=== PATIENT | male | born 1970 | race Caucasian/White ===

== ENCOUNTER → 2016-08-09 | Outpatient (CLI) | payer BC ==
[~2016-08-09] MED LIST: PRLSR20 PO
[2016-08-09 12:19] LABS: URINE APPEARANCE CLEAR (CLEAR); URINE BILIRUBIN NEG (NEG); URINE COLOR DK YELLOW; URINE NITRITE NEG (NEG); URINE SPECIFIC GRAVITY 1.026 (1.000-1.030); UROBILINOGEN NEG (NEG)
[2016-08-09 12:20] LABS: BASO % 0.6 %; BASO ABS # 0.03 K/uL (0-0.2); COMPLETE YES; EOS % 1.1 %; HEMATOCRIT 45.3 % (42-52); LYMPH % 25.9 %; LYMPH ABS # 1.21 K/uL (1.2-3.4); MEAN CELL VOLUME 87.3 fL (80-100); MEAN CORPUSCULAR HEMOGLOBIN 29.9 pg (25-34); MEAN CORPUSCULAR HGB CONC 34.2 g/dl (32-36); MEAN PLATELET VOLUME 10.2 fL (7.4-10.4); MONO % 6.4 %; PLATELET COUNT 213 K/uL (130-400); RED BLOOD COUNT 5.19 M/uL (4.7-6.1); WHITE BLOOD COUNT 4.68 K/uL (4.8-10.8)
[2016-08-09 12:30] LABS: MANUAL MICROSCOPIC REQUIRED? NO; REVIEW REQ? NO
[2016-08-09 12:33] LABS: ALT/SGPT 22 U/L (12-78); BLOOD UREA NITROGEN 23 mg/dl (7-18); BUN/CREATININE RATIO 20.6 (10-20); CALCIUM 8.8 mg/dl (8.5-10.1); CARBON DIOXIDE 27 mmol/L (21-32); CHLORIDE 106 mmol/L (98-107); GLUCOSE 108 mg/dl (70-99); POTASSIUM 4.4 mmol/L (3.5-5.1); SODIUM 142 mmol/L (136-145)
[2016-08-09 12:43] LABS: ALB/GLOB RATIO 1.3 (0.9-2); ALKALINE PHOSPHATASE 59 U/L (45-117); AST/SGOT 16 U/L (15-37); THYROID STIMULATING HORMONE 0.702 uIu/ml (0.300-4.500)
[2016-08-09 15:31] LABS: LYME DISEASE AB IGG NEG (NEG); LYME DISEASE AB IGM NEG (NEG)
== END | disposition home or self-care (01) ==
LOC: C.LABBFT 10:03
PROVIDERS: ATTEND Nurse Practitioner
DX: R20.0 Anesthesia of skin (principal); R25.1 Tremor, unspecified; R42 Dizziness and giddiness

== ENCOUNTER → 2016-08-15 | Outpatient (CLI) | payer BC ==
[~2016-08-15] MED LIST changes: +GADAVIST IV PRN
--- NOTE | 2016-08-15 17:36 | DIAGNOSTIC IMAGING REPORT ---
MRI OF THE BRAIN WITHOUT AND WITH IV CONTRAST CLINICAL HISTORY: Right facial numbness, and progressive tremors and dizziness. COMPARISON STUDY: 11/27/2010 TECHNIQUE: MRI of the brain was performed from the vertex to the skull base utilizing various T1 and T2 weighted sequences. Following the IV administration of 10 mL of Gadavist contrast, additional enhanced images were obtained. FINDINGS: Sagittal T1, axial diffusion, proton density and T2 weighted axial, coronal FLAIR, and pre and post axial T1-weighted images were acquired. These were supplemented with post gadolinium coronal T1 weighted images. No intra or extra-axial mass lesions are visualized. Axial diffusion-weighted images reveal no evidence of acute or subacute infarction. There is no evidence of ventricular dilatation. Proton density T2-weighted and FLAIR images reveal no significant intraparenchymal signal abnormalities. There are no abnormal flow voids. There is no evidence of pathologic enhancement. IMPRESSION: Normal MRI of the brain for age Electronically signed by: Sonido De La Paz M.D. 08/15/2016 5:34 PM Dictated Date/Time: 08/15/2016 5:32 PM
== END | disposition home or self-care (01) ==
LOC: C.MRI 16:01
PROVIDERS: ATTEND Nurse Practitioner
DX: R42 Dizziness and giddiness (principal); R25.1 Tremor, unspecified; R20.0 Anesthesia of skin

== ENCOUNTER 2019-08-24 10:26 | Observation (INO) ==
[2019-08-24] MEDS ORDERED: OXYCODONE/ACETAMINOPHEN 5mg/325mg TAB PO STA (10:43)
[2019-08-24] MEDS ORDERED: CYCLOBENZAPRINE HCL 10 MG TAB PO STA (10:43)
[2019-08-24] MEDS ORDERED: DEXAMETHASONE **PF** INJ 10 MG/ML VIAL IM ONE (10:43)
--- NOTE | 2019-08-24 10:48 | Emergency Department Note ---
Impression & Plan Intractable low back pain, Strain of lumbar region, Lumbar radiculopathy ED Provider Note CHIEF COMPLAINT: Low back pain HISTORY OF PRESENT ILLNESS: This 49-year-old male patient presents to the emergency department, ambulatory, complaining of pain in the low back which began yesterday after moving a bed around at home. The patient reports pain in the left hip rating down into the left foot. The pain was gradual in onset, awoke this morning and pain is now constant and worse with movement. The patient notes the pain as shooting and throbbing and a 8/10. The patient has taken 600 mg ibuprofen and a Blandford at 8:30 AM without significant relief of the pain. The patient denies any loss of control of their bowel or bladder functions. There has been no leg numbness or weakness, and no change in sensation. No nausea or vomiting or abdominal pain. No chest pain or shortness of breath. The patient has had prior neck surgery and similar pain approximately 20 years ago. No dysuria or increased urinary frequency. REVIEW OF SYSTEMS: A 10 system review of systems was performed with positives and pertinent negatives listed in the history of present illness. All other systems were reviewed and are negative. ALLERGIES: Cipro, morphine PHYSICAL EXAM: VITALS: Vitals are noted on the nurse's note and reviewed by myself. Vital signs stable. GENERAL: This is a 49-year-old white male, in no acute distress, nondiaphoretic, well-developed well-nourished. SKIN: The skin was without rashes, erythema, edema, or bruising. Capillary refill less than 2 seconds. NECK: Supple without nuchal rigidity. No cervical spine tenderness. No paraspinous muscle tenderness. HEART: Regular rate and rhythm without murmurs gallops or rubs. LUNGS: Clear to auscultation bilaterally without wheezes, rales or rhonchi. ABDOMEN: Positive bowel sounds x 4. Normal tympanic percussion. Soft, nontender, without masses or organomegaly. Mancuso sign negative. MUSCULOSKELETAL: No muscle atrophy, erythema, or edema noted of the back. There is no tenderness over the lumbar spinous processes. There is no tenderness over the paraspinous muscles on the left. There is tenderness over the left SI joint. There is no tenderness over the thoracic spine or paraspinous muscles. There are muscle spasms present. The patient is slow to move around with maximum tenderness with sitting from a lying position. Positive left side straight leg raise test. NEURO: Patient was alert and oriented to person place and time. Normal sensation to light and sharp touch. Deep tendon reflexes 2+ in the lower extremities. Dorsalis pedis pulse 2+ bilaterally. Strength 5/5 and equal in the bilateral lower extremities. RADIOLOGY: XR lumbar spine 2-3V CLINICAL HISTORY: low back pain, left radiculopathy COMPARISON STUDY: No previous studies for comparison. FINDINGS: Alignment of the lumbar spine is anatomic. Vertebral body heights are maintained. There is no fracture or suspicious lesion by radiography. There is moderate disc space narrowing at L4-L5. There is mild to moderate multilevel facet arthrosis. Endplate osteophytosis is noted at multiple levels. IMPRESSION: 1. No acute lumbar spine fracture. 2. [id number] multilevel degenerative disc disease and facet arthrosis within the lumbar spine. ACT 112: Negative or not required by law. Electronically signed by: Travis Keene M.D. 08/24/2019 11:30 AM EMERGENCY DEPARTMENT COURSE: The patient was seen and evaluated as above. Patient was medicated with cyclobenzaprine, IM Decadron, and Percocet. X-rays p erformed reviewed by myself and radiologist as above. Discussed findings with patient at bedside. He was reassessed and notes ongoing severe pain. The patient was medicated with 1 mg IM Dilaudid. Patient was reassessed and continues to complain of ongoing pain. He does not feel comfortable going home and feels that he will be unable to manage his pain with p.o. pain medication. I advised the patient that his option at this point if he is not discharged home would be an observation admission for pain control. The patient would like to stay in the hospital for pain control until it improves. IV access obtained, labs drawn. Labs unrevealing with no leukocytosis or electrolyte abnormality. Urinalysis still pending. I discussed the case with the manager field sales as well as Dr. Glaser, [facility] hospitalist physician. She did agree to see and evaluate the patient. Please see her dictation regarding ongoing management care of this patient. Differential diagnosis includes musculoskeletal, disc herniation, fracture, metastatic disease, cord compression, discitis, sciatica, cauda equina, infection, aortic disease, renal colic, gastrointestinal, as well as other pathologies. I attest that I have personally reviewed the patient's current medication list. Blood Pressure Screening: Patient was found to have a slightly elevated blood pressure due to circumstances. I do not believe that the patient requires hypertension monitoring. The chart was completed utilizing [employer] Speech voice recognition software. Grammatical errors, random word insertions, pronoun errors, and incomplete sentences are an occasional consequence of this system due to software limitations, ambient noise, and hardware issues. Any formal questions or concerns about the content, text, or information contained within the body of this dictation should be directly addressed to the provider for clarification. Past Med/Surg History Medical History Cervical stenosis of spinal canal (Acute 06/09/14) GERD (gastroesophageal reflux disease) (Chronic) Surgical History (Updated 05/25/19 @ 12:41 by Daksha Murrell) H/O arthroscopy H/O nasal septoplasty H/O sinus surgery History of neck surgery Family History (Updated 05/25/19 @ 12:41 by Daksha Murrell) Other Breast cancer Diabetes Denies family history of Coronary heart disease Colorectal cancer Social History Preferred Language: [place] Communication Ability: Effective Visual Impairment: No Limitations Hearing Ability: Normal Beliefs That Will Affect Care: None marital status: current occupational status: employed current occupation: [employer] Feels Safe at Home: Yes Smoking Status: Never smoker Allergies Allergies Allergy/AdvReac Type Severity Reaction Status Date / Time Cipro Allergy Unknown SEVERLY ILL Unverified 08/31/14 20:27 ciprofloxacin Allergy Unknown SEVERLY ILL Unverified 08/24/19 12:13 morphine Allergy Unknown HIVES Verified 08/24/19 12:13 Quinolones Allergy Unknown Verified 08/24/19 12:13 Home Meds Home Medications Medication Instructions Recorded Confirmed ibuprofen [Advil] 600 mg PO Q6H PRN 08/24/19 08/24/19 oxycodone-acetaminophen [Percocet] 1 - 2 tab PO Q6H 08/24/19 08/24/19 Results & Data (ED) Vital Signs Vital Signs - 24 hr 08/24/19 10:27 08/24/19 11:56 08/24/19 14:00 Temperature 36.6 C Temperature Source Oral Pulse Rate 58 L Pulse Rate [Apical] 55 L 60 Respiratory Rate 20 18 18 Respiratory Effort / Characteristics Non-Labored Respiratory Depth Normal Blood Pressure 147/87 H Blood Pressure [Left Arm] 111/66 115/74 Blood Pressure Mean 107 Blood Pressure Mean [Left Arm] 81 87 Blood Pressure Position Sitting Pulse Oximetry 99 98 98 Oxygen Delivery Method Room Air Room Air Room Air Sepsis Recent Fever Within 48 Hours No Sepsis New/Unexplained Change in Mental Status No Sepsis Action Taken by Nursing No Action Required Laboratory Data Result diagrams: 08/24/19 12:30 08/24/19 12:30 Lab Results 08/24/19 08/24/19 Range/Units 12:30 12:30 WBC 5.89 (4.8-10.8) K/uL RBC 5.09 (4.7-6.1) M/uL Hgb 15.5 (14.0-18.0) g/dL Hct 45.1 (42-52) % MCV 88.6 (80-100) fL MCH 30.5 (25-34) pg MCHC 34.4 (32-36) g/dL RDW Std Deviation 40.5 (36.4-46.3) fL RDW Coeff of Daniella 12.5 (11.5-14.5) % Plt Count 170 (130-400) K/uL MPV 10.8 H (7.4-10.4) fL Immature Gran % (Auto) 0.0 % Neut % (Auto) 88.6 % Lymph % (Auto) 9.0 % Arroyo % (Auto) 1.9 % Eos % (Auto) 0.2 % Baso % (Auto) 0.3 % Immature Gran # (Auto) 0.00 (0.00-0.02) K/uL Neut # (Auto) 5.22 (1.4-6.5) K/uL Lymph # (Auto) 0.53 L (1.2-3.4) K/uL Arroyo # (Auto) 0.11 (0.11-0.59) K/uL Eos # (Auto) 0.01 (0-0.5) K/uL Baso # (Auto) 0.02 (0-0.2) K/uL Sodium 139 (136-145) mmol/L Potassium 4.6 (3.5-5.1) mmol/L Chloride 108 H (98-107) mmol/L Carbon Dioxide 27 (21-32) mmol/L Anion Gap 3.0 (3-11) BUN 19 H (7-18) mg/dl Creatinine 1.06 (0.6-1.4) mg/dl Est Cr Clr Drug Dosing Not Reportable Est GFR ( Amer) 95.0 Est GFR (Non-Af Amer) 82.0 BUN/Creatinine Ratio 17.5 (10-20) Glucose 118 H (70-99) mg/dl Calcium 8.8 (8.5-10.1) mg/dl Administered Medications Discontinued Medications Cyclobenzaprine HCl (Flexeril) 10 mg PO NOW STA Stop: 08/24/19 10:44 Last Admin: 08/24/19 10:48 Dose: 10 mg Documented by: [id number] Dexamethasone Sodium Phosphate (Decadron Pf) 10 mg IM NOW ONE Stop: 08/24/19 10:44 Last Admin: 08/24/19 10:48 Dose: 10 mg Documented by: [id number] Hydromorphone HCl (Dilaudid) 1 mg IM NOW STA Stop: 08/24/19 11:26 Last Admin: 08/24/19 11:31 Dose: 1 mg Documented by: [id number] Oxycodone/Acetaminophen (Percocet 5mg/325mg) 1 tab PO NOW STA Stop: 08/24/19 10:44 Last Admin: 08/24/19 10:48 Dose: 1 tab Documented by: [id number] Discharge Plan Visit Data Chief Complaint: Back Injury/Pain Stated Complaint: back pain ED Provider: Rachel Horton ED Midlevel Provider: Iva Crowley Discharge Problem: Intractable low back pain, Strain of lumbar region, Lumbar radiculopathy Patient Disposition: Admitted As Inpatient Condition: Good Forms Stand Alone Forms: [email or web address] Prescriptions Prescriptions: No Action oxycodone-acetaminophen [Percocet] 5-325 mg tablet 1 - 2 tab PO Q6H RF: 0 ibuprofen [Advil] 200 mg Tablet 600 mg PO Q6H PRN (Reason: Pain) RF: 0 Referrals Referrals: Omayra Adhikari CRNP [Primary Care Provider] -
[2019-08-24] MEDS ORDERED: HYDROmorphone INJ 1 MG/ML SYRINGE IM STA (11:25)
--- NOTE | 2019-08-24 11:31 | XRay Report ---
XR lumbar spine 2-3V CLINICAL HISTORY: low back pain, left radiculopathy COMPARISON STUDY: No previous studies for comparison. FINDINGS: Alignment of the lumbar spine is anatomic. Vertebral body heights are maintained. There is no fracture or suspicious lesion by radiography. There is moderate disc space narrowing at L4-L5. The re is mild to moderate multilevel facet arthrosis. Endplate osteophytosis is noted at multiple levels . IMPRESSION: 1. No acute lumbar spine fracture. 2. [id number] multilevel degenerative disc disease and facet arthrosis within the lumbar spine. ACT 112: Negative or not required by law. Electronically signed by: Travis Keene M.D. 08/24/2019 11:30 AM
[2019-08-24 12:52] LABS: Basophils # (auto) 0.02 K/uL (0-0.2); Basophils % (auto) 0.3 %; Eosinophils # (auto) 0.01 K/uL (0-0.5); Eosinophils % (auto) 0.2 %; Hematocrit (blood only) 45.1 % (42-52); Hemoglobin 15.5 g/dL (14.0-18.0); Lymphocytes # (auto) 0.53 K/uL (1.2-3.4); Mean Corpuscular Hemoglobin 30.5 pg (25-34); Mean Corpuscular Hgb Conc 34.4 g/dL (32-36); Mean Corpuscular Volume 88.6 fL (80-100); Mean Platelet Volume 10.8 fL (7.4-10.4); Monocytes # (auto) 0.11 K/uL (0.11-0.59); Monocytes % (auto) 1.9 %; Neutrophils # (auto) 5.22 K/uL (1.4-6.5); Neutrophils % (auto) 88.6 %; Platelet Count 170 K/uL (130-400); RDW Coefficient of Variation 12.5 % (11.5-14.5); RDW Standard Deviation 40.5 fL (36.4-46.3); Red Blood Count 5.09 M/uL (4.7-6.1); White Blood Count 5.89 K/uL (4.8-10.8)
[2019-08-24 12:59] LABS: BUN Creatinine Ratio 17.5 (10-20); Blood Urea Nitrogen 19 mg/dl (7-18); Calcium 8.8 mg/dl (8.5-10.1); Carbon Dioxide 27 mmol/L (21-32); Chloride 108 mmol/L (98-107); Glucose 118 mg/dl (70-99); Potassium 4.6 mmol/L (3.5-5.1); Sodium 139 mmol/L (136-145)
[2019-08-24] MEDS ORDERED: HYDROmorphone INJ 1 MG/ML SYRINGE IV PRN (15:47)
[2019-08-24] MEDS ORDERED: DEXAMETHASONE SOD INJ 4 MG/ML VIAL IV SCH (15:47)
[2019-08-24] MEDS ORDERED: ONDANSETRON INJ 2 MG/ML 2 ML VIAL IV PRN (15:47)
[2019-08-24] MEDS ORDERED: IBUPROFEN 600 MG TAB PO PRN (15:47)
[2019-08-24] MEDS ORDERED: MAGNESIUM HYDROXIDE SUSP 30 ML UDC PO PRN (15:47)
[2019-08-24] MEDS ORDERED: ACETAMINOPHEN 325 MG TAB PO PRN (15:47)
[2019-08-24] MEDS: OXYCODONE/ACETAMINOPHEN 5mg/325mg TAB PO SCH ×3 (16:00→22:01)
--- NOTE | 2019-08-24 16:40 | History & Physical Report ---
Date of Service August 24, 2019 Assessment & Plan (1) Intractable low back pain: XR neg No improvement with ED interventions Start decadron 8mg Q6h and monitor PRN morphine Has appt with Dr. Hawkins on Saturday. Discussed MRI now vs monitoring with steroids in an effort to avoid and pt states he prefers to hold on MRI for now (2) GERD (gastroesophageal reflux disease): PRN as prior (3) DVT prophylaxis: SCDs Admission and Anticipated Discharge Date Admission Date: August 24, 2019 History of Present Illness Primary Care Provider: SCOTT Garcia 49 y/o M c/o intractable LBP. Pt states he was moving a bed yesterday when he had sudden onset of L sided LBP. He went for a run after and noted that his back was very sore, which is unusual for him. He took some ibuprofen and went to bed. He woke this AM with worsening LBP that moved into his L hip and LE. He is unable to ambulate due to the pain and feels some LE weakness as well. He did try more ibuprofen and this did not help. He had percocet at home from a prior surgery and took this, but also no improvement. Pt came to the ED at that time. Denies loss of bowel or bladder continence. No prior hx of back issues. Pt feels his usual at this time. Pt denies fever, SOB, chest pain, abd pain, n/v/c/d, LE or swelling. In the ED, pt was given flexaril, percocet, and decadron with no improvement in sx. He did have some relief with dilaudid. "It took the edge off, but barely." He cannot ambulate and feels he cannot go home with his current level of pain. He was able to get an appt with Dr. Hawkins, but not until Saturday. If sx are ongoing, he is planning MRI at that time. Allergies Allergy/AdvReac Type Severity Reaction Status Date / Time Cipro Allergy Unknown SEVERLY ILL Unverified 08/31/14 20:27 ciprofloxacin Allergy Unknown SEVERLY ILL Unverified 08/24/19 12:13 morphine Allergy Unknown HIVES Verified 08/24/19 12:13 Quinolones Allergy Unknown Verified 08/24/19 12:13 Home Medications Home Medications Medication Instructions Recorded Confirmed Type ibuprofen [Advil] 600 mg PO Q6H PRN 08/24/19 08/24/19 History oxycodone-acetaminophen [Percocet] 1 - 2 tab PO Q6H 08/24/19 08/24/19 History Past Med/Surg History Medical History Cervical stenosis of spinal canal (Acute 06/09/14) GERD (gastroesophageal reflux disease) (Chronic) Surgical History H/O arthroscopy H/O nasal septoplasty H/O sinus surgery History of neck surgery Family History Other Breast cancer Diabetes Denies family history of Coronary heart disease Colorectal cancer Social History Preferred Language: Fijian Communication Ability: Effective Visual Impairment: No Limitations Hearing Ability: Normal Lever Operator Required: No Beliefs That Will Affect Care: None marital status: Current Living Situation: Spouse Current Living Situation Comment: current occupational status: employed current occupation: [employer] Other Information That Helps Us Care for You: No Feels Safe at Home: Yes Safety Concerns: Feels Safe At This Time Smoking Status: Never smoker Do You Dip or Chew Tobacco: No ; Second Hand Exposure: No ; Hx Alcohol Use: No Hx Substance Use: No Review of Systems Review of Systems: Pertinent positives and negatives reviewed in HPI--all others negative Physical Exam Constitutional: WD/WN, vitals as above Eyes: normal visual ceron by confrontation and + anicteric sclerae Neck: normal visual inspection and trachea midline Respiratory: normal respiratory effort, lungs clear to auscultation Cardiovascular: Rate/Rhythm: regular rate and regular rhythm Gastrointestinal (Abdomen): Inspection/Auscultation: abdomen not distended Percussion/Palpation: abdomen soft; abdomen nontender Musculoskeletal: Head/Neck/Chest: normocephalic and head atraumatic negative for edema, peripheral pulses intact L sided lumbar spasm with point TTP noted around L4-5 area Skin: no rashes, warm and dry Neurologic: awake; not confused Speech / Cognition: normal speech Psychiatric: A+Ox3, euthymic affect Results & Data Results & Data ([facility]) Vital Signs (Past 12 Hours) Vital Signs Temp Pulse Pulse Pulse Resp BP BP 08/24/19 15:35 36.8 C 50 L 16 115/66 08/24/19 15:12 51 L 16 114/69 08/24/19 14:00 60 18 115/74 08/24/19 11:56 55 L 18 111/66 08/24/19 10:27 36.6 C 58 L 20 147/87 H Pulse Ox 08/24/19 15:35 98 08/24/19 15:12 99 08/24/19 14:00 98 08/24/19 11:56 98 08/24/19 10:27 99 Diagnostic Findings Lumbar XR: neg for acute Code Status & VTE Plan Code Status Full code VTE Prophylaxis Plan VTE Prophylaxis will be ordered: Yes PG Care Time/CCT Total # of Minutes Spent Total Time Spent with Patient: Total time spent is greater than 50% in coordination of care (as documented) at patient's floor/unit and/or counseling patient: Coding Level of Care Code 85014 OBS Care - Level 2 Diagnoses Intractable low back pain M54.5 GERD (gastroesophageal reflux disease) K21.9 DVT prophylaxis Z29.9
[2019-08-24] MEDS: DEXAMETHASONE SOD PHOSPHATE 8 MG in SYRINGE 0 ML IV SCH ×2 (16:47→22:03)
[2019-08-24 19:07] LABS: Appearance Urine Clear (Clear); Bilirubin Urine Negative (Negative); Blood Urine Negative (Negative); Color Urine Yellow; Glucose Urine UA Negative (Negative); Ketones Urine Trace (Negative); Leukocyte Esterase Urine Negative (Negative); Nitrite Urine Negative (Negative); Protein Urine Negative (Negative); Specific Gravity Urine 1.019 (1.000-1.030); Urobilinogen Urine Negative (Negative); pH Urine 6.5 (4.5-7.5)
[2019-08-25] MEDS: OXYCODONE/ACETAMINOPHEN 5mg/325mg TAB PO SCH ×2 (03:51→10:00)
[2019-08-25] MEDS: DEXAMETHASONE SOD PHOSPHATE 8 MG in SYRINGE 0 ML IV SCH ×2 (03:51→10:00)
[2019-08-25] MEDS ORDERED: LIDOCAINE 5% 1 PATCH TD SCH (09:00)
--- NOTE | 2019-08-25 12:55 | Discharge Summary ---
Date of Service August 25, 2019 Admission HPI Per Admitting Provider 49 y/o M c/o intractable LBP. Pt states he was moving a bed yesterday when he had sudden onset of L sided LBP. He went for a run after and noted that his back was very sore, which is unusual for him. He took some ibuprofen and went to bed. He woke this AM with worsening LBP that moved into his L hip and LE. He is unable to ambulate due to the pain and feels some LE weakness as well. He did try more ibuprofen and this did not help. He had percocet at home from a prior surgery and took this, but also no improvement. Pt came to the ED at that time. Denies loss of bowel or bladder continence. No prior hx of back issues. Pt feels his usual at this time. Pt denies fever, SOB, chest pain, abd pain, n/v/c/d, LE or swelling. In the ED, pt was given flexaril, percocet, and decadron with no improvement in sx. He did have some relief with dilaudid. "It took the edge off, but barely." He cannot ambulate and feels he cannot go home with his current level of pain. He was able to get an appt with Dr. Hawkins, but not until Saturday. If sx are ongoing, he is planning MRI at that time. Admission Exam Per Admitting Provider Constitutional: WD/WN, vitals as above Eyes: normal visual ceron by confrontation and + anicteric sclerae Neck: normal visual inspection and trachea midline Respiratory: normal respiratory effort, lungs clear to auscultation Cardiovascular: Rate/Rhythm: regular rate and regular rhythm Gastrointestinal (Abdomen): Inspection/Auscultation: abdomen not distended Percussion/Palpation: abdomen soft; abdomen nontender Musculoskeletal: Head/Neck/Chest: normocephalic and head atraumatic negative for edema, peripheral pulses intact L sided lumbar spasm with point TTP noted around L4-5 area Skin: no rashes, warm and dry Neurologic: awake; not confused Speech / Cognition: normal speech Psychiatric: A+Ox3, euthymic affect Principal Diagnosis L5 lumbar radiculopathy Lumbar back strain Intractable back pain Discharge Exam Constitutional WD/WN, vitals as above Eyes + anicteric sclerae; normal pupil size Respiratory normal respiratory effort; no respiratory distress Musculoskeletal No central spinal tenderness, Left paraspinal tenderness around L4/5 on palpation Neurologic moves all extremities and + focal motor deficit (left 1st toe dorsiflexion 4/5, ankle plantar/dorsiflexion 5/5); not confused Motor/Sensory: no sensory deficit Otherwise normal b/l LE motor, sensory examination. Psychiatric A+Ox3, euthymic affect Discharge Data Allergies Allergy/AdvReac Type Severity Reaction Status Date / Time Cipro Allergy Unknown SEVERLY ILL Unverified 08/31/14 20:27 ciprofloxacin Allergy Unknown SEVERLY ILL Unverified 08/27/19 10:50 morphine Allergy Unknown HIVES Verified 08/27/19 10:50 Quinolones Allergy Unknown Verified 08/27/19 10:50 Consultations 08/24/19 14:13 ED Decision to Admit Stat Hospital Course (1) Lumbar radiculopathy: Reno Durand is a 49 year old male admitted for observation overnight for intractable back pain. Based on history, lumbar spine XR and exam findings suspected to have left L5 radiculopathy caused by disc herniation in addition to lumbar paraspinal muscle strain. Most notably has reduced 1st toe dorsiflexion on exam. Improved with IV Decadron and prescribed PO Decadron on discharge with tapering course over 8 days. He already has follow up arranged tomorrow with Dr Hawkins for ongoing management of this. Percocet prescribed as needed in addition (5 tabs sent to pharmacy). Recommended no high impact activities (such as running) until otherwise advised. He is a keen runner and suspect this was caused by ongoing high impact activities. Highly recommended he adds more stretching to his exercise regimen once he recovers from this. (2) Intractable low back pain: (3) GERD (gastroesophageal reflux disease): (4) Strain of lumbar region: Total Time Total Time Spent Total Time Spent (In Minutes): 25 Total Time Includes: Examination of the Patient, Discharge Planning and Medication Reconciliation Discharge Plan Discharge Items Patient Disposition: Home - Self-Care Reason For Visit: INTRACTABLE BACK PAIN Discharge Diagnosis: L5 lumbar radiculopathy Lumbar back strain Intractable back pain Condition on Discharge: Good Activity: Per Instructions section Non-emergency contact: Surgeon Call non-emergency contact if: you have any medication questions and your symptoms worsen Follow-up/Referrals: Omayra Adhikari CRNP [Primary Care Provider] - (no follow up required) Harsha Hawkins DO [Surgeon] - (as previous arranged) Diet: Regular Addtl Attending Provider Instructions: You were admitted overnight for intractable back pain. Based on history, lumbar spine XR and exam findings suspect you have L5 radiculopathy caused disc herniation. This was treated with IV steroids and you should continue on tapering course of Decadron as prescribed. Avoid NSAIDs (such as ibuprofen, Advil, Motrin, naproxen, meloxicam etc...) while on steroids unless otherwise advised by a physician. If you develop heartburn or gastritis while on steroids recommend using over the counter generic omeprazole (brand name Prilosec) or contacting your orthopedic surgeon or primary care physician. If you develop black stool please contact your primary care physician immediately. You can use acetaminophen regularly in addition to this for pain relief OR Percocet (this contains acetaminophen in addition to oxycodone) as needed. Do not exceed total 3250mg acetaminophen (Tylenol) in 24 hours. You may also wish to purchase lidocaine patch over the counter if this has been helpful. Please follow up with your back surgeon Dr Hawkins as previously arranged for ongoing management. Recommend no high impact activities (such as running) until otherwise advised from a healthcare provider, but please continue to ambulate as able. Recommend avoiding all strenuous activities until follow up with Dr Hawkins. Kind regards, Dr Kareem Kelly Pending Studies at Discharge: No Stand-Alone Forms: [facility], Opioid Pain Management, Smoking Cessation Medications and DC Order Prescriptions: New dexamethasone [Decadron] 4 mg tablet See Rx Instructions .ROUTE .COMPLEX Qty: 10 RF: 0 oxycodone-acetaminophen [Percocet] 5-325 mg tablet 1 - 2 tab PO Q6H PRN (Reason: pain) Qty: 5 RF: 0 Discontinued oxycodone-acetaminophen [Percocet] 5-325 mg tablet 1 - 2 tab PO Q6H RF: 0 ibuprofen [Advil] 200 mg Tablet 600 mg PO Q6H PRN (Reason: Pain) RF: 0 Discharge Orders: Discharge Order (Routine); Ordered 08/25/19 Ordered By: Kareem Fierro/Other Patient Handouts: Back Pain Relieve, Back Safety Basics Good Posture Admission Data Admit Date/Time: 08/24/19 14:13 Attending Provider: Myriam Glaser Admit Provider: Myriam Glaser Primary Care Provider: Omayra Adhikari Other Interventions: Discharge Summary Assessment (RN) Last Done: 08/25/19 13:17 DC Date/Time DO NOT enter until pt leaves facility: 08/25/19 14:17 Coding Level of Care Code 36114 OBS Care - Discharge Diagnoses Lumbar radiculopathy M54.16 Intractable low back pain M54.5 GERD (gastroesophageal reflux disease) K21.9 Strain of lumbar region S39.012A Encounter type: initial encounter
== END 2019-08-25 14:17 | disposition home or self-care (01) ==
LOC: 3E 10:26 → ED 10:26 → 3E 15:14

== ENCOUNTER 2019-08-29 21:28 | Inpatient (IN) ==
[2019-08-29] MEDS ORDERED: SODIUM CHLORIDE 0.9% 1000ML 1,000 ML IV ONE (21:55)
[2019-08-29] MEDS ORDERED: HYDROmorphone INJ 1 MG/ML SYRINGE IV STA (21:55)
--- NOTE | 2019-08-29 22:08 | Emergency Department Note ---
History of Present Illness General Chief complaint: Abdominal Pain Stated complaint: PAIN IN STOMACH Time Seen by Provider: 08/29/19 21:36 Source: patient Mode of arrival: ambulatory Limitations: no limitations History of Present Illness Maximum Pain Intensity: 9 This patient is a 49-year-old male who presents to the emergency department for evaluation of severe upper abdominal pain. Patient was seen in the ED earlier today and diagnosed with possible pancreatitis. He reports that his pain has been severe throughout the day and is only relieved by taking oxycodone. Pain is worsened when he has anything to eat or with any movement. He rates his discomfort a 9/10 and states it is a severe, sharp pain in the epigastric region. Pain does not radiate anywhere. He has not vomited today, but did have some nausea and vomiting yesterday which he feels was more associated with the severe pain he was having. He denies any urinary symptoms, changes in bowel movements, chest pain, shortness of breath, or cough. He has not taken his temperature at home. He denies any history of similar symptoms. He was r ecently treated with a course of prednisone for lumbar radiculopathy. He reports a history of multiple orthopedic surgeries, denies any history of abdominal surgeries or other chronic medical conditions. He denies any recent travel. He denies alcohol use. Home Medications Home Medications Medication Instructions Recorded Confirmed Type ondansetron 4 mg PO Q6 PRN #14 tab 08/29/19 08/29/19 Rx oxycodone-acetaminophen 1 tab PO Q8H PRN 08/29/19 08/29/19 History Allergies Allergy/AdvReac Type Severity Reaction Status Date / Time Cipro Allergy Unknown SEVERLY ILL Unverified 08/31/14 20:27 ciprofloxacin Allergy Unknown SEVERLY ILL Unverified 08/29/19 10:55 morphine Allergy Unknown HIVES Verified 08/29/19 22:05 Quinolones Allergy Unknown Verified 08/29/19 10:55 Past Med/Surg History Medical History Cervical stenosis of spinal canal (Acute 06/09/14) GERD (gastroesophageal reflux disease) (Chronic) Surgical History H/O arthroscopy H/O nasal septoplasty H/O sinus surgery History of neck surgery Social History Preferred Language: Syriac Communication Ability: Effective Visual Impairment: No Limitations Hearing Ability: Normal Coke Oven Patcher Required: No Beliefs That Will Affect Care: None marital status: Current Living Situation: Spouse Current Living Situation Comment: current occupational status: employed current occupation: [employer] Other Information That Helps Us Care for You: No Feels Safe at Home: Yes Safety Concerns: Feels Safe At This Time Smoking Status: Never smoker Do You Dip or Chew Tobacco: No ; Second Hand Exposure: No ; Tobacco Cessation Education Requested by Patient: No Hx Alcohol Use: No Hx Substance Use: No Review of Systems A total of 10 systems reviewed and were otherwise negative Physical Exam Vital Signs Vital Signs - 24 hr 08/29/19 21:32 08/29/19 23:23 Temperature 38.3 C H Temperature Source Oral Pulse Rate 73 Pulse Rate [Finger] 74 Respiratory Rate 20 18 Respiratory Effort / Characteristics Non-Labored Respiratory Depth Normal Blood Pressure 156/67 H Blood Pressure [Right Arm] 130/74 Blood Pressure Mean 96 Blood Pressure Mean [Right Arm] 92 Pulse Oximetry 94 94 Oxygen Delivery Method Room Air Room Air Sepsis Recent Fever Within 48 Hours Yes Sepsis New/Unexplained Change in Mental Status No Sepsis Action Taken by Nursing No Action Required VITALS: Vitals are noted on the nurse's note and reviewed by myself. GENERAL: This is a 49-year-old male, in no significant distress but uncomfortab le appearing, well-developed well-nourished. SKIN: The skin was without rashes. No jaundice. EYES: Pupils equal round and reactive to light and accommodation. No scleral icterus. MOUTH: Mucous membranes moist. Tonsils are not enlarged. Pharynx without erythema or exudate. NECK: Supple without nuchal rigidity. No lymphadenopathy. HEART: Regular rate and rhythm without murmurs gallops or rubs. LUNGS: Clear to auscultation bilaterally without wheezes, rales or rhonchi. No retractions or accessory muscle use. ABDOMEN: Positive bowel sounds x 4. Abdomen is soft and nondistended. Moderate tenderness to palpation in the epigastric region. Mild tenderness in the right upper quadrant. No guarding or rebound tenderness. EXTREMITIES: No pitting edema of the lower extremities. NEURO: Patient was alert and oriented to person place and time. Course Consultations Consultation #1: Dr. Ed Lomas [facility] [place] hospitalist Administered Medications Sodium Chloride (Nss 1000ml) 1,000 mls @ 200 mls/hr IV .Q5H MAGDALENA Stop: 09/29/19 01:28 Last Admin: 08/30/19 01:48 Dose: 200 mls/hr Documented by: [id number] Discontinued Medications Hydromorphone HCl (Dilaudid) 1 mg IV NOW STA Stop: 08/29/19 21:56 Last Admin: 08/29/19 22:14 Dose: 1 mg Documented by: [id number] Hydromorphone HCl (Dilaudid) 0.5 mg IV NOW STA Stop: 08/30/19 00:13 Last Admin: 08/30/19 00:15 Dose: 0.5 mg Documented by: [id number] Sodium Chloride (Nss 1000ml) 1,000 mls @ 999 mls/hr IV .Q1H1M ONE Stop: 08/29/19 22:55 Last Infusion: 08/29/19 23:29 Dose: 0 mls/hr Documented by: [id number] Admin: 08/29/19 22:14 Dose: 999 mls/hr Documented by: [id number] Ioversol (Optiray 320 100ml) 94 ml IV ONCE PRN PRN Reason: Interaction Checking Stop: 09/02/19 22:42 Last Admin: 08/29/19 22:43 Dose: 94 ml Documented by: [id number] Medical Decision Making Differential Diagnosis Differential diagnosis includes appendicitis, testicular torsion, infections, diverticulitis, UTI, obstruction, mesenteric ischemia, aortic pathology, inflammatory bowel disease, renal colic, PUD, pancreatitis, biliary pathology, hernia, volvulus, constipation, as well as other pathologies. Medical Records Attestation: I reviewed the patient's medical records. Home Medications Current Medication List: was personally reviewed by me Laboratory Data Attestation: I reviewed the patient's lab results. Result diagrams: 08/29/19 22:20 08/29/19 22:20 Lab Results 08/29/19 08/29/19 08/29/19 Range/Units 22:20 22:20 22:20 WBC 10.93 H (4.8-10.8) K/uL RBC 5.07 (4.7-6.1) M/uL Hgb 15.9 (14.0-18.0) g/dL Hct 45.2 (42-52) % MCV 89.2 (80-100) fL MCH 31.4 (25-34) pg MCHC 35.2 (32-36) g/dL RDW Std Deviation 41.1 (36.4-46.3) fL RDW Coeff of Daniella 12.7 (11.5-14.5) % Plt Count 177 (130-400) K/uL MPV 10.5 H (7.4-10.4) fL Immature Gran % (Auto) 0.3 % Neut % (Auto) 79.1 % Lymph % (Auto) 9.6 % [place] % (Auto) 10.3 % Eos % (Auto) 0.6 % Baso % (Auto) 0.1 % Immature Gran # (Auto) 0.03 H (0.00-0.02) K/uL Neut # (Auto) 8.64 H (1.4-6.5) K/uL Lymph # (Auto) 1.05 L (1.2-3.4) K/uL [place] # (Auto) 1.13 H (0.11-0.59) K/uL Eos # (Auto) 0.07 (0-0.5) K/uL Baso # (Auto) 0.01 (0-0.2) K/uL Sodium 135 L (136-145) mmol/L Potassium 3.7 (3.5-5.1) mmol/L Chloride 102 (98-107) mmol/L Carbon Dioxide 28 (21-32) mmol/L Anion Gap 5.0 (3-11) BUN 14 (7-18) mg/dl Creatinine 1.03 (0.6-1.4) mg/dl Est Cr Clr Drug Dosing 107.5 ml/min Est GFR ( Amer) 98.4 Est GFR (Non-Af Amer) 84.9 BUN/Creatinine Ratio 13.2 (10-20) Glucose 100 H (70-99) mg/dl Lactate 1.7 (0.4-2.0) mmol/L Calcium 8.3 L (8.5-10.1) mg/dl Total Bilirubin 1.9 H D (0.2-1) mg/dl Direct Bilirubin 0.4 H (0-0.2) mg/dl AST 14 L (15-37) U/L ALT 24 (12-78) U/L Alkaline Phosphatase 60 (45-117) U/L Troponin I < 0.015 (0-0.045) ng/ml Total Protein 7.0 (6.4-8.2) gm/dl Albumin 3.4 (3.4-5.0) gm/dl Lipase 509 H (73-393) U/L Imaging Data Attestation: I personally reviewed and interpreted this imaging study as follows: Radiologist's Impression: CT abd pelvis IV con only FINDINGS: Learning Engineer topogram: Vasectomy clips noted. Lung bases: Normal heart size. No pericardial or pleural effusion. Minimal dependent changes likely atelectasis. Liver: Normal morphology. Few hypodense lesions likely hepatic cysts or hemangiomas. Patent hepatic vasculature. Biliary: No intrahepatic or extrahepatic biliary ductal dilatation. Normal gallbladder. Pancreas: Peripancreatic fat stranding along the pancreatic tail with small to moderate fluid along the dorsum of the pancreatic tail tracking along the left anterior pararenal space. This tracks to the medial aspect of the spleen. Normal enhancement of the pancreatic parenchyma. Spleen: Normal. Splenule noted. Adrenal glands: Normal. Kidneys and ureters: Normal. No hydronephrosis. Bladder: Normal. Pelvic organs: Prostate and seminal vesicles normal. Vasectomy clips noted. Bowel: Normal appendix. Small bowel loops in the central and left mid abdomen containing feces. Mild distention measuring up to 3.4 cm in diameter. No convincing evidence of a transition point to suggest obstruction. Peritoneal cavity: No free fluid or intraperitoneal gas. Retroperitoneal fluid in the left anterior pararenal space as mentioned. Lymph nodes: No enlarged lymph nodes in the abdomen or pelvis. Vasculature: Aorta and IVC patent and normal in caliber. Abdominal wall: Normal. Musculoskeletal: Degenerative changes of the spine. IMPRESSION: 1. Interstitial edematous pancreatitis with acute peripancreatic fluid in the left anterior pararenal space. No evidence of necrosis. 2. Feces within mildly distended small bowel loops in the central and left mid abdomen. No convincing evidence of obstruction. This may relate to delayed transit in the setting of ileus reactive to the presence of pancreatitis. Low- grade bowel obstruction or enteritis are considered much less likely. Radiographic follow-up to be considered. Blood Pressure Blood Pressure Findings: Normal blood pressure Blood Pressure Disposition: did not require urgent referral MDM Narrative The patient is a 49-year-old male who presents today complaining of epigastric abdominal pain patient was seen here earlier today. At that time, patient was thought to have some mild pancreatitis. Patient is febrile on arrival to the emergency department. Labs revealed a leukocytosis of 10.93, no anemia or conc erning electrolyte abnormalities. Patient's bilirubin is elevated at 1.9, LFTs otherwise within normal limits. Lipase has decreased from prior but is elevated at 509. CT of the abdomen/pelvis was performed and showed evidence of pancreatitis, no evidence of necrosis. There were some mildly distended small bowel loops suggestive of a possible reactive ileus. Patient was given IV fluids and pain medication in the emergency department and case was discussed with the [facility] service who will evaluate the patient for further care. Impression & Plan Acute pancreatitis Discharge Plan Visit Data *Final* Discharge Date/Time: 08/30/19 01:10 Chief Complaint: Abdominal Pain Stated Complaint: PAIN IN STOMACH ED Provider: Emanuel Borrego ED Midlevel Provider: Isabella Church Discharge Problem: Acute pancreatitis Patient Disposition: Admitted As Inpatient Discharge Instructions Interventions: ED Discharge Assessment Last Done: 08/30/19 01:10 Discharge Problem: Acute pancreatitis Qualifiers: Pancreatitis type: unspecified pancreatitis type Acute pancreatitis complication: no infection or necrosis Qualified Code(s): K85.90 - Acute pancreatitis without necrosis or infection, unspecified
[2019-08-29 22:31] LABS: Basophils # (auto) 0.01 K/uL (0-0.2); Basophils % (auto) 0.1 %; Eosinophils # (auto) 0.07 K/uL (0-0.5); Eosinophils % (auto) 0.6 %; Hematocrit (blood only) 45.2 % (42-52); Hemoglobin 15.9 g/dL (14.0-18.0); Immature Granulocytes # (auto) 0.03 K/uL (0.00-0.02); Immature Granulocytes % (auto) 0.3 %; Lymphocytes # (auto) 1.05 K/uL (1.2-3.4); Lymphocytes % (auto) 9.6 %; Mean Corpuscular Hemoglobin 31.4 pg (25-34); Mean Corpuscular Hgb Conc 35.2 g/dL (32-36); Mean Corpuscular Volume 89.2 fL (80-100); Mean Platelet Volume 10.5 fL (7.4-10.4); Monocytes # (auto) 1.13 K/uL (0.11-0.59); Monocytes % (auto) 10.3 %; Neutrophils # (auto) 8.64 K/uL (1.4-6.5); Neutrophils % (auto) 79.1 %; Platelet Count 177 K/uL (130-400); RDW Coefficient of Variation 12.7 % (11.5-14.5); RDW Standard Deviation 41.1 fL (36.4-46.3); Red Blood Count 5.07 M/uL (4.7-6.1); White Blood Count 10.93 K/uL (4.8-10.8)
[2019-08-29] MEDS ORDERED: IOVERSOL 100ml IV PRN (22:43)
[2019-08-29 22:48] LABS: Alanine Aminotransferase 24 U/L (12-78); Albumin Level 3.4 gm/dl (3.4-5.0); Aspartate Aminotransferase 14 U/L (15-37); BUN Creatinine Ratio 13.2 (10-20); Bilirubin Direct 0.4 mg/dl (0-0.2); Blood Urea Nitrogen 14 mg/dl (7-18); Calcium 8.3 mg/dl (8.5-10.1); Carbon Dioxide 28 mmol/L (21-32); Chloride 102 mmol/L (98-107); Creatinine Clr Calc Pharmacy 107.5 ml/min; Est GFR (African American) 98.4; Est GFR (Non-African American) 84.9; Glucose 100 mg/dl (70-99); Lipase 509 U/L (73-393); Potassium 3.7 mmol/L (3.5-5.1); Sodium 135 mmol/L (136-145)
[2019-08-29 22:54] LABS: Alkaline Phosphatase 60 U/L (45-117); Bilirubin,Total 1.9 mg/dl (0.2-1); Troponin I < 0.015 ng/ml (0-0.045)
--- NOTE | 2019-08-29 22:58 | CT Scan Report ---
CT abd pelvis IV con only CLINICAL HISTORY: 49 years-old Male presenting with epigastric pain, fever. TECHNIQUE: Multidetector CT of the abdomen and pelvis was performed after the administration of intra venous contrast. IV contrast: 94 mL of Optiray 320. One or more dose lowering techniques were used co nsistent with the principles of ALARA (as low as reasonably achievable), including automatic exposure control, mA or kV adjustment to individual patient size, and/or use of iterative reconstruction. COMPARISON: Right upper quadrant ultrasound performed earlier the same day. CT DOSE (mGy.cm): The estimated cumulative dose is 781.04 mGy.cm. FINDINGS: Oxygen Therapy Technician topogram: Vasectomy clips noted. Lung bases: Normal heart size. No pericardial or pleural effusion. Minimal dependent changes likely a telectasis. Liver: Normal morphology. Few hypodense lesions likely hepatic cysts or hemangiomas. Patent hepatic v asculature. Biliary: No intrahepatic or extrahepatic biliary ductal dilatation. Normal gallbladder. Pancreas: Peripancreatic fat stranding along the pancreatic tail with small to moderate fluid along t he dorsum of the pancreatic tail tracking along the left anterior pararenal space. This tracks to the medial aspect of the spleen. Normal enhancement of the pancreatic parenchyma. Spleen: Normal. Splenule noted. Adrenal glands: Normal. Kidneys and ureters: Normal. No hydronephrosis. Bladder: Normal. Pelvic organs: Prostate and seminal vesicles normal. Vasectomy clips noted. Bowel: Normal appendix. Small bowel loops in the central and left mid abdomen containing feces. Mild distention measuring up to 3.4 cm in diameter. No convincing evidence of a transition point to sugges t obstruction. Peritoneal cavity: No free fluid or intraperitoneal gas. Retroperitoneal fluid in the left anterior p ararenal space as mentioned. Lymph nodes: No enlarged lymph nodes in the abdomen or pelvis. Vasculature: Aorta and IVC patent and normal in caliber. Abdominal wall: Normal. Musculoskeletal: Degenerative changes of the spine. IMPRESSION: 1. Interstitial edematous pancreatitis with acute peripancreatic fluid in the left anterior pararena l space. No evidence of necrosis. 2. Feces within mildly distended small bowel loops in the central and left mid abdomen. No convincin g evidence of obstruction. This may relate to delayed transit in the setting of ileus reactive to the presence of pancreatitis. Low-grade bowel obstruction or enteritis are considered much less likely. Radiographic follow-up to be considered. ACT 112: Negative or not required by law. Electronically signed by: Eddie Gooden M.D. 08/29/2019 10:56 PM
[2019-08-30] MEDS ORDERED: HYDROmorphone INJ 0.5 MG/0.5 ML SYR IV STA (00:12)
--- NOTE | 2019-08-30 00:14 | History & Physical Report ---
Date of Service August 30, 2019 Assessment & Plan (1) Pancreatitis: Pt is a 49yo with a PMHx significant for lumbar radiculopathy who presents with acute pancreatitis. Acute Pancreatitis -Pt with unrelenting epigastric pain, episodes of N/V, anorexia -Lipase elevated to 927 this AM, 509 on return visit -CT abd/pelvis showed "interstitial edematous peripancreatitis with acute pancreatic fluid in left anterior pararenal space, no evidence of necrosis." No noted intra or extrahepatic biliary ductal dilatation. Distended small bowel loops also noted. -Gallbladder US with no cholelithiasis or biliary ductal dilatation noted -pt denies excessive alcohol use, No Hx of gallstones or hypercalcemia or hypertriglyceridemia -will treat with NSS @ 200 -will make NPO -Dialudid 1mg q2h PRN for pain, IV zofran 4mg q6h for N/V -MRCP ordered -AM labs: CMP, CBC, lipase, lipid panel for triglyceride level Fever -Pt with elevated temp of 38.3 on admission -Denies cough, SOB, chest tightness, diarrhea, dysuria, open wounds. -No recent travel or close COVID contacts. 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 -Fever likely secondary to inflammatory process associated with pancreatitis -Chest XR does note a "minimal R basilar opacity" likely secondary to atelectasis -Pending ED orders: UA, blood cultures -will hold off on empiric abx as fever likely secondary to acute inflammatory process Lumbar radiculopathy -holding home PO oxycodone-acetaminophen -continue Dilaudid 1mg q2h as above for pain FEN/GI: NSS@200cc/hr, NPO DVT prophylaxis: Lovenox 40mg SQ CODE STATUS: Full code Dispo: Med Surg History of Present Illness Primary Care Provider: SCOTT Garcia Pt is a 49yo with a PMHx significant for lumbar radiculopathy who presents with fever and acute pancreatitis. Pt states his symptoms started 2 days ago in the epigastrium. Described it as a"ball of pain", burning and sharp with no radiation, associated with N/V and decreased appetite. Last meal was 2 days ago. States he rarely uses alcohol, last drink was 3 weeks ago and was a glass of wine with his . No Hx of gallstones, or hypertriglyceridemia or hypercalcemia. Did not have fevers until this last visit to the ED. Denies any cough, SOB or chest tightness. Denies any recent travel, or known COVID positive contacts. 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 PMHx: lumbar and cervical radiculopathy PSHx: 3 knee surgeries, shoulder surgeries in both shoulders, C4, C5, C6 surgeries done by Dr. Hawkins and removal of nasal polyps Meds: As below Allergies: Cipro and morphine SH: Never smoker, rare alcohol use, no recreational drug use. Lives at home with and 2 children who are not sick currently. ED Course: Dilaudid 1mg, pending UA and blood cultures Allergies Allergy/AdvReac Type Severity Reaction Status Date / Time Cipro Allergy Unknown SEVERLY ILL Unverified 08/31/14 20:27 ciprofloxacin Allergy Unknown SEVERLY ILL Unverified 08/29/19 10:55 morphine Allergy Unknown HIVES Verified 08/29/19 22:05 Quinolones Allergy Unknown Verified 08/29/19 10:55 Home Medications Home Medications Medication Instructions Recorded Confirmed Type ondansetron 4 mg PO Q6 PRN #14 tab 08/29/19 08/29/19 Rx oxycodone-acetaminophen 1 tab PO Q8H PRN 08/29/19 08/29/19 History Past Med/Surg History Medical History Cervical stenosis of spinal canal (Acute 06/09/14) GERD (gastroesophageal reflux disease) (Chronic) Surgical History H/O arthroscopy H/O nasal septoplasty H/O sinus surgery History of neck surgery Social History Preferred Language: Tamazight Communication Ability: Effective Visual Impairment: No Limitations Hearing Ability: Normal Mushroom Grower Required: No Beliefs That Will Affect Care: None marital status: Current Living Situation: Spouse Current Living Situation Comment: current occupational status: employed current occupation: [employer] Other Information That Helps Us Care for You: No Feels Safe at Home: Yes Safety Concerns: Feels Safe At This Time Smoking Status: Never smoker Do You Dip or Chew Tobacco: No ; Second Hand Exposure: No ; Tobacco Cessation Education Requested by Patient: No Hx Alcohol Use: No Hx Substance Use: No Review of Systems Constitutional: + fever, + fatigue and + anorexia; no chills and no sweats Ear, Nose, Mouth, Throat: no nasal congestion and no sore throat Respiratory: no cough and no dyspnea No chest tightness Cardiovascular: no chest pain and no dyspnea Gastrointestinal: + abdominal pain, + nausea and + vomiting; no constipation, no diarrhea/loose stools and no blood in stools Genitourinary: no dysuria Musculoskeletal: + back pain Integumentary: no rash and no lesions Neurologic: no tingling, no numbness and no headache(s) Endocrine: + fatigue Physical Exam Physical Exam: General: Alert, oriented. Skin: No noted rashes or bruises Psych: Appropriate mood and affect Neuro: No gross deficits HEENT: NC/AT, mask on face Chest: Nontender to palpation. CV: RRR, Normal s1, s2. No murmurs appreciated Resp: Breath sounds clear bilaterally, no increased effort of breathing. No crackles/rhonchi/rales. Abdomen: Soft, tender in epigastrium. No guarding. No organomegaly appreciated. Extremities: No edema in lower extremities bilaterally. Results & Data Results & Data ([facility]) Vital Signs (Past 12 Hours) Vital Signs Temp Pulse Pulse Resp BP BP Pulse Ox 08/29/19 23:23 74 18 130/74 94 08/29/19 21:32 38.3 C H 73 20 156/67 H 94 Supervising Physician Co-Signing Physician Notes Patient seen and examined, chart reviewed, case discussed with Dr. Landeros and I agree with her assessment and plan as documented above. Briefly, patient is a 49yo C male presenting with acute pancreatitis. He was seen in the ER earlier today and discharged home with pain medication. He returns this evening with worsening pain. On exam he is afebrile, HD stable, NAD but in mild discomfort Skin - warm, dry, intact, no icterus/jaundice HEENT - NC/AT, PERRL, EOMI Heart - +S1, S2, regular, no m/r/g Lungs - CTA Abd - +BS, soft, +tenderness in epigastric region with voluntary guarding Ext - No edema Labs and images reviewed. Significant for WBC=10.93, Ca=8.3, Tbili=1.9 and Dbili=0.4, AP WNL. Lipase = 509 (decreased from [address] Abd with interstitial edematous pancreatitis with acute peripancreatic fluid in the left anterior pararenal space. No necrosis. Feces within mildly distended small bowel loops, ?ileus No intrahepatic or extrahepatic biliary ductal dilation. Normal gallgladder GB US with no gallstones Assessment/Plan: 49yo C male with acute pancreatitis -Admit to medical floor -NPO, aggressive IVF, pain and nausea control -Repeat LFTs in AM -Check MRCP -Remainder of plan as above Resident Activity Tracking Resident Involvement: Resident Care Provided Care Provided: Adult Hospital Medicine
[2019-08-30] MEDS: SODIUM CHLORIDE 0.9% 1000ML 1,000 ML IV SCH ×5 (01:48→22:15)
--- NOTE | 2019-08-30 02:56 | Billing Data ---
Date of Service August 30, 2019 Coding Level of Care Code 05042 Initial Inpt Care Lvl 2
[2019-08-30 05:16] LABS: Eosinophils # (auto) 0.07 K/uL (0-0.5); Eosinophils % (auto) 0.6 %; Hematocrit (blood only) 42.1 % (42-52); Hemoglobin 14.4 g/dL (14.0-18.0); Immature Granulocytes # (auto) 0.03 K/uL (0.00-0.02); Immature Granulocytes % (auto) 0.2 %; Lymphocytes # (auto) 1.15 K/uL (1.2-3.4); Lymphocytes % (auto) 9.6 %; Mean Corpuscular Hemoglobin 30.7 pg (25-34); Mean Corpuscular Hgb Conc 34.2 g/dL (32-36); Mean Corpuscular Volume 89.8 fL (80-100); Mean Platelet Volume 10.6 fL (7.4-10.4); Monocytes # (auto) 1.24 K/uL (0.11-0.59); Monocytes % (auto) 10.3 %; Neutrophils # (auto) 9.52 K/uL (1.4-6.5); Neutrophils % (auto) 79.3 %; Platelet Count 155 K/uL (130-400); RDW Coefficient of Variation 12.7 % (11.5-14.5); RDW Standard Deviation 41.5 fL (36.4-46.3); Red Blood Count 4.69 M/uL (4.7-6.1); White Blood Count 12.01 K/uL (4.8-10.8)
[2019-08-30 05:25] LABS: INR 1.2 (0.9-1.1); Prothrombin Time 12.4 Seconds (9.0-12.0)
[2019-08-30 05:53] LABS: Albumin Globulin Ratio 0.9 (0.9-2); Albumin Level 2.7 gm/dl (3.4-5.0); BUN Creatinine Ratio 11.6 (10-20); Bilirubin,Total 1.4 mg/dl (0.2-1); Calcium 7.9 mg/dl (8.5-10.1); Creatinine Clr Calc Pharmacy 107.5 ml/min; Est GFR (African American) 98.4; Est GFR (Non-African American) 84.9; Globulin 3.1 gm/dl (2.5-4.0); Total Protein 5.8 gm/dl (6.4-8.2)
[2019-08-30 06:37] LABS: Potassium 4.4 mmol/L (3.5-5.1)
[2019-08-30 07:39] LABS: Appearance Urine Clear (Clear); Bilirubin Urine Negative (Negative); Blood Urine Negative (Negative); Color Urine Dark Yellow; Glucose Urine UA Negative (Negative); Ketones Urine Trace (Negative); Leukocyte Esterase Urine Negative (Negative); Nitrite Urine Negative (Negative); Protein Urine Negative (Negative); Specific Gravity Urine 1.035 (1.000-1.030); Urobilinogen Urine Negative (Negative); pH Urine 5.5 (4.5-7.5)
[2019-08-30] MEDS: ENOXAPARIN INJ 40 MG/0.4 ML SYR SQ SCH (09:02)
[2019-08-30] MEDS: HYDROmorphone INJ 1 MG/ML SYRINGE IV PRN ×3 (09:05→21:49)
--- NOTE | 2019-08-30 09:44 | Hospitalist Progress Note ---
Date of Service August 30, 2019 Assessment & Plan (1) Pancreatitis: -Pt with unrelenting epigastric pain, episodes of N/V, anorexia -Lipase elevated to 927 this AM, 509 on return visit -CT abd/pelvis showed "interstitial edematous peripancreatitis with acute pancreatic fluid in left anterior pararenal space, no evidence of necrosis." No noted intra or extrahepatic biliary ductal dilatation. Distended small bowel loops also noted. -Gallbladder US with no cholelithiasis or biliary ductal dilatation noted -pt denies excessive alcohol use, No Hx of gallstones or hypercalcemia or hypertriglyceridemia IVF, NPO -Dialudid 1mg q2h PRN for pain, IV zofran 4mg q6h for N/V -MRCP pending TG level WNL Likely related to decadron use (2) Fever: -Pt with elevated temp of 38.3 on admission, none since that time and no tylenol/ibuprofen use -Denies cough, SOB, chest tightness, diarrhea, dysuria, open wounds. -No recent travel or close COVID contacts. 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 -Fever likely secondary to inflammatory process associated with pancreatitis -Chest XR does note a "minimal R basilar opacity" likely secondary to atelectasis -Pending ED orders: UA, blood cultures -will hold off on empiric abx as fever likely secondary to acute inflammatory process (3) Lumbar radiculopathy: -holding home PO oxycodone-acetaminophen -continue Dilaudid 1mg q2h as above for pain Had been on decadron taper since d/c, holding for now as possibly caused pancreatitis Pt was scheduled for MRI on 08/30, will need to reschedule at d/c (4) GERD (gastroesophageal reflux disease): PRN as at home (5) DVT prophylaxis: Lovenox for DVT proph Of note, H&P times for just after midnight on 08/29, however based on time of H&P and orders, pt was seen on 08/28. Admission and Anticipated Discharge Date Admission Date: August 30, 2019 Subjective Pt states he is still having abd pain, but it is better than [employer] overall. Some bloating, but better. Has passed some stool, but not much the last few days as he has not eaten anything since . No n/v. Pt denies fever, SOB, chest pain, LE pain or swelling. States he is still having L LE numbness, but that his LBP is much better. He did have an appt with Dr. Hawkins on Saturday and was scheduled for an MRI tomorrow. Review of Systems Review of Systems: Pertinent positives and negatives reviewed in HPI--all others negative Physical Exam Constitutional: WD/WN, vitals as above Eyes: normal visual ceron by confrontation and + anicteric sclerae Neck: normal visual inspection and trachea midline Respiratory: normal respiratory effort, lungs clear to auscultation Cardiovascular: Rate/Rhythm: regular rate and regular rhythm Gastrointestinal (Abdomen): Inspection/Auscultation: + abdomen distended Percussion/Palpation: + abdomen tender (diffuse) and abdomen soft Musculoskeletal: Head/Neck/Chest: normocephalic and head atraumatic negative for edema, peripheral pulses intact Skin: no rashes, warm and dry Neurologic: awake; not confused Speech / Cognition: normal speech Psychiatric: A+Ox3, euthymic affect Results & Data Results & Data ([facility]) Vital Signs (Past 12 Hours) Vital Signs Temp Pulse Resp BP Pulse Ox 08/30/19 07:20 37.0 C 72 20 121/74 94 08/30/19 01:22 37.0 C 71 16 124/75 94 08/29/19 23:23 74 18 130/74 94 PG Care Time/CCT Total # of Minutes Spent Total Time Spent with Patient: Total time spent is greater than 50% in coordination of care (as documented) at patient's floor/unit and/or counseling patient: Coding Level of Care Code 08050 Subseq Hosp Care Lvl 3 Diagnoses Pancreatitis K85.90 Fever R50.9 Lumbar radiculopathy M54.16 GERD (gastroesophageal reflux disease) K21.9 DVT prophylaxis Z29.9
--- NOTE | 2019-08-30 10:03 | Magnetic Resonance Report ---
MRCP CLINICAL HISTORY: Abdominal pain. Evaluate for gallstone obstruction/ductal dilation. TECHNIQUE: Utilizing a 1.5 Odalys magnet and dedicated coil, multiplanar, multiecho imaging of the [facility] was performed utilizing heavily T2 weighted pulsing sequences without IV contrast. COMPARISON STUDY: CT of the abdomen and pelvis and right upper quadrant ultrasound August 29, 2019. FINDINGS: No intra or extrahepatic biliary ductal dilatation is present. No common bile duct calculi are identified although sensitivity for detection of small calculi is diminished on this exam. No gal lstones are noted. There is trace pericholecystic fluid. The course and caliber of the main pancreati c duct is normal. Mild to moderate peripancreatic infiltration and fluid extending into the left ante rior pararenal space is again noted, as shown on CT. There is no peripancreatic fluid collection. Not e is made of a 1.9 cm T2 hyperintense lateral segment lesion and a 1.4 cm segment 6 T2 hyperintense h epatic lesion. These are unchanged since chest CT of August 31, 2014 and favor hemangiomas. No addition al hepatic lesions are identified on this unenhanced examination. Unenhanced images of the spleen, ad renal glands are unremarkable. Mild small bowel dilatation is noted, as shown on CT of August 29, 2019. IMPRESSION: 1. No biliary ductal dilatation. No common bile duct calculi identified. 2. Peripancreatic infiltration and fluid consistent with acute pancreatitis. 3. Persistent small bowel dilatation. This is better depicted on CT of August 29, 2019. An ileus is fav ored secondary to acute pancreatitis. ACT 112: Negative or not required by law. Electronically signed by: Travis Keene M.D. 08/30/2019 10:02 AM
--- NOTE | 2019-08-30 10:10 | Electrocardiogram Report ---
Test Reason : Blood Pressure : / mmHG Vent. Rate : 075 BPM Atrial Rate : 075 BPM P-R Int : 136 ms QRS Dur : 080 ms QT Int : 360 ms P-R-T Axes : 059 013 -13 degrees QTc Int : 402 ms Normal sinus rhythm Normal ECG When compared with ECG of 29-AUG-2019 08:55, (unconfirmed) No significant change was found Confirmed by Rene Toney ([id number]) on 08/30/2019 10:09:56 AM Referred By: REFERRED SELF Confirmed By:Rene Toney
[2019-08-30] MEDS: ONDANSETRON INJ 2 MG/ML 2 ML VIAL IV PRN ×2 (16:36→21:49)
[2019-08-31] MEDS: SODIUM CHLORIDE 0.9% 1000ML 1,000 ML IV SCH ×5 (03:07→22:27)
[2019-08-31] MEDS: HYDROmorphone INJ 1 MG/ML SYRINGE IV PRN ×2 (03:10→23:52)
[2019-08-31] MEDS: ONDANSETRON INJ 2 MG/ML 2 ML VIAL IV PRN ×2 (03:10→23:52)
[2019-08-31 04:46] LABS: Basophils # (auto) 0.01 K/uL (0-0.2); Basophils % (auto) 0.1 %; Eosinophils # (auto) 0.08 K/uL (0-0.5); Eosinophils % (auto) 0.9 %; Hematocrit (blood only) 38.2 % (42-52); Hemoglobin 13.1 g/dL (14.0-18.0); Immature Granulocytes # (auto) 0.03 K/uL (0.00-0.02); Immature Granulocytes % (auto) 0.3 %; Lymphocytes # (auto) 0.73 K/uL (1.2-3.4); Lymphocytes % (auto) 7.9 %; Mean Corpuscular Hgb Conc 34.3 g/dL (32-36); Mean Corpuscular Volume 90.3 fL (80-100); Mean Platelet Volume 10.2 fL (7.4-10.4); Monocytes # (auto) 0.68 K/uL (0.11-0.59); Monocytes % (auto) 7.3 %; Neutrophils # (auto) 7.75 K/uL (1.4-6.5); Neutrophils % (auto) 83.5 %; Platelet Count 143 K/uL (130-400); RDW Coefficient of Variation 12.6 % (11.5-14.5); RDW Standard Deviation 41.6 fL (36.4-46.3); Red Blood Count 4.23 M/uL (4.7-6.1); White Blood Count 9.28 K/uL (4.8-10.8)
[2019-08-31 05:15] LABS: Albumin Level 2.4 gm/dl (3.4-5.0); Bilirubin,Total 1.2 mg/dl (0.2-1); Calcium 7.8 mg/dl (8.5-10.1); Creatinine Clr Calc Pharmacy 105.5 ml/min; Est GFR (African American) 96.1; Potassium 4.3 mmol/L (3.5-5.1)
[2019-08-31 05:20] LABS: Albumin Globulin Ratio 0.8 (0.9-2); Globulin 3.2 gm/dl (2.5-4.0); Total Protein 5.6 gm/dl (6.4-8.2)
[2019-08-31] MEDS: ENOXAPARIN INJ 40 MG/0.4 ML SYR SQ SCH (08:11)
--- NOTE | 2019-08-31 13:20 | Hospitalist Progress Note ---
Date of Service August 31, 2019 Assessment & Plan (1) Pancreatitis: -Pt with unrelenting epigastric pain, episodes of N/V, anorexia -Lipase elevated to 927 this AM, 509 on return visit -CT abd/pelvis showed "interstitial edematous peripancreatitis with acute pancreatic fluid in left anterior pararenal space, no evidence of necrosis." No noted intra or extrahepatic biliary ductal dilatation. Distended small bowel loops also noted. -Gallbladder US with no cholelithiasis or biliary ductal dilatation noted -pt denies excessive alcohol use, No Hx of gallstones or hypercalcemia or hypertriglyceridemia IVF, NPO -Dialudid 1mg q2h PRN for pain, IV zofran 4mg q6h for N/V -MRCP neg other than acute pancreatitis TG level WNL Likely related to decadron use Overall improving. If no further pain or nausea by this afternoon, will attempt trial of clears. (2) Fever: -Pt with elevated temp of 38.3 on admission, none since that time and no tylenol/ibuprofen use -Denies cough, SOB, chest tightness, diarrhea, dysuria, open wounds. -No recent travel or close COVID contacts. 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 -Fever likely secondary to inflammatory process associated with pancreatitis -Chest XR does note a "minimal R basilar opacity" likely secondary to atelectasis -Pending ED orders: UA, blood cultures -will hold off on empiric abx as fever likely secondary to acute inflammatory process (3) Lumbar radiculopathy: -holding home PO oxycodone-acetaminophen -continue Dilaudid 1mg q2h as above for pain Had been on decadron taper since d/c, holding for now as possibly caused pancreatitis Pt was scheduled for MRI on 08/30, will need to reschedule at d/c (4) GERD (gastroesophageal reflux disease): PRN as at home (5) DVT prophylaxis: Lovenox for DVT proph Admission and Anticipated Discharge Date Admission Date: August 30, 2019 Subjective Pt's abd pain is much better. He did require IV pain medication around 3a, but states he is doing better this AM. Some mild nausea at times, but no emesis. He had two bowel movements yesterday. Pt denies fever, SOB, chest pain, LE pain or swelling. States he is still having L LE numbness, but that his LBP is much better. Review of Systems Review of Systems: Pertinent positives and negatives reviewed in HPI--all others negative Physical Exam Constitutional: WD/WN, vitals as above Eyes: normal visual ceron by confrontation and + anicteric sclerae Neck: normal visual inspection and trachea midline Respiratory: normal respiratory effort, lungs clear to auscultation Cardiovascular: Rate/Rhythm: regular rate and regular rhythm Gastrointestinal (Abdomen): Percussion/Palpation: + abdomen tender (mild and improved from yesterday) and abdomen soft Musculoskeletal: Head/Neck/Chest: normocephalic and head atraumatic Skin: no rashes, warm and dry Neurologic: awake; not confused Speech / Cognition: normal speech Psychiatric: A+Ox3, euthymic affect Results & Data Results & Data ([facility]) Vital Signs (Past 12 Hours) Vital Signs Temp Pulse Resp BP Pulse Ox 08/31/19 07:04 36.7 C 70 18 144/75 H 95 PG Care Time/CCT Total # of Minutes Spent Total Time Spent with Patient: Total time spent is greater than 50% in coordination of care (as documented) at patient's floor/unit and/or counseling patient: Coding Level of Care Code 99010 Subseq Hosp Care Lvl 3 Diagnoses Pancreatitis K85.90 Fever R50.9 Lumbar radiculopathy M54.16 GERD (gastroesophageal reflux disease) K21.9 DVT prophylaxis Z29.9
[2019-09-01] MEDS: SODIUM CHLORIDE 0.9% 1000ML 1,000 ML IV SCH ×4 (03:28→19:18)
[2019-09-01 05:18] LABS: Basophils # (auto) 0.01 K/uL (0-0.2); Basophils % (auto) 0.2 %; Eosinophils # (auto) 0.09 K/uL (0-0.5); Eosinophils % (auto) 1.7 %; Hematocrit (blood only) 36.6 % (42-52); Hemoglobin 12.6 g/dL (14.0-18.0); Immature Granulocytes # (auto) 0.01 K/uL (0.00-0.02); Immature Granulocytes % (auto) 0.2 %; Lymphocytes # (auto) 1.04 K/uL (1.2-3.4); Lymphocytes % (auto) 19.2 %; Mean Corpuscular Hemoglobin 30.9 pg (25-34); Mean Corpuscular Hgb Conc 34.4 g/dL (32-36); Mean Corpuscular Volume 89.7 fL (80-100); Mean Platelet Volume 10.4 fL (7.4-10.4); Monocytes % (auto) 9.2 %; Neutrophils # (auto) 3.77 K/uL (1.4-6.5); Neutrophils % (auto) 69.5 %; Platelet Count 173 K/uL (130-400); RDW Coefficient of Variation 12.4 % (11.5-14.5); RDW Standard Deviation 40.4 fL (36.4-46.3); Red Blood Count 4.08 M/uL (4.7-6.1); White Blood Count 5.42 K/uL (4.8-10.8)
[2019-09-01] MEDS ORDERED: ACETAMINOPHEN 1,000 MG/100 ML VIAL IV STA (05:59)
[2019-09-01 06:03] LABS: Albumin Level 2.2 gm/dl (3.4-5.0); BUN Creatinine Ratio 9.2 (10-20); Calcium 8.2 mg/dl (8.5-10.1); Creatinine Clr Calc Pharmacy 124.4 ml/min; Est GFR (African American) 116.4; Est GFR (Non-African American) 100.4
[2019-09-01 06:06] LABS: Albumin Globulin Ratio 0.6 (0.9-2); Bilirubin,Total 0.8 mg/dl (0.2-1); Globulin 3.5 gm/dl (2.5-4.0); Total Protein 5.7 gm/dl (6.4-8.2)
--- NOTE | 2019-09-01 06:14 | Communication Note ---
Date of Service: September 01, 2019 at 0554, received Qliq from nursing stating that patient had headache without any additional symptoms, but only available pain medication was Dilaudid. As patient had some mild bloating and abdominal pain after starting clear liquids overnight, ordered one time dose of IV Acetaminophen 1000mg.
[2019-09-01] MEDS ORDERED: KETOROLAC 30 MG/ML VIAL IV ONE (08:30)
[2019-09-01] MEDS: ENOXAPARIN INJ 40 MG/0.4 ML SYR SQ SCH (08:43)
[2019-09-01] MEDS: HYDROmorphone INJ 1 MG/ML SYRINGE IV PRN (09:30)
[2019-09-01] MEDS: ONDANSETRON INJ 2 MG/ML 2 ML VIAL IV PRN (09:30)
--- NOTE | 2019-09-01 12:35 | Hospitalist Progress Note ---
Date of Service September 01, 2019 Assessment & Plan (1) Pancreatitis: -Pt with unrelenting epigastric pain, episodes of N/V, anorexia -Lipase elevated to 927 this AM, 509 on return visit -CT abd/pelvis showed "interstitial edematous peripancreatitis with acute pancreatic fluid in left anterior pararenal space, no evidence of necrosis." No noted intra or extrahepatic biliary ductal dilatation. Distended small bowel loops also noted. -Gallbladder US with no cholelithiasis or biliary ductal dilatation noted -pt denies excessive alcohol use, No Hx of gallstones or hypercalcemia or hypertriglyceridemia IVF, NPO -Dialudid 1mg q2h PRN for pain, IV zofran 4mg q6h for N/V -MRCP neg other than acute pancreatitis TG level WNL Likely related to decadron use Pt did have pain requiring IV medications a few hours s/p PO last night, but much better today. If no further pain or nausea by this afternoon, will attempt trial of clears for dinner again. (2) Fever: -Pt with elevated temp of 38.3 on admission, none since that time and no tylenol/ibuprofen use -Denies cough, SOB, chest tightness, diarrhea, dysuria, open wounds. -No recent travel or close COVID contacts. 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 -Fever likely secondary to inflammatory process associated with pancreatitis -Chest XR does note a "minimal R basilar opacity" likely secondary to atelectasis -Pending ED orders: UA, blood cultures -will hold off on empiric abx as fever likely secondary to acute inflammatory process (3) Lumbar radiculopathy: -holding home PO oxycodone-acetaminophen -continue Dilaudid 1mg q2h as above for pain Had been on decadron taper since d/c, holding for now as possibly caused pancr eatitis Pt was scheduled for MRI on 08/30, will need to reschedule at d/c (4) GERD (gastroesophageal reflux disease): PRN as at home (5) DVT prophylaxis: Lovenox for DVT proph Admission and Anticipated Discharge Date Admission Date: August 30, 2019 Subjective Pt felt well yesterday and was hungry, so trial of clears for dinner. He states he ate some and felt "like it was just sitting there". He did have some abd pain later in the night requiring dilaudid. He has had no abd pain or nausea since that time. In fact, he states he feels the best he has since this started from that standpoint. Pt did have a L sided stabbing headache this AM. No help with toradol, but dilaudid did improve. He is not generally one for headaches, but it is completely gone at this point. He states he is hungry now. Pt denies fever, SOB, chest pain, LE pain or swelling. States he is still having L LE numbness, minimal LBP. Review of Systems Review of Systems: Pertinent positives and negatives reviewed in HPI--all others negative Physical Exam Constitutional: WD/WN, vitals as above Eyes: normal visual ceron by confrontation and + anicteric sclerae Neck: normal visual inspection and trachea midline Respiratory: normal respiratory effort, lungs clear to auscultation Cardiovascular: Rate/Rhythm: regular rate and regular rhythm Gastrointestinal (Abdomen): Inspection/Auscultation: + abdomen distended Percussion/Palpation: + abdomen tender (mild and improved from yesterday) and abdomen soft Musculoskeletal: Head/Neck/Chest: normocephalic and head atraumatic Skin: no rashes, warm and dry Neurologic: awake; not confused Speech / Cognition: normal speech Psychiatric: A+Ox3, euthymic affect Results & Data Results & Data ([facility]) Vital Signs (Past 12 Hours) Vital Signs Temp Pulse Resp BP Pulse Ox 09/01/19 07:58 36.9 C 55 L 18 138/79 95 PG Care Time/CCT Total # of Minutes Spent Total Time Spent with Patient: Total time spent is greater than 50% in coordination of care (as documented) at patient's floor/unit and/or counseling patient: Coding Level of Care Code 52918 Subseq Hosp Care Lvl 3 Diagnoses Pancreatitis K85.90 Fever R50.9 Lumbar radiculopathy M54.16 GERD (gastroesophageal reflux disease) K21.9 DVT prophylaxis Z29.9
[2019-09-02] MEDS: SODIUM CHLORIDE 0.9% 1000ML 1,000 ML IV SCH ×4 (00:24→17:25)
--- NOTE | 2019-09-02 00:28 | Communication Note ---
Date of Service: September 02, 2019 Was notified that pt had a headache once more, behind his left eye. Occurred last night as well.Per nursing, pt states that it is only responsive to Dilaud id, not tylenol or Toradol. Was also notified that pt would like it addressed before getting any more pain medication. Brain MRI was ordered for further evaluation. 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
[2019-09-02] MEDS ORDERED: GADOBUTROL 30ML VIAL IV PRN (02:03)
[2019-09-02] MEDS: ONDANSETRON INJ 2 MG/ML 2 ML VIAL IV PRN (02:12)
[2019-09-02] MEDS: HYDROmorphone INJ 1 MG/ML SYRINGE IV PRN ×4 (02:12→12:28)
--- NOTE | 2019-09-02 06:28 | Magnetic Resonance Report ---
MRI OF THE BRAIN WITHOUT AND WITH IV CONTRAST CLINICAL HISTORY: headache behind left eye COMPARISON STUDY: 08/13/2016 TECHNIQUE: MRI of the brain was performed from the vertex to the skull base utilizing various T1 and T2 weighted sequences. Following the IV administration of 10.5 mL of Gadavist contrast, additional en hanced images were obtained. FINDINGS: Sagittal T1, axial diffusion, proton density and T2 weighted axial, coronal FLAIR, and pre and post a xial T1-weighted images were acquired. These were supplemented with post gadolinium coronal T1 weight ed images. No intra or extra-axial mass lesions are visualized. Axial diffusion-weighted images reveal no evidence of acute or subacute infarction. There is no evidence of ventricular dilatation. Proton density T2-weighted and FLAIR images reveal no significant intraparenchymal signal abnormaliti es. There are no abnormal flow voids. There is no evidence of pathologic enhancement. IMPRESSION: Normal MRI of the brain for age. ACT 112: Negative or not required by law. Electronically signed by: Sonido De La Paz M.D. 09/02/2019 6:26 AM
[2019-09-02] MEDS ORDERED: ONDANSETRON INJ 2 MG/ML 2 ML VIAL IV PRN (06:40)
[2019-09-02] MEDS: ENOXAPARIN INJ 40 MG/0.4 ML SYR SQ SCH (08:48)
[2019-09-02] MEDS ORDERED: ONDANSETRON INJ 2 MG/ML 2 ML VIAL IV ONE (12:22)
[2019-09-02] MEDS ORDERED: CALCIUM CARBONATE 500 MG CHEWABLE TAB PO PRN (16:16)
--- NOTE | 2019-09-02 18:07 | Discharge Summary ---
Date of Service September 02, 2019 Admission HPI Per Admitting Provider Pt is a 49yo with a PMHx significant for lumbar radiculopathy who presents with fever and acute pancreatitis. Pt states his symptoms started 2 days ago in the epigastrium. Described it as a"ball of pain", burning and sharp with no radiation, associated with N/V and decreased appetite. Last meal was 2 days ago. States he rarely uses alcohol, last drink was 3 weeks ago and was a glass of wine with his . No Hx of gallstones, or hypertriglyceridemia or hypercalcemia. Did not have fevers until this last visit to the ED. Denies any cough, SOB or chest tightness. Denies any recent travel, or known COVID positive contacts. 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 PMHx: lumbar and cervical radiculopathy PSHx: 3 knee surgeries, shoulder surgeries in both shoulders, C4, C5, C6 surgeries done by Dr. Hawkins and removal of nasal polyps Meds: As below Allergies: Cipro and morphine SH: Never smoker, rare alcohol use, no recreational drug use. Lives at home with and 2 children who are not sick currently. ED Course: Dilaudid 1mg, pending UA and blood cultures Principal Diagnosis Pt had another headache in the middle of the night. Same headache as yesterday, knife stabbing on the L side. It was not improved with diluadid as the headache yesterday was. MRI ordered that was neg. Pt had mild relief after clears for breakfast. He has started having nausea that he thinks is related to the headache. No emesis. He has had no return of abd pain. He states he has never had to go this long without eating "real" food. He thinks it is possible that the headache was due to not eating. Pt denies fever, SOB, chest pain, c/d, LE pain or swelling. Diet advanced to soft regular for lunch and dinner and headache is better. Tolerated without return of nausea or abd pain. He would like to go home. Discharge Exam Constitutional WD/WN, vitals as above Eyes normal visual ceron by confrontation and + anicteric sclerae Neck normal visual inspection and trachea midline Respiratory normal respiratory effort, lungs clear to auscultation Cardiovascular Rate/Rhythm: regular rate and regular rhythm Gastrointestinal (Abdomen) Inspection/Auscultation: + abdomen distended Percussion/Palpation: + abdomen tender (mild and improved from yesterday) and abdomen soft Musculoskeletal Head/Neck/Chest: normocephalic and head atraumatic Skin no rashes, warm and dry Neurologic awake; not confused Speech / Cognition: normal speech Psychiatric A+Ox3, euthymic affect Discharge Data Allergies Allergy/AdvReac Type Severity Reaction Status Date / Time Cipro Allergy Unknown SEVERLY ILL Unverified 08/31/14 20:27 ciprofloxacin Allergy Unknown SEVERLY ILL Unverified 08/29/19 10:55 morphine Allergy Unknown HIVES Verified 08/29/19 22:05 Quinolones Allergy Unknown Verified 08/29/19 10:55 Consultations 08/29/19 23:12 ED Decision to Admit Stat Ordered Studies 08/29/19 21:56 CT abd pelvis IV con only Stat 08/30/19 01:29 MR MRCP Routine 09/02/19 00:22 MR brain wo/w con Routine Hospital Course (1) Pancreatitis: -Pt admitting with unrelenting epigastric pain, episodes of N/V, anorexia -Lipase elevated to 927 this AM, 509 on return visit -CT abd/pelvis showed "interstitial edematous peripancreatitis with acute pancreatic fluid in left anterior pararenal space, no evidence of necrosis." No noted intra or extrahepatic biliary ductal dilatation. Distended small bowel loops also noted. -Gallbladder US with no cholelithiasis or biliary ductal dilatation noted -pt denies excessive alcohol use, No Hx of gallstones or hypercalcemia or hypertriglyceridemia Resolved with IVF, NPO -MRCP neg other than acute pancreatitis TG level WNL Likely related to decadron use (2) Fever: -Pt with elevated temp of 38.3 on admission, none since that time and no tylenol/ibuprofen use -Denies cough, SOB, chest tightness, diarrhea, dysuria, open wounds. -No recent travel or close COVID contacts. 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 -Fever likely secondary to inflammatory process associated with pancreatitis -Chest XR does note a "minimal R basilar opacity" likely secondary to atelectasis -Pending ED orders: UA, blood cultures -will hold off on empiric abx as fever likely secondary to acute inflammatory process (3) Headache: Sudden onset on AM of 08/31 with no improvement with toradol but did resolve with dilaudid Recurrance earlier AM on 09/01 without improvement with dilaudid MRI brain neg Did improve some with breakfast and further with a more substantial meal at lunch Possibly related to decreased PO status over several days (4) Lumbar radiculopathy: -holding home PO oxycodone-acetaminophen -continue Dilaudid 1mg q2h as above for pain Had been on decadron taper since d/c, holding for now as possibly caused pancreatitis Pt was scheduled for MRI on 08/30, will need to reschedule at d/c (5) GERD (gastroesophageal reflux disease): PRN as at home (6) DVT prophylaxis: Lovenox for DVT proph Total Time Total Time Spent Total Time Spent (In Minutes): >30 Total Time Includes: Examination of the Patient, Discharge Planning, Medication Reconciliation and Other Discharge Plan Discharge Items Patient Disposition: Home - Self-Care Reason For Visit: PANCREATITIS Discharge Diagnosis: pancreatitis Activity: Resume your previous activity Non-emergency contact: Primary Care Provider Call non-emergency contact if: you have any medication questions, your pain is not controlled and your pain is worsening Follow-up/Referrals: Omayra Adhikari CRNP [Primary Care Provider] - Diet: Regular Addtl Attending Provider Instructions: You should keep your diet simple to avoid overworking your pancreas for the next week or so. Carbs and high sugar foods in particular will activate your pancreas more than other types of food. Also, very fatty or greasy or fried foods as well. Pending Studies at Discharge: No Stand-Alone Forms: My [facility] [employer], Smoking Cessation Medications and DC Order Prescriptions: Continued ondansetron 4 mg tablet,disintegrating 4 mg PO Q6 PRN (Reason: nausea and vomiting) Qty: 14 RF: 0 oxycodone-acetaminophen 5-325 mg tablet 1 tab PO Q8H PRN (Reason: Pain) RF: 0 Discharge Orders: Discharge Order (Routine); Ordered 09/02/19 Ordered By: Myriam Glaser Admission Data Admit Date/Time: 08/30/19 00:00 Attending Provider: Myriam Glaser Admit Provider: Maddie Landeros Primary Care Provider: Omayra Adhikari Other Providers: Blanquita Ward Coding Level of Care Code D/C Day Management >30 mins Diagnoses Pancreatitis K85.90 Fever R50.9 Headache R51 Lumbar radiculopathy M54.16 GERD (gastroesophageal reflux disease) K21.9 DVT prophylaxis Z29.9
== END 2019-09-02 19:15 | disposition home or self-care (01) | DRG 440 ==
LOC: ED 21:28 → SUATTDRO 08-30 → 3E 08-30
DX: Z88.1 Allergy status to other antibiotic agents; R11.2 Nausea with vomiting, unspecified; Z88.8 Allergy status to other drugs, medicaments and biological substances; K85.90 Acute pancreatitis without necrosis or infection, unspecified; R51 Headache; R10.13 Epigastric pain; K21.9 Gastro-esophageal reflux disease without esophagitis; Z88.6 Allergy status to analgesic agent; M54.16 Radiculopathy, lumbar region

== ENCOUNTER 2021-05-08 10:26 | Inpatient (IN) ==
[2021-05-08] MEDS ORDERED: HYDROmorphone INJ 0.5 MG/0.5 ML SYR IV STA ×2 (10:57→14:54)
[2021-05-08] MEDS ORDERED: ONDANSETRON INJ 2 MG/ML 2 ML VIAL IV STA (10:57)
[2021-05-08] MEDS ORDERED: SODIUM CHLORIDE 0.9% 1000ML 1,000 ML IV SCH (11:00)
--- NOTE | 2021-05-08 11:01 | Emergency Department Note ---
History of Present Illness General Chief complaint: Abdominal Pain Stated complaint: ABD PAIN Time Seen by Provider: 05/08/21 10:42 History of Present Illness Maximum Pain Intensity: 6 This is a 51-year-old male that presents to the emergency department via private vehicle with complaints of "abdominal pain". Patient notes epigastric abdominal pain that began this past Saturday around noon time. He notes that it was shortly after receiving dexamethasone. He states that he was admitted about a year and a half ago for pancreatitis which he believes was from dexamethasone. The patient denies any chest pain or shortness of breath. The pain is worse with eating. The patient notes he has not had any food or drink today but states that when he attempts to eat or drink the pain increases from a 5/10 to severe. He denies any fevers or chills. In regard to his Covid symptoms he notes that he is much improved and no longer has any respiratory symptoms. No vomiting. No hemoptysis. No diarrhea. Patient points to the epigastric region as the current location of his pain. Patient notes that this feels identical to previous symptoms he had a year and a half ago when he had pancreatitis. Home Medications Medication Instructions Recorded Confirmed Type acetaminophen 500 mg tablet 500 mg PO Q6H PRN 05/04/21 05/08/21 History ibuprofen 200 mg tablet 600 mg PO Q6H PRN 05/04/21 05/08/21 History benzonatate 100 mg capsule 200 mg PO TID PRN #20 cap 05/06/21 05/08/21 Rx Allergies Allergy/AdvReac Type Severity Reaction Status Date / Time Cipro Allergy Unknown SEVERLY ILL Unverified 08/31/14 20:27 ciprofloxacin Allergy Unknown SEVERLY ILL Unverified 05/04/21 07:36 morphine Allergy Unknown HIVES Verified 05/04/21 07:36 Quinolones Allergy Unknown Verified 05/04/21 07:36 dexamethasone Allergy Unknown Unverified 05/08/21 11:25 Past Med/Surg History Medical History Cervical stenosis of spinal canal (06/09/14) GERD (gastroesophageal reflux disease) Surgical History H/O arthroscopy H/O nasal septoplasty H/O sinus surgery History of neck surgery Family History Other Breast cancer Diabetes Denies family history of Coronary heart disease Colorectal cancer Social History Smoking Status: Never smoker Second Hand Exposure: No; Hx Alcohol Use: No Hx Substance Use: No Preferred Language: Burundian Communication Ability: Effective Visual Impairment: No Limitations Hearing Ability: Normal Bottom Worker Required: No Beliefs That Will Affect Care: None marital status: Current Living Situation: Spouse Current Living Situation Comment: current occupational status: employed current occupation: [employer] Feels Safe at Home: Yes Assistive Devices: None Review of Systems A total of 10 systems reviewed and were otherwise negative Physical Exam Vital Signs Vital Signs - 24 hr 05/08/21 10:37 05/08/21 12:00 05/08/21 14:00 Temperature 36.5 C Temperature Source Oral Pulse Rate 75 58 L 68 Pulse Rate from SpO2 Sensor 57 L 68 Respiratory Rate 19 16 16 Blood Pressure 146/105 H 172/97 H 143/84 H Blood Pressure Mean 118 122 103 Pulse Oximetry 95 96 95 Oxygen Delivery Method Room Air Room Air Room Air Sepsis Recent Fever Within 48 Hours No Sepsis New/Unexplained Change in Mental Status N/A Sepsis Action Taken by Nursing No Action Required VITAL SIGNS - Vital signs and nursing notes were reviewed. Stable and afebrile. GENERAL - 51-year-old male appearing his stated age who is in no acute distress. Communicates well with provider and answers questions appropriately. SKIN - Without rashes. No meningeal or petechial rash. HEAD - NC/AT. EYES - Sclera anicteric. EARS - No deformities of external structures noted on gross examination bilaterally. NOSE - Midline and without cyanosis. No epistaxis or purulent drainage noted. MOUTH/OROPHARYNX - Without perioral cyanosis. NECK - Neck with FROM. LUNGS - Chest wall symmetric without accessory muscle use, intercostals retractions, or central cyanosis. Normal vesicular breath sounds CTA B/L. No wheezes, rales, or rhonchi appreciated. CARDIAC - RRR with S1/S2. No murmur, rubs, or gallops appreciated. ABDOMEN - Abdominal contour normal without pulsations or visible masses. BS normoactive all four quadrants. There is epigastric abdominal tenderness to palpation. No palpable masses, hepatosplenomegaly, or ascites noted. EXTREMITIES - No clubbing or peripheral cyanosis. +5/5 strength noted in UE/LE bilaterally. NEUROLOGIC - Cranial nerves II through XII grossly intact. PSYCH - A&O, and cooperates fully with examiner. Pt is very pleasant and int eracts well with examiner. Course Administered Medications Discontinued Medications Hydromorphone HCl (Hydromorphone Inj 0.5 Mg/0.5 Ml Syr) 0.5 mg IV NOW STA Stop: 05/08/21 10:58 Last Admin: 05/08/21 12:30 Dose: 0.5 mg Documented by: [id number] Hydromorphone HCl (Hydromorphone Inj 0.5 Mg/0.5 Ml Syr) 0.5 mg IV NOW STA Stop: 05/08/21 14:55 Last Admin: 05/08/21 15:05 Dose: 0.5 mg Documented by: [id number] Sodium Chloride (Nss 1000ml) 1,000 mls @ 999 mls/hr IV .Q1H1M MAGDALENA Stop: 05/08/21 12:00 Last Infusion: 05/08/21 14:10 Dose: 0 mls/hr Documented by: [id number] Admin: 05/08/21 12:30 Dose: 999 mls/hr Documented by: [id number] Ioversol (Optiray 320 100ml) 96 ml IV ONCE ONE Stop: 05/08/21 13:29 Last Admin: 05/08/21 13:28 Dose: 96 ml Documented by: [id number] Ondansetron HCl (Ondansetron Inj 2 Mg/Ml 2 Ml Vial) 4 mg IV NOW STA Stop: 05/08/21 10:58 Last Admin: 05/08/21 12:30 Dose: 4 mg Documented by: [id number] Medical Decision Making Laboratory Data Result diagrams: 05/08/21 11:48 05/08/21 11:48 Lab Results 05/08/21 05/08/21 Range/Units 11:48 11:48 WBC 4.68 L (4.8-10.8) K/uL RBC 4.75 (4.7-6.1) M/uL Hgb 14.3 (14.0-18.0) g/dL Hct 41.4 L (42-52) % MCV 87.2 (80-100) fL MCH 30.1 (25-34) pg MCHC 34.5 (32-36) g/dL RDW Std Deviation 38.3 (36.4-46.3) fL RDW Coeff of Daniella 12.0 (11.5-14.5) % Plt Count 368 (130-400) K/uL MPV 9.5 (7.4-10.4) fL Immature Gran % (Auto) 0.4 % Neut % (Auto) 73.7 % Lymph % (Auto) 15.0 % Cocke % (Auto) 10.3 % Eos % (Auto) 0.4 % Baso % (Auto) 0.2 % Neut # (Auto) 3.45 (1.4-6.5) K/uL Lymph # (Auto) 0.70 L (1.2-3.4) K/uL Cocke # (Auto) 0.48 (0.11-0.59) K/uL Eos # (Auto) 0.02 (0-0.5) K/uL Baso # (Auto) 0.01 (0-0.2) K/uL Immature Gran # (Auto) 0.02 (0.00-0.02) K/uL Sodium 138 (136-145) mmol/L Potassium 3.8 (3.5-5.1) mmol/L Chloride 104 (98-107) mmol/L Carbon Dioxide 27 (21-32) mmol/L Anion Gap 7.0 (3-11) BUN 6 L (7-18) mg/dl Creatinine 0.96 (0.6-1.4) mg/dl Est Cr Clr Drug Dosing 109.3 ml/min Est GFR ( Amer) 105.6 ml/min Est GFR (Non-Af Amer) 91.2 ml/min BUN/Creatinine Ratio 6.0 L (10-20) Glucose 112 H (70-99) mg/dl Calcium 8.7 (8.5-10.1) mg/dl Total Bilirubin 0.8 (0.2-1) mg/dl AST 27 (15-37) U/L ALT 35 (12-78) Alkaline Phosphatase 61 (45-117) U/L Troponin I < 0.015 (0-0.045) ng/ml Total Protein 6.8 (6.4-8.2) gm/dl Albumin 2.9 L (3.4-5.0) gm/dl Globulin 3.9 (2.5-4.0) gm/dl Albumin/Globulin Ratio 0.7 L (0.9-2) Amylase 40 (25-115) U/L Lipase 83 (73-393) U/L Specimen Hemolysis Imaging Data Radiologist's Impression: Abdomen/Pelvis CT 05/08/21 10:56 CT abd pelvis IV con only CLINICAL HISTORY: epigastric abd pain TECHNIQUE: Helical axial images of the abdomen and pelvis were obtained and displayed. Automated dose lowering techniques and/or adjustment according to patient size were utilized for this exam. This exam was performed with intravenous contrast. COMPARISON: Comparison is made to chest one view 08/29/2019 FINDINGS: Lower chest: Bibasilar atelectasis versus scarring is seen. Liver: Unremarkable. No focal lesions are seen. Gallbladder and biliary tree: No calcified gallstones. Normal caliber wall. No intra- or extrahepatic biliary ductal dilation. Pancreas: Unremarkable, no focal lesions. Spleen: Splenule is incidentally noted. Adrenals: Unremarkable. Kidneys and ureters: Unremarkable. Bladder: Limited evaluation due to underdistention. Reproductive organs: Prostatomegaly is seen. Bowel: Unremarkable appearance of the bowel. The appendix is normal. Lymph nodes Retroperitoneal: Unremarkable. Mesenteric: Unremarkable. Pelvic: Unremarkable. Peritoneum: Normal Vessels: Unremarkable. Abdominal wall: Unremarkable. Bones: Degenerative changes in the visualized spine. IMPRESSION: No acute abnormality is seen. ACT 112: Negative or not required by law. Electronically signed by: Roman Hernandez M.D. 05/08/2021 1:41 PM [facility] Narrative Patient was seen and evaluated as above in room B08. Review was performed of nursing notes and vital signs. I did review pertinent previous visits and patient history. After obtaining a thorough history and physical examination the above work up was performed. Patient presents to us today with epigastric abdominal discomfort that is worse after eating. This began shortly after receiving IV dexamethasone here in the emergency department 2 days ago. No chest pain or shortness of breath at the present time. Although the patient does note that he has been diagnosed with COVID-19 he is feeling much better in regard to the respiratory symptoms. I will note that the patient did undergo CTA of the chest about 2 days ago and revealed: Diffuse reticular and groundglass opacities compatible with history of Covid pneumonia. He clinically appears well at this time. He has a benign abdominal exam. Vital signs stable. Options of care were discussed with the patient. IV access was established. Labs were drawn. There is minimal leukopenia at 4.67. This is likely from the COVID-19 virus. No emergent anemia or metabolic disturbance. Troponin is negative. Lipase and amylase are both normal. CT scan of the abdomen and pelvis is overall reassuring. EKG reveals normal sinus rhythm at a rate of 61 bpm. QTc 434. QRS 84. This was compared to the EKG performed of May 04, 2021. There are T wave inversions now evident in the anterior leads. Patient has required several doses of pain medication here in the emergency department. With the patient having persistent discomfort when trying to eat in the epigastric region with a history of pancreatitis feeling similar, EKG changes, options of care were discussed with the patient. Patient prefers inpatient management. I believe this is reasonable. Case discussed with the hospitalist. Please refer to further documentation regarding his stay. Case was discussed with the attending physician. GCS: 15 In the evaluation and treatment of this patient the following differential diagnoses were entertained: Pancreatitis, gastritis, perforation, acute cholecys titis, perforation, abscess, CT, PE, dissection, among others. Impression & Plan Intractable epigastric abdominal pain, Acute electrocardiogram changes Discharge Plan Visit Data Chief Complaint: Abdominal Pain Stated Complaint: ABD PAIN ED Provider: Chris Aggarwal ED Midlevel Provider: Jace Lama Discharge Problem: Intractable epigastric abdominal pain, Acute electrocardiogram changes Patient Disposition: Admitted As Inpatient Condition: Good Forms Stand Alone Forms: [employer] Prescriptions Prescriptions: No Action benzonatate 100 mg capsule 200 mg PO TID PRN (Reason: cough) Qty: 20 RF: 0 acetaminophen [Tylenol Ex Str Arthritis Pain] 500 mg Tablet 500 mg PO Q6H PRN (Reason: Pain, Moderate) RF: 0 ibuprofen 200 mg Tablet 600 mg PO Q6H PRN (Reason: Pain) RF: 0 Referrals Referrals: Omayra Rodriguez CRNP [Primary Care Provider] -
[2021-05-08 12:04] LABS: Basophils # (auto) 0.01 K/uL (0-0.2); Basophils % (auto) 0.2 %; Eosinophils # (auto) 0.02 K/uL (0-0.5); Eosinophils % (auto) 0.4 %; Hematocrit (blood only) 41.4 % (42-52); Hemoglobin 14.3 g/dL (14.0-18.0); Immature Granulocytes # (auto) 0.02 K/uL (0.00-0.02); Immature Granulocytes % (auto) 0.4 %; Mean Corpuscular Hemoglobin 30.1 pg (25-34); Mean Corpuscular Hgb Conc 34.5 g/dL (32-36); Mean Corpuscular Volume 87.2 fL (80-100); Mean Platelet Volume 9.5 fL (7.4-10.4); Monocytes # (auto) 0.48 K/uL (0.11-0.59); Monocytes % (auto) 10.3 %; Neutrophils # (auto) 3.45 K/uL (1.4-6.5); Neutrophils % (auto) 73.7 %; Platelet Count 368 K/uL (130-400); RDW Standard Deviation 38.3 fL (36.4-46.3); Red Blood Count 4.75 M/uL (4.7-6.1); White Blood Count 4.68 K/uL (4.8-10.8)
[2021-05-08 12:32] LABS: Alanine Aminotransferase 35 (12-78); Albumin Globulin Ratio 0.7 (0.9-2); Albumin Level 2.9 gm/dl (3.4-5.0); Alkaline Phosphatase 61 U/L (45-117); Amylase 40 U/L (25-115); Bilirubin,Total 0.8 mg/dl (0.2-1); Blood Urea Nitrogen 6 mg/dl (7-18); Calcium 8.7 mg/dl (8.5-10.1); Carbon Dioxide 27 mmol/L (21-32); Chloride 104 mmol/L (98-107); Creatinine Clr Calc Pharmacy 109.3 ml/min; Est GFR (African American) 105.6 ml/min; Est GFR (Non-African American) 91.2 ml/min; Globulin 3.9 gm/dl (2.5-4.0); Glucose 112 mg/dl (70-99); Lipase 83 U/L (73-393); Potassium 3.8 mmol/L (3.5-5.1); Sodium 138 mmol/L (136-145); Total Protein 6.8 gm/dl (6.4-8.2); Troponin I < 0.015 ng/ml (0-0.045)
[2021-05-08 12:43] LABS: Aspartate Aminotransferase 27 U/L (15-37)
[2021-05-08] MEDS ORDERED: OPTIRAY 320 100ml IV ONE (13:28)
--- NOTE | 2021-05-08 13:43 | CT Scan Report ---
CT abd pelvis IV con only CLINICAL HISTORY: epigastric abd pain TECHNIQUE: Helical axial images of the abdomen and pelvis were obtained and displayed. Automated dose lowering techniques and/or adjustment according to patient size were utilized for this exam. This e xam was performed with intravenous contrast. COMPARISON: Comparison is made to chest one view 08/29/2019 FINDINGS: Lower chest: Bibasilar atelectasis versus scarring is seen. Liver: Unremarkable. No focal lesions are seen. Gallbladder and biliary tree: No calcified gallstones. Normal caliber wall. No intra- or extrahepatic biliary ductal dilation. Pancreas: Unremarkable, no focal lesions. Spleen: Splenule is incidentally noted. Adrenals: Unremarkable. Kidneys and ureters: Unremarkable. Bladder: Limited evaluation due to underdistention. Reproductive organs: Prostatomegaly is seen. Bowel: Unremarkable appearance of the bowel. The appendix is normal. Lymph nodes Retroperitoneal: Unremarkable. Mesenteric: Unremarkable. Pelvic: Unremarkable. Peritoneum: Normal Vessels: Unremarkable. Abdominal wall: Unremarkable. Bones: Degenerative changes in the visualized spine. IMPRESSION: No acute abnormality is seen. ACT 112: Negative or not required by law. Electronically signed by: Roman Hernandez M.D. 05/08/2021 1:41 PM
--- NOTE | 2021-05-08 15:51 | History & Physical Report ---
Date of Service May 08, 2021 Assessment & Plan (1) Intractable epigastric abdominal pain: Plan: Possible steroid induced pancreatitis vs gastritis or Gastric ulcer will continue NPO Will monitor lipase place on pepcid and monitor, (2) COVID-19: Plan: though positive, no other symptoms, History of Present Illness Chief Complaint: COVID 19 Primary Care Provider: SCOTT Hoyt 51 Yyo male with PMH of steroid induced pancreatitis aover 18 months ago comes into the hospital with abdominal Pain. Patient reports having COVID 19 symptoms since April 28. He came to the ER this past weekend and had a dose of decadron. Patient is no longer having SOB or cough. But is complaining of sharp epigastric abdominal pain. Patient reports worsening pain with any kind of oral intake. Allergies Allergy/AdvReac Type Severity Reaction Status Date / Time Cipro Allergy Unknown SEVERLY ILL Unverified 08/31/14 20:27 ciprofloxacin Allergy Unknown SEVERLY ILL Unverified 05/04/21 07:36 morphine Allergy Unknown HIVES Verified 05/04/21 07:36 Quinolones Allergy Unknown Verified 05/04/21 07:36 dexamethasone Allergy Unknown Unverified 05/08/21 11:25 Home Medications Medication Instructions Recorded Confirmed Type acetaminophen 500 mg tablet 500 mg PO Q6H PRN 05/04/21 05/08/21 History ibuprofen 200 mg tablet 600 mg PO Q6H PRN 05/04/21 05/08/21 History benzonatate 100 mg capsule 200 mg PO TID PRN #20 cap 05/06/21 05/08/21 Rx Past Med/Surg History Medical History Cervical stenosis of spinal canal (06/09/14) GERD (gastroesophageal reflux disease) Surgical History H/O arthroscopy H/O nasal septoplasty H/O sinus surgery History of neck surgery Family History Other Breast cancer Diabetes Denies family history of Coronary heart disease Colorectal cancer Social History Smoking Status: Never smoker Second Hand Exposure: No; Hx Alcohol Use: No Hx Substance Use: No Preferred Language: Jamaican Communication Ability: Effective Visual Impairment: No Limitations Hearing Ability: Normal Track Maintainer Required: No Beliefs That Will Affect Care: None marital status: Current Living Situation: Spouse Current Living Situation Comment: current occupational status: employed current occupation: [employer] Feels Safe at Home: Yes Assistive Devices: None Review of Systems Constitutional: no fever and no sweats Eyes: no blind spots Ear, Nose, Mouth, Throat: no ear pain Respiratory: no cough Cardiovascular: no chest pain Gastrointestinal: + abdominal pain Genitourinary: no dysuria Musculoskeletal: no back pain Integumentary: no acne Neurologic: no gait abnormality Psychiatric: no behavioral changes Endocrine: + fatigue Allergy / Immunological: no GI upset with certain foods Physical Exam Constitutional: WD/WN, vitals as above Eyes: PERRL, conjunctivae normal, anicteric sclerae ENMT: external ear and nose normal, oropharynx normal Neck: trachea midline, no thyromegaly Respiratory: normal respiratory effort, lungs clear to auscultation Cardiovascular: RRR, no murmur, no edema Gastrointestinal (Abdomen): normal bowel sounds, soft, nontender, no hepatosplenomegaly Musculoskeletal: no cyanosis or clubbing, extremities motor strength 5/5 Skin: no rashes, warm and dry Neurologic: PERRL, EOMI, accommodation nl, no face palsy, no dysarthria Psychiatric: A+Ox3, euthymic affect Lymphatic: no cervical or axillary lymphadenopathy Results & Data Results & Data ([facility]) Vital Signs (Past 12 Hours) Vital Signs Temp Pulse Resp BP Pulse Ox 05/08/21 14:00 68 16 143/84 H 95 05/08/21 12:00 58 L 16 172/97 H 96 05/08/21 10:37 36.5 C 75 19 146/105 H 95 PG Care Time/CCT Total # of Minutes Spent Total Time Spent with Patient: Total time spent is greater than 50% in coordination of care (as documented) at patient's floor/unit and/or counseling patient: Coding Level of Care Code 37510 Initial Inpt Care Lvl 3 Diagnoses Intractable epigastric abdominal pain R10.13 COVID-19 U07.1
[2021-05-08] MEDS ORDERED: ACETAMINOPHEN 500 MG TAB PO PRN (16:26)
[2021-05-08] MEDS: LACTATED RINGER'S 1,000 ML IV SCH (17:35)
[2021-05-08] MEDS: HYDROmorphone INJ 0.5 MG/0.5 ML SYR IV PRN (20:56)
[2021-05-08] MEDS ORDERED: PROCHLORPERAZINE 5 MG in SYRINGE 4 ML IV ONE (22:00)
[2021-05-09] MEDS: LACTATED RINGER'S 1,000 ML IV SCH ×2 (03:06→11:22)
[2021-05-09] MEDS: HYDROmorphone INJ 0.5 MG/0.5 ML SYR IV PRN (04:56)
[2021-05-09 06:24] LABS: Hematocrit (blood only) 43.1 % (42-52); Hemoglobin 14.6 g/dL (14.0-18.0); Mean Corpuscular Hemoglobin 30.2 pg (25-34); Mean Corpuscular Hgb Conc 33.9 g/dL (32-36); Mean Platelet Volume 9.4 fL (7.4-10.4); Platelet Count 366 K/uL (130-400); RDW Coefficient of Variation 12.2 % (11.5-14.5); RDW Standard Deviation 39.1 fL (36.4-46.3); Red Blood Count 4.84 M/uL (4.7-6.1); White Blood Count 5.48 K/uL (4.8-10.8)
[2021-05-09 07:03] LABS: Albumin Level 2.6 gm/dl (3.4-5.0); BUN Creatinine Ratio 7.6 (10-20); Calcium 8.7 mg/dl (8.5-10.1); Est GFR (African American) 111.2 ml/min; Potassium 3.4 mmol/L (3.5-5.1)
[2021-05-09 07:06] LABS: Albumin Globulin Ratio 0.7 (0.9-2); Bilirubin,Total 0.6 mg/dl (0.2-1); Globulin 3.8 gm/dl (2.5-4.0); Total Protein 6.4 gm/dl (6.4-8.2)
[2021-05-09] MEDS ORDERED: FAMOTIDINE 20 MG TAB PO SCH (09:00)
[2021-05-09] MEDS ORDERED: ONDANSETRON INJ 2 MG/ML 2 ML VIAL IV PRN (09:28)
--- NOTE | 2021-05-09 15:33 | Discharge Summary ---
Date of Service May 09, 2021 Admission HPI Per Admitting Provider 51 Yyo male with PMH of steroid induced pancreatitis aover 18 months ago comes into the hospital with abdominal Pain. Patient reports having COVID 19 symptoms since April 28. He came to the ER this past weekend and had a dose of decadron. Patient is no longer having SOB or cough. But is complaining of sharp epigastric abdominal pain. Patient reports worsening pain with any kind of oral intake. Admission Exam Per Admitting Provider Constitutional: WD/WN, vitals as above Eyes: PERRL, conjunctivae normal, anicteric sclerae ENMT: external ear and nose normal, oropharynx normal Neck: trachea midline, no thyromegaly Respiratory: normal respiratory effort, lungs clear to auscultation Cardiovascular: RRR, no murmur, no edema Gastrointestinal (Abdomen): normal bowel sounds, soft, nontender, no hepatosplenomegaly Musculoskeletal: no cyanosis or clubbing, extremities motor strength 5/5 Skin: no rashes, warm and dry Neurologic: PERRL, EOMI, accommodation nl, no face palsy, no dysarthria Psychiatric: A+Ox3, euthymic affect Lymphatic: no cervical or axillary lymphadenopathy Principal Diagnosis Intractable Epigastric Pain Discharge Exam GENERAL: 51 yo Well-developed, well-nourished WM. NAD. LUNGS: No accessory muscle use. Fine bibasilar crackles. No W/R/R. CARDIOVASCULAR: Regular rate and rhythm. No M/G/R. No JVD. ABDOMEN: Soft, non-tender and non-distended. No palpable masses. Bowel sounds normoactive x 4 quad. EXTREMITIES: No edema. Non-tender. Peripheral pulses +2/4. NEUROLOGIC: A&O x3. No focal neurological deficits. CN II-XII grossly intact. PSYCHIATRIC: Cooperative. Appropriate mood and affect. SKIN: Warm, dry, intact. No rashes or lesions. Discharge Data Allergies Allergy/AdvReac Type Severity Reaction Status Date / Time Cipro Allergy Unknown SEVERLY ILL Unverified 08/31/14 20:27 ciprofloxacin Allergy Unknown SEVERLY ILL Unverified 05/04/21 07:36 morphine Allergy Unknown HIVES Verified 05/04/21 07:36 Quinolones Allergy Unknown Verified 05/04/21 07:36 dexamethasone Allergy Unknown Unverified 05/08/21 11:25 Consultations 05/08/21 13:56 ED Decision to Admit Stat Ordered Studies Abdomen/Pelvis CT 05/08/21 10:56 CT abd pelvis IV con only CLINICAL HISTORY: epigastric abd pain TECHNIQUE: Helical axial images of the abdomen and pelvis were obtained and displayed. Automated dose lowering techniques and/or adjustment according to patient size were utilized for this exam. This exam was performed with intravenous contrast. COMPARISON: Comparison is made to chest one view 08/29/2019 FINDINGS: Lower chest: Bibasilar atelectasis versus scarring is seen. Liver: Unremarkable. No focal lesions are seen. Gallbladder and biliary tree: No calcified gallstones. Normal caliber wall. No intra- or extrahepatic biliary ductal dilation. Pancreas: Unremarkable, no focal lesions. Spleen: Splenule is incidentally noted. Adrenals: Unremarkable. Kidneys and ureters: Unremarkable. Bladder: Limited evaluation due to underdistention. Reproductive organs: Prostatomegaly is seen. Bowel: Unremarkable appearance of the bowel. The appendix is normal. Lymph nodes Retroperitoneal: Unremarkable. Mesenteric: Unremarkable. Pelvic: Unremarkable. Peritoneum: Normal Vessels: Unremarkable. Abdominal wall: Unremarkable. Bones: Degenerative changes in the visualized spine. IMPRESSION: No acute abnormality is seen. ACT 112: Negative or not required by law. Electronically signed by: Roman Hernandez M.D. 05/08/2021 1:41 PM 05/09/21 06:10 05/09/21 06:10 Hospital Course (1) Intractable epigastric abdominal pain: Possible steroid induced pancreatitis vs gastritis or Gastric ulcer Kept NPO, provided IVF hydration and pain control with IV Dilaudid Pepcid initiated Lipase trended, no elevation Pt is doing well this morning, pain has resolved, Mild nausea that has been resolved by dose of IV Zofran Pt has been tolerating ice chips and small sips of water Diet advanced this afternoon after seen on rounds to clear liquids He is tolerating well at this time will plan to d/c home Advised continuing clear liquids this evening and advance back to regular diet as tolerated Rx given for Zofran to use at home PRN (2) COVID-19: though positive, no significant symptoms/complications, on day #11 since symptom onset Not a candidate for any treatment Not requiring supplemental O2 Discharge home today. Advise pcp follow up. Clear liquid diet tonight and can advance back to regular diet as tolerated. Total Time Total Time Spent Total Time Spent (In Minutes): <30 minutes Discharge Plan Discharge Items Patient Disposition: Home - Self-Care Reason For Visit: PANCREATITIS Discharge Diagnosis: Epigastric pain Condition on Discharge: Good Activity: Resume your previous activity Non-emergency contact: Primary Care Provider Call non-emergency contact if: you have any medication questions and your symptoms worsen Follow-up/Referrals: Omayra Rodriguez, SCOTT [Primary Care Provider] - Diet: Clear liquid Addtl Attending Provider Instructions: 1. Continue clear liquids this evening 2. Slowly advance diet back to regular as tolerated 3. Follow up with family doctor within 1 week Pending Studies at Discharge: No Stand-Alone Forms: [employer], Smoking Cessation Medications and DC Order Prescriptions: New ondansetron HCl 4 mg tablet 4 mg PO Q8H PRN (Reason: nausea and vomiting) 5 Days Qty: 15 RF: 0 Continued benzonatate 100 mg capsule 200 mg PO TID PRN (Reason: cough) Qty: 20 RF: 0 acetaminophen [Tylenol Ex Str Arthritis Pain] 500 mg Tablet 500 mg PO Q6H PRN (Reason: Pain, Moderate) RF: 0 ibuprofen 200 mg Tablet 600 mg PO Q6H PRN (Reason: Pain) RF: 0 Discharge Orders: Discharge Order (Routine); Ordered 05/09/21 Ordered By: Johana Gonzalez Admission Data Admit Date/Time: 05/08/21 16:29 Attending Provider: Quinn Neri Admit Provider: Moiz Moss Primary Care Provider: Omayra Rodriguez Other Providers: Moiz Moss Coding Level of Care Code D/C DAY MANAGEMENT <30 MINS Diagnoses Intractable epigastric abdominal pain R10.13 COVID-19 U07.1
--- NOTE | 2021-05-09 16:09 | Electrocardiogram Report ---
Test Reason : Blood Pressure : / mmHG Vent. Rate : 061 BPM Atrial Rate : 061 BPM P-R Int : 146 ms QRS Dur : 084 ms QT Int : 432 ms P-R-T Axes : 064 019 007 degrees QTc Int : 434 ms Normal sinus rhythm Low voltage QRS Abnormal ECG When compared with ECG of 04-MAY-2021 05:50, T wave inversion now evident in Anterior leads Confirmed by Bryan Lara ([id number]) on 05/09/2021 4:09:12 PM Referred By: REFERRED SELF Confirmed By:Bryan Lara
--- NOTE | 2021-05-22 15:57 | Coding Query ---
CODING QUERY To promote full compliance with coding requirements relating to patient care, provider participation is requested in all cases of welder boilermaker uncertainty. Please assist us with the question(s) below: Coding Question(s): Please specify below, regarding the possible steroid induced pancreatitis. ( ) Possible Acute Steroid Induced Pancreatitis ( ) Possible Chronic Steroid Induced Pancreatitis ( xxx) Pancreatitis. etiology unlear Physician's Response(s): Thank you Eleni Menjivar Principal Diagnosis: "that condition established after study, to be chiefly responsible for occasioning the admission of the patient to the hospital for care." Co-Existing Principal Diagnosis: "when two or more diagnoses equally meet the criteria for principal diagnosis as determined by the circumstances of admission, diagnostic work up, and/or therapy provided, and the Alphabetic Index, Tabular List, or another coding guideline does not provide sequencing direction, any one of the diagnoses may be sequenced first." "When the physician has documented what appears to be a current diagnosis in the body of the record, but has not included the diagnosis in the final diagnostic statement, the physician should be asked whether the diagnosis should be added." ([facility] 2 QTR90. p3-4) MONTY
--- NOTE | 2021-05-22 16:00 | Coding Query ---
CODING QUERY To promote full compliance with coding requirements relating to patient care, provider participation is requested in all cases of remote coders uncertainty. Please assist us with the question(s) below: Coding Question(s): Please specify below, regarding COVID-19 documentation. ( ) Current COVID-19 infection during this admission ( ) History only of COVID-19 infection during this admission ( xx ) Other: Please Specify__tested positive did not have covid pneumonia Physician's Response(s): Thank you Eleni Menjivar Principal Diagnosis: "that condition established after study, to be chiefly responsible for occasioning the admission of the patient to the hospital for care." Co-Existing Principal Diagnosis: "when two or more diagnoses equally meet the criteria for principal diagnosis as determined by the circumstances of admission, diagnostic work up, and/or therapy provided, and the Alphabetic Index, Tabular List, or another coding guideline does not provide sequencing direction, any one of the diagnoses may be sequenced first." "When the physician has documented what appears to be a current diagnosis in the body of the record, but has not included the diagnosis in the final diagnostic statement, the physician should be asked whether the diagnosis should be added." ([facility] 2 QTR90. p3-4) MONTY
== END 2021-05-09 18:05 | disposition home or self-care (01) | DRG 438 ==
LOC: ED 10:26 → SUATTDRO 16:29 → 3W 16:29

== ENCOUNTER 2022-01-11 20:51 | Observation (INO) ==
[2022-01-11] MEDS ORDERED: ONDANSETRON INJ 2 MG/ML 2 ML VIAL IV STA ×2 (21:07→23:17)
[2022-01-11] MEDS ORDERED: SODIUM CHLORIDE 0.9% 1000ML 1,000 ML IV STA (23:17)
[2022-01-11] MEDS ORDERED: fentaNYL citrate 100 MCG/2 ML VIAL IV STA (23:19)
[2022-01-11 23:29] LABS: Basophils # (auto) 0.04 K/uL (0-0.2); Basophils % (auto) 0.6 %; Eosinophils # (auto) 0.01 K/uL (0-0.50); Eosinophils % (auto) 0.1 %; Hematocrit (blood only) 47.9 % (40.1-51.0); Hemoglobin 16.7 g/dl (14.0-18.0); Immature Granulocytes # (auto) 0.02 K/uL (0.00-0.02); Immature Granulocytes % (auto) 0.3 %; Lymphocytes # (auto) 0.77 K/uL (1.2-3.4); Lymphocytes % (auto) 11.1 %; Mean Corpuscular Hemoglobin 30.2 pg (25.0-34.0); Mean Corpuscular Hgb Conc 34.9 g/dL (32.0-36.0); Mean Corpuscular Volume 86.6 fL (80.0-100.0); Mean Platelet Volume 10.3 fL (9.4-12.4); Monocytes % (auto) 4.3 %; Neutrophils # (auto) 5.81 K/uL (1.4-6.5); Neutrophils % (auto) 83.6 %; Platelet Count 205 K/uL (130-400); RDW Standard Deviation 38.5 fL (36.4-46.3); Red Blood Count 5.53 M/uL (4.63-6.08); White Blood Count 6.95 K/ul (4.8-10.8)
[2022-01-11 23:59] LABS: Albumin Globulin Ratio 1.6 (0.9-2); Albumin Level 4.4 gm/dl (3.4-5.0); BUN Creatinine Ratio 9.9 (10-20); Bilirubin,Total 1.7 mg/dl (0.2-1.0); Calcium 9.1 mg/dl (8.5-10.1); Creatinine Clr Calc Pharmacy 95.5 ml/min; Est GFR (African American) 88.6 ml/min; Est GFR (Non-African American) 76.5 ml/min; Globulin 2.7 gm/dl (2.5-4.0); Potassium 3.6 mmol/L (3.5-5.1); Total Protein 7.1 gm/dl (6.0-8.3)
[2022-01-12 00:31] LABS: Troponin I High Sensitivity 5.5 pg/ml (0-20)
--- NOTE | 2022-01-12 02:05 | History & Physical Report ---
Date of Service January 12, 2022 Assessment & Plan (1) Abdominal pain, epigastric: (2) GERD (gastroesophageal reflux disease): Plan: 51yo male with a history of GERD and pancreatitis presents with a one-day history of abdominal pain, nausea, and vomiting. Abdominal pain, nausea, vomiting, hyperbilirubinemia Patient with a 1.5-day history of abdominal pain, nausea, and vomiting Bilirubin elevated on admission to 1.7, other LFTs wnl, no leukocytosis, no electrolyte abnormalities In the ED, NSS 1L bolus administered (x1) KUB and US abdomen ordered, PT/INR ordered LR @ 80mL/hr (x1 bag ordered), protonix ordered Pain control: APAP 1000mg q8h scheduled, additional analgesics as-needed Antiemesis: zofran 4mg IV q4h prn ordered, escalate if needed Trend daily CBC, CMP Bradycardia Patient with HR in the high 40s/low 50s, history of such noted Asymptomatic EKG: sinus bradycardia without overt ischemic change Low suspicion for bradycardia to be pathological in etiology Continue to monitor GERD: protonix ordered FEN: NPO for now, LR @ 80mL/hr (x1 bag ordered) Code status: full code DVT ppx: SCDs Dispo: med/surg (3) Nausea: History of Present Illness Primary Care Provider: SCOTT Hayes 51yo male with a history of GERD and pancreatitis presents with a one-day history of abdominal pain, nausea, and vomiting. Symptoms began late on 01/10. At that time he took a dose of [place] but his pain continued to worsen. Patient has been nauseous and vomited once prior to arrival and once in ED triage. Patient reports his episode of vomiting in ED triage was greenish in color. Last BM was on 01/10 prior to symptom onset.Patient drinks alcohol about twice a month, one to two drinks per occasion. Patient is a never-smoker and denies other recreational substance use. Patient Denies fever, chills, CP, SOB, palpitations, diarrhea, hematochezia, melena, dysuria, numbness, tingling, weakness, or other complaints. Upon arrival, vitals were notable for elevated BP (150-180s/90-110s) and bradycardia (high 40s/low 50s). No tachypnea, patient afebrile, spO2 adequate on room air. Initial labs were notable for hyperbilirubinemia (1.7). No leukocytosis, no anemia, platelets wnl, no electrolyte abnormalities, AST/ALT/alk phos wnl. In the ED, patient was given zofran 4mg IV (x2), NSS 1L bolus, and fentanyl 100mcg IV (x1). Surrogate decision-maker in case of an emergency: Melinda Durand (cell: [phone]) Allergies Allergy/AdvReac Type Severity Reaction Status Date / Time ciprofloxacin Allergy Severe SEVERLY ILL Verified 01/12/22 11:00 morphine Allergy Severe Redness of Verified 01/12/22 11:00 Skin Quinolones Allergy Unknown Unknown Verified 01/12/22 02:26 hydromorphone [From Dilaudid] AdvReac Intermediate Difficulty Verified 01/12/22 11:01 Breathing dexamethasone AdvReac Unknown Verified 01/12/22 11:00 Home Medications Medication Instructions Recorded Confirmed Type acetaminophen 500 mg tablet 500 mg PO Q6H PRN Pain, Moderate 05/04/21 01/12/22 History ondansetron 4 mg disintegrating 4 mg PO Q8H PRN nausea and 01/11/22 01/12/22 Rx tablet vomiting 5 days #15 tabs omeprazole 20 mg tablet,delayed 10 mg PO DAILY 01/12/22 01/12/22 History release Past Med/Surg History Medical History (Updated 01/12/22 @ 02:48 by Evgeny Gentile MD) Cervical stenosis of spinal canal (06/09/14) COVID-19 GERD (gastroesophageal reflux disease) Pancreatitis Surgical History H/O arthroscopy H/O nasal septoplasty H/O sinus surgery History of neck surgery Family History Other Breast cancer Diabetes Denies family history of Coronary heart disease Colorectal cancer Social History Smoking Status: Never smoker Second Hand Exposure: No; Hx Alcohol Use: No Hx Substance Use: No Preferred Language: Occitan Communication Ability: Effective Visual Impairment: No Limitations Hearing Ability: Normal Manager Radio Required: No Beliefs That Will Affect Care: None marital status: Current Living Situation: Spouse Current Living Situation Comment: current occupational status: employed current occupation: [employer] How many Children do You have: 1 Feels Safe at Home: No Is there a partner from a previous relationship who is making you feel unsafe now?: No Safety Concerns: Feels Safe At This Time Assistive Devices: None Physical Exam Physical Exam: Constitutional: well-appearing, no acute distress HEENT: NCAT, no conjunctival injection CV: regular rhythm, no murmur appreciated, extremities well-perfused, no LE edema Resp: CTABL, no wheezes/rales/rhonchi appreciated, no increased work of breathing GI: soft, nondistended, mild epigastric tenderness appreciated, nontender elsewhere, BS normoactive MSK: no flank tenderness Skin: warm, dry, no rash appreciated Neuro: alert, oriented, no focal neurologic deficit appreciated Results & Data Results & Data ([facility]) Vital Signs (Past 12 Hours) Vital Signs Temp Pulse Pulse Resp BP BP Pulse Ox 01/12/22 01:00 47 L 16 154/85 H 96 01/11/22 23:49 49 L 16 98 01/11/22 23:47 36.8 C 50 L 17 135/69 98 01/11/22 21:00 35.7 C L 65 22 183/109 H 100 O2 Del Method 01/12/22 01:00 Room Air 01/11/22 23:49 Room Air 01/11/22 23:47 Room Air 01/11/22 21:00 Room Air Supervising Physician Co-Signing Physician Notes Attending addendum: I have physically seen this patient, have supervised the medical residents activities, and agree with the H&P unless as otherwise noted. Assessment and Plan: Epigastric abdominal pain/GERD/nausea vomiting- CT abdomen pelvis negative CT angiography chest PE protocol negative COVID-19 negative NPO for now Isolated elevated bilirubin suggestive of Gilbert's LR at 80 mils per hour Pantoprazole 40 mg IV daily Zofran 4 mg IV every 6 hours as needed Unclear etiology of symptoms, will consult gastroenterology due to his reported severity Remaining orders and notations as noted Resident Activity Tracking Resident Involvement: Resident Care Provided and Message Clerk Coverage Note Care Provided: Adult Hospital Medicine
[2022-01-12] MEDS ORDERED: METOCLOPRAMIDE HCL INJ 5 MG/ML 2 ML VIAL IV STA (02:15)
[2022-01-12] MEDS ORDERED: KETOROLAC TROMETHAMINE 15 MG/ML VIAL IV ONE (02:54)
[2022-01-12] MEDS ORDERED: LACTATED RINGER'S 1,000 ML IV SCH (04:50)
[2022-01-12] MEDS ORDERED: MELATONIN 3 MG TAB PO PRN (04:50)
[2022-01-12] MEDS ORDERED: ACETAMINOPHEN 500 MG TAB PO SCH (06:00)
--- NOTE | 2022-01-12 06:54 | Ultrasound Report ---
US abdomen limited HISTORY: 51 years-old Male epigastric pain acute epigastric abdominal pain COMPARISON: CT abdomen and pelvis 01/11/2022 TECHNIQUE: Multiple real-time sonographic images of the right upper quadrant abdomen were obtained as sessing grayscale appearance and color flow FINDINGS: The pancreas is mostly obscured by bowel gas. The liver is also partially obscured by bowel gas with the imaged portions appearing unremarkable. No hepatic mass identified. The liver measures up to 18.4 cm in length. Gallbladder sludge without cholelithiasis, wall thickening or pericholecystic fluid. N egative sonographic Mancuso's sign. The imaged right kidney is unremarkable without hydronephrosis. Normal common bile duct, 3 mm. IMPRESSION: 1. Mild layering gallbladder sludge. No cholelithiasis or sonographic evidence of acute cholecystitis . 2. No biliary ductal dilation. ACT 112: Negative or not required by law. The above report was generated using voice recognition software. It may contain grammatical, syntax o r spelling errors. Electronically signed by: Conner Mcclure M.D. 01/12/2022 6:52 AM
--- NOTE | 2022-01-12 07:00 | XRay Report ---
KUB HISTORY: Acute generalized abdominal pain abdominal pain COMPARISON: CT abdomen and pelvis 01/11/2022 FINDINGS: Nonobstructive bowel gas pattern. Air-filled nondilated loops of large and small bowel are likely physiologic. Surgical clips of the upper scrotum. No renal calculi. No ureteral calculi. No p neumoperitoneum or pneumatosis. Degenerative changes of the lower lumbar spine. No fracture. IMPRESSION: Nonobstructive bowel gas pattern. ACT 112: Negative or not required by law. The above report was generated using voice recognition software. It may contain grammatical, syntax o r spelling errors. Electronically signed by: Conner Mcclure M.D. 01/12/2022 6:59 AM
[2022-01-12] MEDS: D5W AND LACTATED RINGERS 1,000 ML IV SCH ×2 (09:24→18:41)
[2022-01-12] MEDS: PANTOprazole 40 MG in SYRINGE 0 ML IV SCH ×2 (09:29→21:45)
--- NOTE | 2022-01-12 10:32 | Electrocardiogram Report ---
Test Reason : Blood Pressure : / mmHG Vent. Rate : 044 BPM Atrial Rate : 044 BPM P-R Int : 170 ms QRS Dur : 086 ms QT Int : 484 ms P-R-T Axes : 057 019 013 degrees QTc Int : 413 ms Marked sinus bradycardia Abnormal ECG When compared with ECG of 11-JAN-2022 01:44, Vent. rate has decreased BY 21 BPM Confirmed by Sergio Calzada ([id number]) on 01/12/2022 10:32:03 AM Referred By: REFERRED SELF Confirmed By:Sergio Calzada
[2022-01-12] MEDS ORDERED: KETOROLAC 30 MG/ML VIAL IV ONE (10:45)
[2022-01-12] MEDS: ONDANSETRON INJ 2 MG/ML 2 ML VIAL IV PRN (10:57)
[2022-01-12 11:03] LABS: Amphetamines+Metham, Urine Neg (Neg); Barbiturates, Urine Neg (Neg); Benzodiazepine, Urine Neg (Neg); Cocaine, Urine Neg (Neg); MDMA (Ecstacy), Urine Neg (Neg); Methadone, Urine Neg (Neg); Opiate, Urine Neg (Neg); Phencyclidine, Urine Neg (Neg)
[2022-01-12] MEDS: ACETAMINOPHEN 1,000 MG/100 ML VIAL IV PRN (11:20)
[2022-01-12 11:49] LABS: Adenovirus F 40/41 PCR Not Detected (NotDetected); Astrovirus PCR Not Detected (NotDetected); Campylobacter PCR Not Detected (NotDetected); Clostridium diff Toxin A/B PCR Not Detected (NotDetected); Cryptosporidium PCR Not Detected (NotDetected); Cyclospora cayetanensis PCR Not Detected (NotDetected); Entamoeba histolytica PCR Not Detected (NotDetected); Enteroaggregative E.coli(EAEC) Not Detected (NotDetected); Enterotoxigenic E.coli (ETEC) Not Detected (NotDetected); Giardia lamblia PCR Not Detected (NotDetected); Norovirus GI/GII PCR Not Detected (NotDetected); Plesiomonas shigelloides PCR Not Detected (NotDetected); Rotavirus A PCR Not Detected (NotDetected); Salmonella PCR Not Detected (NotDetected); Sapovirus PCR Not Detected (NotDetected); Shiga-like Toxin E.coli (STEC) Not Detected (NotDetected); Shigella/Enteroinvasive E.coli Not Detected (NotDetected); Vibrio cholerae PCR Not Detected (NotDetected); Vibrio species PCR Not Detected (NotDetected); Yersinia enterocolitica PCR Not Detected (NotDetected)
[2022-01-12 11:57] LABS: Enteropathogenic E.coli (EPEC) DETECTED (NotDetected)
[2022-01-12] MEDS ORDERED: fentaNYL citrate 100 MCG/2 ML VIAL ONE (12:24)
[2022-01-12] MEDS ORDERED: fentaNYL citrate 100 MCG/2 ML VIAL IV ONE (12:29)
[2022-01-12] MEDS ORDERED: Nursing to Pharmacy Communication SCH (12:30)
[2022-01-12] MEDS ORDERED: fentaNYL citrate 100 MCG/2 ML VIAL IV PRN (13:57)
--- NOTE | 2022-01-12 14:13 | History & Physical Bridge Note ---
Date of Service January 12, 2022 History & Physical Bridge Note I have examined the patient, reviewed the History & Physical and in the interval since the performance of the History & Physical I have noted the following changes of clinical significance: Ordered stool bio fire, enteropathogenic E. coli positive; explains symptoms; supportive treatment; in severe pain so cautious pain control with narcotics
--- NOTE | 2022-01-12 14:59 | Gastrointestinal Consultation ---
Date of Consultation January 12, 2022 Assessment & Plan (1) Abdominal pain, epigastric: 51 year old male with history of COVID-19 infection, pancreatitis x 2 (2019, 2020 following IV steroid use) presenting with upper abd pain, nausea, loose stools which is positive for EPEC His abdominal examination is benign and he is comfortable during evaluation Conservative management NPO for bowel rest IV fluids for hydration Antiemetics PRN Bentyl 10 mg three times daily PRN Consider OP general surgery evaluation given sludge on imaging He is overdue for an outpatient colonoscopy He is overdue for an outpatient EUS given previous pancreatitis episodes in 2019 and 2020 Thank you for allowing us to participate in the care of this patient. Please call with any acute changes, questions or concerns. Please see addendum below with additional recommendation from my supervising physician. Supervising Physician Co-Signing Physician Notes I performed a history and physical examination of the patient today, including specifically on physical exam - soft abdomen. I have discussed the patient's management with the advanced practitioner. Please refer to the nurse practitioner's note for the documented findings and plan of care. Presented with abdominal pain and diarrhea, found with EPEC on stool testing, no rectal bleeding or fever, not immunocompromised, no BM since admission. Labs normal. Had Hx of pancreatitis and imaging showed biliary sludge. Recommend: Conservative treatment, no indication for ABx therapy. EUS as OP in view of Hx of pancreatitis. Consider surgical evaluation as OP regarding cholecystectomy. Colonoscopy as OP. PPi for now. PRN Bentyl. Recall GI if needed. History of Present Illness Reason for Consultation: pt request Requesting Physician: Muna Attending Physician: Juju Toro MD History of Present Illness 51 year old male with history of GERD, KRAMER, lumbar radiculopathy and others below presenting to the ED with abd pain, admitted w/ EPEC infection. Pt requesting GI evaluationNo previous [facility] records to review as he has not been established with our group in the past. He had pancreatitis x 2 he reports. Initial episode was after taking steroids for a back injury. The second episode was after taking steroid for a COVID infection. He was admitted with the first episode, imaging consistent with acute pancreatitis. Notes between episodes he felt well. He was feeling well until about 2 days ago. Upper abd and flank pain. Associated with change in stools, loose stool and nausea. In the ED, initial labs including LFTs and lipase were unremarkable. Stool + ecoli. Denies tobacco use Does drink ETOH socially with his partner CBC WNL Kidney function stable Tbili 1.7, AST 17, ALT 9, ALKP 48 Lipase WNL Stool + EPEC + family history of colon CA in a grandmother ABD US 2021: Mild layering gallbladder sludge. No cholelithiasis or sonographic evidence of acute cholecystitis.. No biliary ductal dilation. KUB 2021: Nonobstructive bowel gas pattern. CTAP 2021: No bowel wall thickening or obstruction. No hydronephrosis. Colonic diverticulosis. No evidence for acute diverticulitis. CTAP 2020: Liver: Unremarkable. No focal lesions are seen.Gallbladder and biliary tree: No calcified gallstones. Normal caliber wall. No intra- or extrahepatic biliary ductal dilation.Pancreas: Unremarkable, no focal lesions. MRI ABD 2020: No biliary ductal dilatation. No common bile duct calculi identified. Peripancreatic infiltration and fluid consistent with acute pancreatitis. Persistent small bowel dilatation. This is better depicted on CT of August 29, 2019. An ileus is favored secondary to acute pancreatitis. CTAP 2020: Interstitial edematous pancreatitis with acute peripancreatic fluid in the left anterior pararenal space. No evidence of necrosis.. Feces within mildly distended small bowel loops in the central and left mid abdomen. No convincing evidence of obstruction. This may relate to delayed transit in the setting of ileus reactive to the presence of pancreatitis. Low-grade bowel obstruction or enteritis are considered much less likely. Radiographic follow-up to be considered. ABD US 2020: No cholelithiasis or biliary ductal dilatation. EGD: none Colonoscopy: none EUS: none Allergies Allergy/AdvReac Type Severity Reaction Status Date / Time ciprofloxacin Allergy Severe SEVERLY ILL Verified 01/12/22 11:00 morphine Allergy Severe Redness of Verified 01/12/22 11:00 Skin Quinolones Allergy Unknown Unknown Verified 01/12/22 02:26 hydromorphone [From Dilaudid] AdvReac Intermediate Difficulty Verified 01/12/22 11:01 Breathing dexamethasone AdvReac Unknown Verified 01/12/22 11:00 Home Medications Medication Instructions Recorded Confirmed Type acetaminophen 500 mg tablet 500 mg PO Q6H PRN Pain, Moderate 05/04/21 01/12/22 History ondansetron 4 mg disintegrating 4 mg PO Q8H PRN nausea and 01/11/22 01/12/22 Rx tablet vomiting 5 days #15 tabs omeprazole 20 mg tablet,delayed 10 mg PO DAILY 01/12/22 01/12/22 History release Patient History Medical History (Updated 01/12/22 @ 02:48 by Evgeny Gentile MD) Cervical stenosis of spinal canal (06/09/14) COVID-19 GERD (gastroesophageal reflux disease) Pancreatitis Surgical History H/O arthroscopy H/O nasal septoplasty H/O sinus surgery History of neck surgery Family History Other Breast cancer Diabetes Denies family history of Coronary heart disease Colorectal cancer Social History Smoking Status: Never smoker Second Hand Exposure: No; Hx Alcohol Use: No Hx Substance Use: No Preferred Language: Ukrainian Communication Ability: Effective Visual Impairment: No Limitations Hearing Ability: Normal 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 Beliefs That Will Affect Care: None marital status: Current Living Situation: Spouse Current Living Situation Comment: current occupational status: employed current occupation: [employer] How many Children do You have: 1 Feels Safe at Home: No Is there a partner from a previous relationship who is making you feel unsafe now?: No Safety Concerns: Feels Safe At This Time Assistive Devices: None Review of Systems Review of Systems: All systems reviewed & are unremarkable except as noted in HPI & below Physical Exam Constitutional: WD/WN, vitals as above Neck: trachea midline Respiratory: normal respiratory effort, lungs clear to auscultation Cardiovascular: Rate/Rhythm: regular rate and regular rhythm Gastrointestinal (Abdomen): normal bowel sounds, soft, nontender, no hepatosplenomegaly Skin: no rashes, warm and dry Results & Data ([facility]) Vital Signs (Past 12 Hours) Vital Signs Temp Pulse Pulse Pulse Resp BP BP 01/12/22 14:00 53 L 21 01/12/22 13:00 56 L 17 01/12/22 12:42 55 L 28 H 01/12/22 12:42 137/78 01/12/22 11:46 36.6 C 67 28 H 01/12/22 06:59 36.8 C 59 L 16 121/67 01/12/22 05:00 37 C 48 L 18 125/74 01/12/22 04:50 37 C 48 L 18 125/74 01/12/22 04:16 50 L 16 133/73 01/12/22 04:00 61 16 125/70 BP Pulse Ox O2 Del Method 01/12/22 14:00 98 01/12/22 13:00 80 L 01/12/22 12:42 56 L 01/12/22 12:42 01/12/22 11:46 146/88 H 100 Room Air 01/12/22 06:59 98 Room Air 01/12/22 05:00 97 Room Air 01/12/22 04:50 97 Room Air 01/12/22 04:16 97 Room Air 01/12/22 04:00 96 Room Air Laboratory Results 01/12/22 01/12/22 01/11/22 Range/Units 10:18 10:18 23:57 WBC (4.8-10.8) K/ul RBC (4.63-6.08) M/uL Hgb (14.0-18.0) g/dl Hct (40.1-51.0) % MCV (80.0-100.0) fL MCH (25.0-34.0) pg MCHC (32.0-36.0) g/dL RDW Std Deviation (36.4-46.3) fL RDW Coeff of Daniella (11.5-14.5) % Plt Count (130-400) K/uL MPV (9.4-12.4) fL Immature Gran % (Auto) % Neut % (Auto) % Lymph % (Auto) % [place] % (Auto) % Eos % (Auto) % Baso % (Auto) % Neut # (Auto) (1.4-6.5) K/uL Lymph # (Auto) (1.2-3.4) K/uL [place] # (Auto) (0.24-0.82) K/uL Eos # (Auto) (0-0.50) K/uL Baso # (Auto) (0-0.2) K/uL Immature Gran # (Auto) (0.00-0.02) K/uL Sodium (136-145) mmol/L Potassium (3.5-5.1) mmol/L Chloride (98-107) mmol/L Carbon Dioxide (21-32) mmol/L Anion Gap (3-11) BUN (6-23) mg/dl Creatinine (0.6-1.4) mg/dl Est Cr Clr Drug Dosing ml/min Est GFR ( Amer) ml/min Est GFR (Non-Af Amer) ml/min BUN/Creatinine Ratio (10-20) Glucose (70-99(Fasting)) mg/dl Calcium (8.5-10.1) mg/dl Total Bilirubin (0.2-1.0) mg/dl AST (13-39) U/L ALT (7-52) U/L Alkaline Phosphatase (34-104) U/L Troponin I High Sens (0-20) pg/ml Total Protein (6.0-8.3) gm/dl Albumin (3.4-5.0) gm/dl Globulin (2.5-4.0) gm/dl Albumin/Globulin Ratio (0.9-2) Lipase (11-82) U/L Stl C. cayetanensis PCR Not Detected (NotDetected) Stool Rotavirus A PCR Not Detected (NotDetected) Stl Adenov F 40/41 PCR Not Detected (NotDetected) Stool Astrovirus (PCR) Not Detected (NotDetected) Stool Campylobacter PCR Not Detected (NotDetected) Stl C. diff Tox A/B PCR Not Detected (NotDetected) Stool Cryptosporidium PCR Not Detected (NotDetected) Stl E.coli Shiga Tox PCR Not Detected (NotDetected) Stl Enterotoxigenic E PCR Not Detected (NotDetected) Stool EPEC (PCR) DETECTED A* (NotDetected) Stool EAEC (PCR) Not Detected (NotDetected) Stl E. histolytica PCR Not Detected (NotDetected) Stool Giardia Lamblia PCR Not Detected (NotDetected) Stool Salmonella PCR Not Detected (NotDetected) Stool Sapovirus (PCR) Not Detected (NotDetected) Stl P. shigelloides PCR Not Detected (NotDetected) Stl Shigella/EIEC PCR Not Detected (NotDetected) St Y.enterocolitica PCR Not Detected (NotDetected) Stool Vibrio (PCR) Not Detected (NotDetected) Stl Vibrio cholerae PCR Not Detected (NotDetected) Stl Norovirus GI/GII PCR Not Detected (NotDetected) Urine Opiates Screen Neg (Neg) Ur Methadone, Qual Neg (Neg) Urine Barbiturates Neg (Neg) Ur Phencyclidine (PCP) Neg (Neg) U Amphetamin/Meth Scrn Neg (Neg) MDMA (Ecstasy) Screen Neg (Neg) U Benzodiazepines Scrn Neg (Neg) Ur Cocaine Metabolite Neg (Neg) U Marijuana (THC) Screen Neg (Neg) Ethyl Alcohol mg/dL (<10.0) mg/dl SARS-CoV-2, RNA, NAAT NEGATIVE (NEGATIVE) 01/11/22 01/11/22 01/11/22 Range/Units 23:14 23:14 23:14 WBC 6.95 (4.8-10.8) K/ul RBC 5.53 (4.63-6.08) M/uL Hgb 16.7 (14.0-18.0) g/dl Hct 47.9 (40.1-51.0) % MCV 86.6 (80.0-100.0) fL MCH 30.2 (25.0-34.0) pg MCHC 34.9 (32.0-36.0) g/dL RDW Std Deviation 38.5 (36.4-46.3) fL RDW Coeff of Daniella 12.0 (11.5-14.5) % Plt Count 205 (130-400) K/uL MPV 10.3 (9.4-12.4) fL Immature Gran % (Auto) 0.3 % Neut % (Auto) 83.6 % Lymph % (Auto) 11.1 % [place] % (Auto) 4.3 % Eos % (Auto) 0.1 % Baso % (Auto) 0.6 % Neut # (Auto) 5.81 (1.4-6.5) K/uL Lymph # (Auto) 0.77 L (1.2-3.4) K/uL [place] # (Auto) 0.30 (0.24-0.82) K/uL Eos # (Auto) 0.01 (0-0.50) K/uL Baso # (Auto) 0.04 (0-0.2) K/uL Immature Gran # (Auto) 0.02 (0.00-0.02) K/uL Sodium 138 (136-145) mmol/L Potassium 3.6 (3.5-5.1) mmol/L Chloride 104 (98-107) mmol/L Carbon Dioxide 21 (21-32) mmol/L Anion Gap 13 H (3-11) BUN 11 (6-23) mg/dl Creatinine 1.11 (0.6-1.4) mg/dl Est Cr Clr Drug Dosing 95.5 ml/min Est GFR ( Amer) 88.6 ml/min Est GFR (Non-Af Amer) 76.5 ml/min BUN/Creatinine Ratio 9.9 L (10-20) Glucose 121 H (70-99(Fasting)) mg/dl Calcium 9.1 (8.5-10.1) mg/dl Total Bilirubin 1.7 H D (0.2-1.0) mg/dl AST 17 (13-39) U/L ALT 9 (7-52) U/L Alkaline Phosphatase 48 (34-104) U/L Troponin I High Sens 5.5 (0-20) pg/ml Total Protein 7.1 (6.0-8.3) gm/dl Albumin 4.4 (3.4-5.0) gm/dl Globulin 2.7 (2.5-4.0) gm/dl Albumin/Globulin Ratio 1.6 (0.9-2) Lipase 14 (11-82) U/L Stl C. cayetanensis PCR (NotDetected) Stool Rotavirus A PCR (NotDetected) Stl Adenov F 40/41 PCR (NotDetected) Stool Astrovirus (PCR) (NotDetected) Stool Campylobacter PCR (NotDetected) Stl C. diff Tox A/B PCR (NotDetected) Stool Cryptosporidium PCR (NotDetected) Stl E.coli Shiga Tox PCR (NotDetected) Stl Enterotoxigenic E PCR (NotDetected) Stool EPEC (PCR) (NotDetected) Stool EAEC (PCR) (NotDetected) Stl E. histolytica PCR (NotDetected) Stool Giardia Lamblia PCR (NotDetected) Stool Salmonella PCR (NotDetected) Stool Sapovirus (PCR) (NotDetected) Stl P. shigelloides PCR (NotDetected) Stl Shigella/EIEC PCR (NotDetected) St Y.enterocolitica PCR (NotDetected) Stool Vibrio (PCR) (NotDetected) Stl Vibrio cholerae PCR (NotDetected) Stl Norovirus GI/GII PCR (NotDetected) Urine Opiates Screen (Neg) Ur Methadone, Qual (Neg) Urine Barbiturates (Neg) Ur Phencyclidine (PCP) (Neg) U Amphetamin/Meth Scrn (Neg) MDMA (Ecstasy) Screen (Neg) U Benzodiazepines Scrn (Neg) Ur Cocaine Metabolite (Neg) U Marijuana (THC) Screen (Neg) Ethyl Alcohol mg/dL < 10.0 (<10.0) mg/dl SARS-CoV-2, RNA, NAAT (NEGATIVE)
--- NOTE | 2022-01-12 20:35 | Billing Data ---
Date of Service January 12, 2022 Coding Level of Care Code INT OBSERVATION CARE 70M LVL 3
[2022-01-13] MEDS: ACETAMINOPHEN 1,000 MG/100 ML VIAL IV PRN (01:00)
[2022-01-13] MEDS: D5W AND LACTATED RINGERS 1,000 ML IV SCH ×3 (02:05→19:59)
[2022-01-13] MEDS ORDERED: IBUPROFEN 600 MG TAB PO STA (03:37)
[2022-01-13 05:40] LABS: INR 1.2 (0.9-1.1); Prothrombin Time 12.3 Seconds (9.0-12.0)
[2022-01-13 05:50] LABS: Albumin Globulin Ratio 1.8 (0.9-2); Albumin Level 3.7 gm/dl (3.4-5.0); Bilirubin,Total 1.4 mg/dl (0.2-1.0); Calcium 8.2 mg/dl (8.5-10.1); Creatinine Clr Calc Pharmacy 107.1 ml/min; Est GFR (African American) 101.8 ml/min; Est GFR (Non-African American) 87.8 ml/min; Globulin 2.1 gm/dl (2.5-4.0); Magnesium 2.1 mg/dl (1.7-2.4); Phosphorus 2.3 mg/dl (2.5-4.9); Potassium 3.6 mmol/L (3.5-5.1); Total Protein 5.8 gm/dl (6.0-8.3)
[2022-01-13 07:03] LABS: Hematocrit (blood only) 44.8 % (40.1-51.0); Hemoglobin 15.4 g/dl (14.0-18.0); Mean Corpuscular Hemoglobin 30.3 pg (25.0-34.0); Mean Corpuscular Hgb Conc 34.4 g/dL (32.0-36.0); RDW Coefficient of Variation 12.2 % (11.5-14.5); RDW Standard Deviation 39.2 fL (36.4-46.3); Red Blood Count 5.09 M/uL (4.63-6.08); White Blood Count 4.29 K/ul (4.8-10.8)
[2022-01-13 07:12] LABS: Basophils # (auto) 0.03 K/uL (0-0.2); Basophils % (auto) 0.7 %; Eosinophils # (auto) 0.03 K/uL (0-0.50); Eosinophils % (auto) 0.7 %; Immature Granulocytes # (auto) 0.01 K/uL (0.00-0.02); Immature Granulocytes % (auto) 0.2 %; Lymphocytes # (auto) 1.49 K/uL (1.2-3.4); Lymphocytes % (auto) 34.7 %; Mean Platelet Volume 11.1 fL (9.4-12.4); Monocytes # (auto) 0.34 K/uL (0.24-0.82); Monocytes % (auto) 7.9 %; Neutrophils # (auto) 2.39 K/uL (1.4-6.5); Neutrophils % (auto) 55.8 %
[2022-01-13] MEDS ORDERED: DICYCLOMINE HCL 10 MG CAP PO PRN (07:19)
[2022-01-13 07:30] LABS: Platelet Count 145 K/uL (130-400)
[2022-01-13] MEDS ORDERED: PHYTONADIONE 5 MG TAB PO STA (07:44)
[2022-01-13] MEDS ORDERED: ACETAMINOPHEN 500 MG TAB PO PRN (07:47)
[2022-01-13] MEDS ORDERED: PANTOprazole 40 MG TAB PO SCH (09:00)
[2022-01-13] MEDS: ONDANSETRON INJ 2 MG/ML 2 ML VIAL IV PRN (10:22)
[2022-01-13] MEDS ORDERED: ONDANSETRON INJ 2 MG/ML 2 ML VIAL IV PRN (12:53)
[2022-01-13] MEDS ORDERED: fentaNYL citrate 100 MCG/2 ML VIAL IV STA (12:55)
[2022-01-13] MEDS ORDERED: PROCHLORPERAZINE 10 MG in SYRINGE 8 ML IV PRN (13:48)
[2022-01-13] MEDS ORDERED: PANTOprazole 40 MG in SYRINGE 0 ML IV ONE (14:13)
[2022-01-13] MEDS: METOCLOPRAMIDE HCL INJ 5 MG/ML 2 ML VIAL IV PRN (14:18)
[2022-01-13] MEDS ORDERED: OPTIRAY 300 100mL IV ONE (15:23)
--- NOTE | 2022-01-13 15:41 | Hospitalist Progress Note ---
Date of Service January 13, 2022 Assessment & Plan (1) Diarrhea: Plan: Epic E. coli inducedsupportive care; currently no role for antibiotics (2) Abdominal pain, epigastric: Plan: Severe while initially attributed to #1 (E. coli infection) appears out of proportion; GI consulted Yesterday HIDA was ordered but after E. coli isolated considered diagnosis of abdominal symptoms was clear and hence canceled; Severe writhing pain at times-repeat CT scan GI already consulted and from their perspective outpatient work-up Will consider surgery consult depending on course Resumed IV fluids (3) GERD (gastroesophageal reflux disease): Plan: Given epigastric location differential includes ulcer diseaseIV PPI again (4) Nausea: Plan: Severe associated with #2symptomatic treatment (5) Elevated bilirubin: Plan: Uncertain significance; at present await repeat imaging Will consider HIDA Plan Can observe mild leukopenia, minimally decreased phosphate, tendency to bradycardia; noted minimally elevated INRconsider possibly related to poor intake; empiric vitamin K given If persists might need to consider checking PT with mix Admission and Anticipated Discharge Date Admission Date: January 12, 2022 Subjective Follow-up of presentation with diarrhea, nauseayesterday severe abdominal pain requiring fentanyl; improved after single dose and work-up showed enteropathogenic E. coli; today much better early a.m. but after taking some p.o. severe recurrence of upper abdominal knot-like pain Physical Exam Physical Exam: Constitutional and general: In distress with pain, looks biologic age Head and face: No puffiness, atraumatic Eyes: No scleral icterus, extraocular movements normal Neck: Supple, no JVD Musculoskeletal: No acute joint swelling, no bony abnormalities Skin/dermatologic/integument: No rash, no purpura Hematologic and lymphatic: pallor none, no petechia Gastrointestinal/abdomen: Prominent tenderness epigastrium Neurologic: Cranial nerves intact, nonfocal Psychiatry: Awake, alert, pleasant, communicative Cardiovascular: Heart rhythm regular, no rub, no murmur, no gallop Respiratory: Chest movements equal, no use of accessory muscles, no adventitious sounds Extremities: No edema, no cyanosis Results & Data Results & Data ([facility]) Vital Signs (Past 12 Hours) Vital Signs Temp Pulse Pulse Resp BP Pulse Ox O2 Del Method 01/13/22 08:00 57 L 01/13/22 04:00 37.2 C 52 L 14 137/71 96 Room Air Laboratory Results Laboratory Results - last 24 hr 01/12/22 01/13/22 01/13/22 13:00 05:14 05:14 WBC RBC Hgb Hct MCV MCH MCHC RDW Std Deviation RDW Coeff of Daniella Plt Count MPV Immature Gran % (Auto) Neut % (Auto) Lymph % (Auto) [place] % (Auto) Eos % (Auto) Baso % (Auto) Neut # (Auto) Lymph # (Auto) [place] # (Auto) Eos # (Auto) Baso # (Auto) Immature Gran # (Auto) PT 12.3 H INR 1.2 H Sodium 139 Potassium 3.6 Chloride 108 H Carbon Dioxide 25 Anion Gap 6 BUN 8 Creatinine 0.99 Est Cr Clr Drug Dosing 107.1 Est GFR ( Amer) 101.8 Est GFR (Non-Af Amer) 87.8 Fasting Glucose 113 H Calcium 8.2 L Phosphorus 2.3 L Magnesium 2.1 Total Bilirubin 1.4 H AST 18 ALT 7 Alkaline Phosphatase 39 Total Protein 5.8 L Albumin 3.7 Globulin 2.1 L Albumin/Globulin Ratio 1.8 Triglycerides 82 Cholesterol 170 LDL Cholesterol, Calc 120 VLDL Cholesterol, Calc 16 HDL Cholesterol 34 Cholesterol/HDL Ratio 5.0 Lipase Nasal Screen MRSA (PCR) Negative 01/13/22 01/13/22 05:14 14:31 WBC 4.29 L RBC 5.09 Hgb 15.4 Hct 44.8 MCV 88.0 MCH 30.3 MCHC 34.4 RDW Std Deviation 39.2 RDW Coeff of Daniella 12.2 Plt Count 145 MPV 11.1 Immature Gran % (Auto) 0.2 Neut % (Auto) 55.8 Lymph % (Auto) 34.7 [place] % (Auto) 7.9 Eos % (Auto) 0.7 Baso % (Auto) 0.7 Neut # (Auto) 2.39 Lymph # (Auto) 1.49 [place] # (Auto) 0.34 Eos # (Auto) 0.03 Baso # (Auto) 0.03 Immature Gran # (Auto) 0.01 PT INR Sodium Potassium Chloride Carbon Dioxide Anion Gap BUN Creatinine Est Cr Clr Drug Dosing Est GFR ( Amer) Est GFR (Non-Af Amer) Fasting Glucose Calcium Phosphorus Magnesium Total Bilirubin AST ALT Alkaline Phosphatase Total Protein Albumin Globulin Albumin/Globulin Ratio Triglycerides Cholesterol LDL Cholesterol, Calc VLDL Cholesterol, Calc HDL Cholesterol Cholesterol/HDL Ratio Lipase 10 L Nasal Screen MRSA (PCR) PG Care Time/CCT Total # of Minutes Spent Total Time Spent with Patient: Total time spent is greater than 50% in coordination of care (as documented) at patient's floor/unit and/or counseling patient: Coding Level of Care Code 75737 Subseq Hosp Care Lvl 3 Diagnoses Diarrhea R19.7 Abdominal pain, epigastric R10.13 GERD (gastroesophageal reflux disease) K21.9 Nausea R11.0 Elevated bilirubin R17
--- NOTE | 2022-01-13 15:47 | CT Scan Report ---
CT SCAN OF THE ABDOMEN AND PELVIS WITH IV CONTRAST CLINICAL HISTORY: Generalized abdominal pain. COMPARISON STUDY: Abdominal CT dated 01/11/2022. TECHNIQUE: Following the IV administration of 85 cc of Optiray 300, CT scan of the abdomen and pelvi s is performed from the lung bases to the proximal femora. Images are reviewed in the axial, sagittal , and coronal planes. IV contrast was administered without complication. A dose lowering technique wa s utilized adhering to the principles of ALARA. CT DOSE: 551.35 mGy.cm FINDINGS: Lung bases: The heart is normal in size and without pericardial effusion. The lung bases are clear no ting dependent atelectasis. Liver: The contrast-enhanced liver is normal in size, contour, and attenuation. There is no intrahepa tic biliary ductal dilatation. The hepatic veins and portal veins are patent. Gallbladder: Unremarkable. Spleen: Normal in size and attenuation. Pancreas: Unremarkable. Adrenal glands: Unremarkable. Kidneys: The contrast enhanced kidneys are normal in size and without hydronephrosis. The kidneys enh ance symmetrically. Abdominal vasculature: The abdominal aorta is normal in course and caliber. Bowel: There is no bowel obstruction. There are scattered colonic diverticula without CT evidence of acute diverticulitis. The appendix is well-visualized and normal. Peritoneum: There is no intraperitoneal free air or abdominal ascites. Lymphadenopathy: None. Pelvic viscera: The bladder, prostate, and seminal vesicles are normal as visualized. Surgical clips are noted along the spermatic cord bilaterally. Skeletal structures: No lytic or blastic lesions are seen. IMPRESSION: No acute infectious or inflammatory findings are identified in the abdomen or pelvis. No change from 01/11/2022. ACT 112: Negative or not required by law. Electronically signed by: Emanuel Reece M.D. 01/13/2022 3:45 PM
[2022-01-13] MEDS ORDERED: fentaNYL citrate 100 MCG/2 ML VIAL IV PRN (16:00)
[2022-01-13] MEDS: PANTOprazole 40 MG in SYRINGE 0 ML IV SCH (19:54)
--- NOTE | 2022-01-13 20:09 | Emergency Department Note ---
Impression & Plan Intractable epigastric abdominal pain, History of acute pancreatitis ED Provider Note CHIEF COMPLAINT: Abdominal pain HISTORY OF PRESENT ILLNESS: This 51-year-old male patient presents to the emergency department with complaints of diffuse epigastric abdominal pain. The patient states he has been diagnosed with pancreatitis in the past. He states the pain is severe. He was evaluated in this emergency department earlier today, complete with a CAT scan. He states he was told his work-up was fairly negative. He was feeling better after a GI cocktail and IV Dilaudid. Patient states he went home and experienced some "side effects" of the Dilaudid such as hallucinations and facial numbness. The pain then became severe in the abdomen once again. Due to to his history of pancreatitis, he is concerned that this may be developing. He denies any history of GI bleeding, heavy drinking or trauma to the abdomen. He does still have his gallbladder. He did not have anything heavy to eat recently. REVIEW OF SYSTEMS: A review of systems was performed with positives and pertinent negatives listed in the history of present illness. 10 systems were reviewed and are otherwise negative. ALLERGIES: see below MEDICATIONS: see below PMH: see below SOCIAL HISTORY: see below DDx: Appendicitis, diverticulitis, UTI, obstruction, mesenteric ischemia, aortic pathology, inflammatory bowel disease, renal colic, PUD, pancreatitis, biliary pathology, hernia, volvulus, constipation, as well as other pathologies. PHYSICAL EXAM: Vital signs reviewed. General: Well-appearing 51 yo male, in no significant distress. HEENT: No scleral icterus, PERRLA, neck supple. Atraumatic. Cardiovascular: Regular rate and rhythm, no extra sounds. Pulmonary: Clear to auscultation bilaterally, normal work of breathing. Abdomen: Soft, tender to palpation to epigastric region, nondistended, positive bowel sounds. Musculoskeletal: Atraumatic, no peripheral edema. Neurologic: Patient awake alert and oriented x 3 Skin: Warm, dry, no rash EMERGENCY DEPARTMENT COURSE/MDM: This patient was evaluated and appeared to be in no significant distress. IV access was obtained and laboratory work was drawn. The patient was medicated with IV fentanyl and Zofran with significant relief of his discomfort. Laboratory work reveals no evidence of significant abnormality. H&H has remained stable. WBC is within normal limits. The patient's TBili is 1.7. Multiple CAT scans have been performed of the abdomen recently. Lipase is normal. I do not feel repeat CT is necessary at this time. The patient has been hydrated with normal saline solution and was feeling much improved. He was given a second dose of IV Dilaudid and the case was discussed with the hospitalist service for further management. Patient has been made aware and agrees. MONITORING: An order for cardiac monitoring was placed and the patient is noted to be in a NSR at 56 beats per minute. RADIOLOGY: see below EKG: Sinus rhythm at 65 bpm. QTc is 438. Poor quality baseline for interpretation however no significant ST-T segment change is noted. No PVC, no PAC. When compared to previous dated May 08, 2021. T wave inversion is no longer evident in the anterior leads. DISPOSITION: Admission Past Med/Surg History Medical History Cervical stenosis of spinal canal (06/09/14) COVID-19 GERD (gastroesophageal reflux disease) Pancreatitis Surgical History H/O arthroscopy H/O nasal septoplasty H/O sinus surgery History of neck surgery Family History Other Breast cancer Diabetes Denies family history of Coronary heart disease Colorectal cancer Social History Smoking Status: Never smoker Second Hand Exposure: No; Hx Alcohol Use: No Hx Substance Use: No Preferred Language: Tanzanian Communication Ability: Effective Visual Impairment: No Limitations Hearing Ability: Normal Torpedo Shooter Required: No Beliefs That Will Affect Care: None marital status: Current Living Situation: Spouse Current Living Situation Comment: current occupational status: employed current occupation: [employer] How many Children do You have: 1 Feels Safe at Home: No Is there a partner from a previous relationship who is making you feel unsafe now?: No Safety Concerns: Feels Safe At This Time Assistive Devices: None Allergies Allergies Allergy/AdvReac Type Severity Reaction Status Date / Time ciprofloxacin Allergy Severe SEVERLY ILL Verified 01/12/22 11:00 morphine Allergy Severe Redness of Verified 01/12/22 11:00 Skin Quinolones Allergy Unknown Unknown Verified 01/12/22 02:26 hydromorphone [From Dilaudid] AdvReac Intermediate Difficulty Verified 01/12/22 11:01 Breathing dexamethasone AdvReac Unknown Verified 01/12/22 11:00 Home Meds Home Medications Medication Instructions Recorded Confirmed acetaminophen 500 mg tablet 500 mg PO Q6H PRN Pain, Moderate 05/04/21 01/12/22 omeprazole 20 mg tablet,delayed 10 mg PO DAILY 01/12/22 01/12/22 release Previous Rx's Medication Instructions Recorded ondansetron 4 mg disintegrating 4 mg PO Q8H PRN nausea and 01/11/22 tablet vomiting 5 days #15 tabs Results & Data (ED) Vital Signs Vital Signs - 24 hr 01/13/22 04:00 01/13/22 08:00 01/13/22 08:00 Temperature 37.2 C 36.9 C Temperature Source Oral Oral Pulse Rate 57 L Pulse Rate [Apical] 52 L Pulse Rate from SpO2 Sensor Pulse Rhythm [Apical] Regular Pulse Strength [Apical] Normal Respiratory Rate 14 Respiratory Effort / Characteristics Non-Labored Spontaneous Respiratory Depth Normal Respiratory Pattern Regular Blood Pressure Blood Pressure [Right Arm] 137/71 Blood Pressure Mean Blood Pressure Mean [Right Arm] 93 Blood Pressure Position [Right Arm] Lying Pulse Oximetry 96 Oxygen Delivery Method Room Air 01/13/22 07:00 01/13/22 07:44 01/13/22 07:44 Temperature Temperature Source Pulse Rate 73 55 L Pulse Rate [Apical] Pulse Rate from SpO2 Sensor 63 55 L Pulse Rhythm [Apical] Pulse Strength [Apical] Respiratory Rate 26 H 17 Respiratory Effort / Characteristics Respiratory Depth Respiratory Pattern Blood Pressure 150/94 H Blood Pressure [Right Arm] Blood Pressure Mean 117 Blood Pressure Mean [Right Arm] Blood Pressure Position [Right Arm] Pulse Oximetry 97 98 Oxygen Delivery Method 01/13/22 08:00 01/13/22 09:00 01/13/22 10:00 Temperature Temperature Source Pulse Rate 49 L 60 62 Pulse Rate [Apical] Pulse Rate from SpO2 Sensor 50 L 60 57 L Pulse Rhythm [Apical] Pulse Strength [Apical] Respiratory Rate 10 L 17 16 Respiratory Effort / Characteristics Respiratory Depth Respiratory Pattern Blood Pressure Blood Pressure [Right Arm] Blood Pressure Mean Blood Pressure Mean [Right Arm] Blood Pressure Position [Right Arm] Pulse Oximetry 96 94 97 Oxygen Delivery Method 01/13/22 11:00 01/13/22 12:09 01/13/22 13:00 Temperature Temperature Source Pulse Rate 65 53 L Pulse Rate [Apical] Pulse Rate from SpO2 Sensor 66 65 53 L Pulse Rhythm [Apical] Pulse Strength [Apical] Respiratory Rate 21 11 L 17 Respiratory Effort / Characteristics Respiratory Depth Respiratory Pattern Blood Pressure Blood Pressure [Right Arm] Blood Pressure Mean Blood Pressure Mean [Right Arm] Blood Pressure Position [Right Arm] Pulse Oximetry 96 99 99 Oxygen Delivery Method 01/13/22 13:12 01/13/22 13:12 01/13/22 13:35 Temperature Temperature Source Pulse Rate 56 L Pulse Rate [Apical] Pulse Rate from SpO2 Sensor 56 L Pulse Rhythm [Apical] Pulse Strength [Apical] Respiratory Rate 15 Respiratory Effort / Characteristics Respiratory Depth Respiratory Pattern Blood Pressure 172/83 H 150/85 H Blood Pressure [Right Arm] Blood Pressure Mean 115 93 Blood Pressure Mean [Right Arm] Blood Pressure Position [Right Arm] Pulse Oximetry 96 Oxygen Delivery Method 01/13/22 13:35 01/13/22 14:00 01/13/22 15:00 Temperature Temperature Source Pulse Rate 50 L 60 55 L Pulse Rate [Apical] Pulse Rate from SpO2 Sensor 51 L 60 55 L Pulse Rhythm [Apical] Pulse Strength [Apical] Respiratory Rate 16 18 18 Respiratory Effort / Characteristics Respiratory Depth Respiratory Pattern Blood Pressure Blood Pressure [Right Arm] Blood Pressure Mean Blood Pressure Mean [Right Arm] Blood Pressure Position [Right Arm] Pulse Oximetry 97 99 96 Oxygen Delivery Method 01/13/22 15:39 01/13/22 15:39 01/13/22 12:00 Temperature 36.9 C Temperature Source Oral Pulse Rate 60 Pulse Rate [Apical] Pulse Rate from SpO2 Sensor 58 L Pulse Rhythm [Apical] Pulse Strength [Apical] Respiratory Rate 17 Respiratory Effort / Characteristics Respiratory Depth Respiratory Pattern Blood Pressure 158/87 H Blood Pressure [Right Arm] Blood Pressure Mean 96 Blood Pressure Mean [Right Arm] Blood Pressure Position [Right Arm] Pulse Oximetry 97 Oxygen Delivery Method Home Medications Current Medication List: was personally reviewed by me Laboratory Data Attestation: I reviewed the patient's lab results. Result diagrams: 01/13/22 05:14 01/13/22 05:14 Lab Results 01/11/22 01/11/22 01/11/22 Range/Units 23:14 23:14 23:14 WBC 6.95 (4.8-10.8) K/ul RBC 5.53 (4.63-6.08) M/uL Hgb 16.7 (14.0-18.0) g/dl Hct 47.9 (40.1-51.0) % MCV 86.6 (80.0-100.0) fL MCH 30.2 (25.0-34.0) pg MCHC 34.9 (32.0-36.0) g/dL RDW Std Deviation 38.5 (36.4-46.3) fL RDW Coeff of Daniella 12.0 (11.5-14.5) % Plt Count 205 (130-400) K/uL MPV 10.3 (9.4-12.4) fL Immature Gran % (Auto) 0.3 % Neut % (Auto) 83.6 % Lymph % (Auto) 11.1 % Haywood % (Auto) 4.3 % Eos % (Auto) 0.1 % Baso % (Auto) 0.6 % Neut # (Auto) 5.81 (1.4-6.5) K/uL Lymph # (Auto) 0.77 L (1.2-3.4) K/uL Haywood # (Auto) 0.30 (0.24-0.82) K/uL Eos # (Auto) 0.01 (0-0.50) K/uL Baso # (Auto) 0.04 (0-0.2) K/uL Immature Gran # (Auto) 0.02 (0.00-0.02) K/uL PT (9.0-12.0) Seconds INR (0.9-1.1) Sodium 138 (136-145) mmol/L Potassium 3.6 (3.5-5.1) mmol/L Chloride 104 (98-107) mmol/L Carbon Dioxide 21 (21-32) mmol/L Anion Gap 13 H (3-11) BUN 11 (6-23) mg/dl Creatinine 1.11 (0.6-1.4) mg/dl Est Cr Clr Drug Dosing 95.5 ml/min Est GFR ( Amer) 88.6 ml/min Est GFR (Non-Af Amer) 76.5 ml/min BUN/Creatinine Ratio 9.9 L (10-20) Glucose 121 H (70-99(Fasting)) mg/dl Fasting Glucose (70-99) mg/dl Calcium 9.1 (8.5-10.1) mg/dl Phosphorus (2.5-4.9) mg/dl Magnesium (1.7-2.4) mg/dl Total Bilirubin 1.7 H D (0.2-1.0) mg/dl AST 17 (13-39) U/L ALT 9 (7-52) U/L Alkaline Phosphatase 48 (34-104) U/L Troponin I High Sens 5.5 (0-20) pg/ml Total Protein 7.1 (6.0-8.3) gm/dl Albumin 4.4 (3.4-5.0) gm/dl Globulin 2.7 (2.5-4.0) gm/dl Albumin/Globulin Ratio 1.6 (0.9-2) Triglycerides (0-150) mg/dl Cholesterol (0-200) mg/dl LDL Cholesterol, Calc mg/dl VLDL Cholesterol, Calc (0-30) mg/dl HDL Cholesterol mg/dl Cholesterol/HDL Ratio (0-5) Lipase 14 (11-82) U/L Nasal Screen MRSA (PCR) (Negative) Stl C. cayetanensis PCR (NotDetected) Stool Rotavirus A PCR (NotDetected) Stl Adenov F 40/41 PCR (NotDetected) Stool Astrovirus (PCR) (NotDetected) Stool Campylobacter PCR (NotDetected) Stl C. diff Tox A/B PCR (NotDetected) Stool Cryptosporidium PCR (NotDetected) Stl E.coli Shiga Tox PCR (NotDetected) Stl Enterotoxigenic E PCR (NotDetected) Stool EPEC (PCR) (NotDetected) Stool EAEC (PCR) (NotDetected) Stl E. histolytica PCR (NotDetected) Stool Giardia Lamblia PCR (NotDetected) Stool Salmonella PCR (NotDetected) Stool Sapovirus (PCR) (NotDetected) Stl P. shigelloides PCR (NotDetected) Stl Shigella/EIEC PCR (NotDetected) St Y.enterocolitica PCR (NotDetected) Stool Vibrio (PCR) (NotDetected) Stl Vibrio cholerae PCR (NotDetected) Stl Norovirus GI/GII PCR (NotDetected) Urine Opiates Screen (Neg) Ur Methadone, Qual (Neg) Urine Barbiturates (Neg) Ur Phencyclidine (PCP) (Neg) U Amphetamin/Meth Scrn (Neg) MDMA (Ecstasy) Screen (Neg) U Benzodiazepines Scrn (Neg) Ur Cocaine Metabolite (Neg) U Marijuana (THC) Screen (Neg) Ethyl Alcohol mg/dL < 10.0 (<10.0) mg/dl SARS-CoV-2, RNA, NAAT (NEGATIVE) 01/11/22 01/12/22 01/12/22 Range/Units 23:57 10:18 10:18 WBC (4.8-10.8) K/ul RBC (4.63-6.08) M/uL Hgb (14.0-18.0) g/dl Hct (40.1-51.0) % MCV (80.0-100.0) fL MCH (25.0-34.0) pg MCHC (32.0-36.0) g/dL RDW Std Deviation (36.4-46.3) fL RDW Coeff of Daniella (11.5-14.5) % Plt Count (130-400) K/uL MPV (9.4-12.4) fL Immature Gran % (Auto) % Neut % (Auto) % Lymph % (Auto) % Haywood % (Auto) % Eos % (Auto) % Baso % (Auto) % Neut # (Auto) (1.4-6.5) K/uL Lymph # (Auto) (1.2-3.4) K/uL Haywood # (Auto) (0.24-0.82) K/uL Eos # (Auto) (0-0.50) K/uL Baso # (Auto) (0-0.2) K/uL Immature Gran # (Auto) (0.00-0.02) K/uL PT (9.0-12.0) Seconds INR (0.9-1.1) Sodium (136-145) mmol/L Potassium (3.5-5.1) mmol/L Chloride (98-107) mmol/L Carbon Dioxide (21-32) mmol/L Anion Gap (3-11) BUN (6-23) mg/dl Creatinine (0.6-1.4) mg/dl Est Cr Clr Drug Dosing ml/min Est GFR ( Amer) ml/min Est GFR (Non-Af Amer) ml/min BUN/Creatinine Ratio (10-20) Glucose (70-99(Fasting)) mg/dl Fasting Glucose (70-99) mg/dl Calcium (8.5-10.1) mg/dl Phosphorus (2.5-4.9) mg/dl Magnesium (1.7-2.4) mg/dl Total Bilirubin (0.2-1.0) mg/dl AST (13-39) U/L ALT (7-52) U/L Alkaline Phosphatase (34-104) U/L Troponin I High Sens (0-20) pg/ml Total Protein (6.0-8.3) gm/dl Albumin (3.4-5.0) gm/dl Globulin (2.5-4.0) gm/dl Albumin/Globulin Ratio (0.9-2) Triglycerides (0-150) mg/dl Cholesterol (0-200) mg/dl LDL Cholesterol, Calc mg/dl VLDL Cholesterol, Calc (0-30) mg/dl HDL Cholesterol mg/dl Cholesterol/HDL Ratio (0-5) Lipase (11-82) U/L Nasal Screen MRSA (PCR) (Negative) Stl C. cayetanensis PCR Not Detected (NotDetected) Stool Rotavirus A PCR Not Detected (NotDetected) Stl Adenov F 40/41 PCR Not Detected (NotDetected) Stool Astrovirus (PCR) Not Detected (NotDetected) Stool Campylobacter PCR Not Detected (NotDetected) Stl C. diff Tox A/B PCR Not Detected (NotDetected) Stool Cryptosporidium PCR Not Detected (NotDetected) Stl E.coli Shiga Tox PCR Not Detected (NotDetected) Stl Enterotoxigenic E PCR Not Detected (NotDetected) Stool EPEC (PCR) DETECTED A* (NotDetected) Stool EAEC (PCR) Not Detected (NotDetected) Stl E. histolytica PCR Not Detected (NotDetected) Stool Giardia Lamblia PCR Not Detected (NotDetected) Stool Salmonella PCR Not Detected (NotDetected) Stool Sapovirus (PCR) Not Detected (NotDetected) Stl P. shigelloides PCR Not Detected (NotDetected) Stl Shigella/EIEC PCR Not Detected (NotDetected) St Y.enterocolitica PCR Not Detected (NotDetected) Stool Vibrio (PCR) Not Detected (NotDetected) Stl Vibrio cholerae PCR Not Detected (NotDetected) Stl Norovirus GI/GII PCR Not Detected (NotDetected) Urine Opiates Screen Neg (Neg) Ur Methadone, Qual Neg (Neg) Urine Barbiturates Neg (Neg) Ur Phencyclidine (PCP) Neg (Neg) U Amphetamin/Meth Scrn Neg (Neg) MDMA (Ecstasy) Screen Neg (Neg) U Benzodiazepines Scrn Neg (Neg) Ur Cocaine Metabolite Neg (Neg) U Marijuana (THC) Screen Neg (Neg) Ethyl Alcohol mg/dL (<10.0) mg/dl SARS-CoV-2, RNA, NAAT NEGATIVE (NEGATIVE) 01/12/22 01/13/22 01/13/22 Range/Units 13:00 05:14 05:14 WBC (4.8-10.8) K/ul RBC (4.63-6.08) M/uL Hgb (14.0-18.0) g/dl Hct (40.1-51.0) % MCV (80.0-100.0) fL MCH (25.0-34.0) pg MCHC (32.0-36.0) g/dL RDW Std Deviation (36.4-46.3) fL RDW Coeff of Daniella (11.5-14.5) % Plt Count (130-400) K/uL MPV (9.4-12.4) fL Immature Gran % (Auto) % Neut % (Auto) % Lymph % (Auto) % Haywood % (Auto) % Eos % (Auto) % Baso % (Auto) % Neut # (Auto) (1.4-6.5) K/uL Lymph # (Auto) (1.2-3.4) K/uL Haywood # (Auto) (0.24-0.82) K/uL Eos # (Auto) (0-0.50) K/uL Baso # (Auto) (0-0.2) K/uL Immature Gran # (Auto) (0.00-0.02) K/uL PT 12.3 H (9.0-12.0) Seconds INR 1.2 H (0.9-1.1) Sodium 139 (136-145) mmol/L Potassium 3.6 (3.5-5.1) mmol/L Chloride 108 H (98-107) mmol/L Carbon Dioxide 25 (21-32) mmol/L Anion Gap 6 (3-11) BUN 8 (6-23) mg/dl Creatinine 0.99 (0.6-1.4) mg/dl Est Cr Clr Drug Dosing 107.1 ml/min Est GFR ( Amer) 101.8 ml/min Est GFR (Non-Af Amer) 87.8 ml/min BUN/Creatinine Ratio (10-20) Glucose (70-99(Fasting)) mg/dl Fasting Glucose 113 H (70-99) mg/dl Calcium 8.2 L (8.5-10.1) mg/dl Phosphorus 2.3 L (2.5-4.9) mg/dl Magnesium 2.1 (1.7-2.4) mg/dl Total Bilirubin 1.4 H (0.2-1.0) mg/dl AST 18 (13-39) U/L ALT 7 (7-52) U/L Alkaline Phosphatase 39 (34-104) U/L Troponin I High Sens (0-20) pg/ml Total Protein 5.8 L (6.0-8.3) gm/dl Albumin 3.7 (3.4-5.0) gm/dl Globulin 2.1 L (2.5-4.0) gm/dl Albumin/Globulin Ratio 1.8 (0.9-2) Triglycerides 82 (0-150) mg/dl Cholesterol 170 (0-200) mg/dl LDL Cholesterol, Calc 120 mg/dl VLDL Cholesterol, Calc 16 (0-30) mg/dl HDL Cholesterol 34 mg/dl Cholesterol/HDL Ratio 5.0 (0-5) Lipase (11-82) U/L Nasal Screen MRSA (PCR) Negative (Negative) Stl C. cayetanensis PCR (NotDetected) Stool Rotavirus A PCR (NotDetected) Stl Adenov F 40/41 PCR (NotDetected) Stool Astrovirus (PCR) (NotDetected) Stool Campylobacter PCR (NotDetected) Stl C. diff Tox A/B PCR (NotDetected) Stool Cryptosporidium PCR (NotDetected) Stl E.coli Shiga Tox PCR (NotDetected) Stl Enterotoxigenic E PCR (NotDetected) Stool EPEC (PCR) (NotDetected) Stool EAEC (PCR) (NotDetected) Stl E. histolytica PCR (NotDetected) Stool Giardia Lamblia PCR (NotDetected) Stool Salmonella PCR (NotDetected) Stool Sapovirus (PCR) (NotDetected) Stl P. shigelloides PCR (NotDetected) Stl Shigella/EIEC PCR (NotDetected) St Y.enterocolitica PCR (NotDetected) Stool Vibrio (PCR) (NotDetected) Stl Vibrio cholerae PCR (NotDetected) Stl Norovirus GI/GII PCR (NotDetected) Urine Opiates Screen (Neg) Ur Methadone, Qual (Neg) Urine Barbiturates (Neg) Ur Phencyclidine (PCP) (Neg) U Amphetamin/Meth Scrn (Neg) MDMA (Ecstasy) Screen (Neg) U Benzodiazepines Scrn (Neg) Ur Cocaine Metabolite (Neg) U Marijuana (THC) Screen (Neg) Ethyl Alcohol mg/dL (<10.0) mg/dl SARS-CoV-2, RNA, NAAT (NEGATIVE) 01/13/22 01/13/22 Range/Units 05:14 14:31 WBC 4.29 L (4.8-10.8) K/ul RBC 5.09 (4.63-6.08) M/uL Hgb 15.4 (14.0-18.0) g/dl Hct 44.8 (40.1-51.0) % MCV 88.0 (80.0-100.0) fL MCH 30.3 (25.0-34.0) pg MCHC 34.4 (32.0-36.0) g/dL RDW Std Deviation 39.2 (36.4-46.3) fL RDW Coeff of Daniella 12.2 (11.5-14.5) % Plt Count 145 (130-400) K/uL MPV 11.1 (9.4-12.4) fL Immature Gran % (Auto) 0.2 % Neut % (Auto) 55.8 % Lymph % (Auto) 34.7 % Haywood % (Auto) 7.9 % Eos % (Auto) 0.7 % Baso % (Auto) 0.7 % Neut # (Auto) 2.39 (1.4-6.5) K/uL Lymph # (Auto) 1.49 (1.2-3.4) K/uL Haywood # (Auto) 0.34 (0.24-0.82) K/uL Eos # (Auto) 0.03 (0-0.50) K/uL Baso # (Auto) 0.03 (0-0.2) K/uL Immature Gran # (Auto) 0.01 (0.00-0.02) K/uL PT (9.0-12.0) Seconds INR (0.9-1.1) Sodium (136-145) mmol/L Potassium (3.5-5.1) mmol/L Chloride (98-107) mmol/L Carbon Dioxide (21-32) mmol/L Anion Gap (3-11) BUN (6-23) mg/dl Creatinine (0.6-1.4) mg/dl Est Cr Clr Drug Dosing ml/min Est GFR ( Amer) ml/min Est GFR (Non-Af Amer) ml/min BUN/Creatinine Ratio (10-20) Glucose (70-99(Fasting)) mg/dl Fasting Glucose (70-99) mg/dl Calcium (8.5-10.1) mg/dl Phosphorus (2.5-4.9) mg/dl Magnesium (1.7-2.4) mg/dl Total Bilirubin (0.2-1.0) mg/dl AST (13-39) U/L ALT (7-52) U/L Alkaline Phosphatase (34-104) U/L Troponin I High Sens (0-20) pg/ml Total Protein (6.0-8.3) gm/dl Albumin (3.4-5.0) gm/dl Globulin (2.5-4.0) gm/dl Albumin/Globulin Ratio (0.9-2) Triglycerides (0-150) mg/dl Cholesterol (0-200) mg/dl LDL Cholesterol, Calc mg/dl VLDL Cholesterol, Calc (0-30) mg/dl HDL Cholesterol mg/dl Cholesterol/HDL Ratio (0-5) Lipase 10 L (11-82) U/L Nasal Screen MRSA (PCR) (Negative) Stl C. cayetanensis PCR (NotDetected) Stool Rotavirus A PCR (NotDetected) Stl Adenov F 40/41 PCR (NotDetected) Stool Astrovirus (PCR) (NotDetected) Stool Campylobacter PCR (NotDetected) Stl C. diff Tox A/B PCR (NotDetected) Stool Cryptosporidium PCR (NotDetected) Stl E.coli Shiga Tox PCR (NotDetected) Stl Enterotoxigenic E PCR (NotDetected) Stool EPEC (PCR) (NotDetected) Stool EAEC (PCR) (NotDetected) Stl E. histolytica PCR (NotDetected) Stool Giardia Lamblia PCR (NotDetected) Stool Salmonella PCR (NotDetected) Stool Sapovirus (PCR) (NotDetected) Stl P. shigelloides PCR (NotDetected) Stl Shigella/EIEC PCR (NotDetected) St Y.enterocolitica PCR (NotDetected) Stool Vibrio (PCR) (NotDetected) Stl Vibrio cholerae PCR (NotDetected) Stl Norovirus GI/GII PCR (NotDetected) Urine Opiates Screen (Neg) Ur Methadone, Qual (Neg) Urine Barbiturates (Neg) Ur Phencyclidine (PCP) (Neg) U Amphetamin/Meth Scrn (Neg) MDMA (Ecstasy) Screen (Neg) U Benzodiazepines Scrn (Neg) Ur Cocaine Metabolite (Neg) U Marijuana (THC) Screen (Neg) Ethyl Alcohol mg/dL (<10.0) mg/dl SARS-CoV-2, RNA, NAAT (NEGATIVE) Administered Medications Pantoprazole Sodium 40 mg/ (Syringe) 10 mls @ 5 mls/min IV BID MAGDALENA Stop: 02/12/22 20:59 Last Admin: 01/13/22 19:54 Dose: 5 mls/min Documented By: DINAH Dextrose/Lactated Ringer's (D5w And Lactated Ringers) 1,000 mls @ 80 mls/hr IV .[id number] MAGDALENA Stop: 02/12/22 14:14 Last Admin: 01/13/22 19:59 Dose: 80 mls/hr Documented By: Infusion: 01/13/22 19:59 Dose: 80 mls/hr Documented By: Admin: 01/13/22 14:23 Dose: 80 mls/hr Documented By: KHOI Metoclopramide HCl (Metoclopramide Hcl Inj 5 Mg/Ml 2 Ml Vial) 10 mg IV Q6H PRN PRN Reason: nausea, vomiting (first line) Stop: 02/12/22 12:59 Last Admin: 01/13/22 14:18 Dose: 10 mg Documented By: KHOI Discontinued Medications Acetaminophen (Acetaminophen 500 Mg Tab) 1,000 mg PO Q8 MAGDALENA Stop: 02/11/22 05:59 Last Admin: 01/12/22 06:22 Dose: Not Given Documented By: MARITZA Fentanyl Citrate (Fentanyl Citrate 100 Mcg/2 Ml Vial) 100 mcg IV NOW STA Stop: 01/11/22 23:20 Last Admin: 01/11/22 23:39 Dose: 100 mcg Documented By: JAVED Fentanyl Citrate (Fentanyl Citrate 100 Mcg/2 Ml Vial) 100 mcg IV ONCE ONE Stop: 01/12/22 12:30 Last Admin: 01/12/22 13:34 Dose: Not Given Documented By: KHOI Fentanyl Citrate (Fentanyl Citrate 100 Mcg/2 Ml Vial) Confirm Administered Dose 100 mcg .ROUTE .STK-MED ONE Stop: 01/12/22 12:25 Last Admin: 01/12/22 12:32 Dose: 100 mcg Documented By: AMBER Fentanyl Citrate (Fentanyl Citrate 100 Mcg/2 Ml Vial) 100 mcg IV NOW STA Stop: 01/13/22 12:56 Last Admin: 01/13/22 13:08 Dose: 100 mcg Documented By: KHOI Sodium Chloride (Nss 1000ml) 1,000 mls @ 999 mls/hr IV .[id number] STA Stop: 01/12/22 00:17 Last Infusion: 01/12/22 01:15 Dose: 0 mls/hr Documented By: Admin: 01/11/22 23:37 Dose: 999 mls/hr Documented By: JAVED Pantoprazole Sodium 40 mg/ (Syringe) 10 mls @ 5 mls/min IV BID MAGDALENA Stop: 02/11/22 08:59 Last Admin: 01/12/22 21:45 Dose: 5 mls/min Documented By: Admin: 01/12/22 09:29 Dose: 5 mls/min Documented By: AMBER Lactated Ringer's (Lr) 1,000 mls @ 80 mls/hr IV .[id number] MAGDALENA Stop: 01/12/22 17:19 Last Infusion: 01/12/22 09:40 Dose: 0 mls/hr Documented By: Admin: 01/12/22 05:41 Dose: 80 mls/hr Documented By: MARITZA Dextrose/Lactated Ringer's (D5w And Lactated Ringers) 1,000 mls @ 125 mls/hr IV .Q8H MAGDALENA Stop: 02/11/22 08:44 Last Infusion: 01/13/22 08:19 Dose: 0 mls/hr Documented By: Admin: 01/13/22 02:05 Dose: 125 mls/hr Documented By: Infusion: 01/13/22 02:05 Dose: 125 mls/hr Documented By: Admin: 01/12/22 18:41 Dose: 125 mls/hr Documented By: Infusion: 01/12/22 18:30 Dose: 125 mls/hr Documented By: Infusion: 01/12/22 12:26 Dose: 125 mls/hr Documented By: Admin: 01/12/22 09:24 Dose: 80 mls/hr Documented By: AMBER Acetaminophen (Ofirmev) 1,000 mg in 100 mls @ 400 mls/hr IV Q8H PRN PRN Reason: pain breakhthrough Stop: 01/15/22 10:43 Last Infusion: 01/13/22 01:20 Dose: 0 mls/hr Documented By: Admin: 01/13/22 01:00 Dose: 400 mls/hr Documented By: Infusion: 01/12/22 11:45 Dose: 0 mls/hr Documented By: Admin: 01/12/22 11:20 Dose: 400 mls/hr Documented By: AMBER Pantoprazole Sodium 40 mg/ (Syringe) 10 mls @ 5 mls/min IV NOW ONE Stop: 01/13/22 14:14 Last Admin: 01/13/22 14:24 Dose: 5 mls/min Documented By: KHOI Ibuprofen (Ibuprofen 600 Mg Tab) 600 mg PO NOW STA Stop: 01/13/22 03:38 Last Admin: 01/13/22 03:46 Dose: 600 mg Documented By: JORDYN Ioversol (Optiray 300 100ml) 85 ml IV ONCE ONE Stop: 01/13/22 15:24 Last Admin: 01/13/22 15:25 Dose: 85 ml Documented By: IAN Ketorolac Tromethamine (Ketorolac Tromethamine 15 Mg/Ml Vial) 15 mg IV NOW ONE Stop: 01/12/22 02:55 Last Admin: 01/12/22 03:16 Dose: 15 mg Documented By: JAVED Ketorolac Tromethamine (Ketorolac 30 Mg/Ml Vial) 30 mg IV NOW ONE Stop: 01/12/22 10:46 Last Admin: 01/12/22 10:54 Dose: 30 mg Documented By: AMBER Metoclopramide HCl (Metoclopramide Hcl Inj 5 Mg/Ml 2 Ml Vial) 10 mg IV NOW STA Stop: 01/12/22 02:16 Last Admin: 01/12/22 02:48 Dose: 10 mg Documented By: JAVED Ondansetron HCl (Ondansetron Inj 2 Mg/Ml 2 Ml Vial) 4 mg IV NOW STA Stop: 01/11/22 21:08 Last Admin: 01/11/22 22:29 Dose: 4 mg Documented By: FAMILIA Ondansetron HCl (Ondansetron Inj 2 Mg/Ml 2 Ml Vial) 4 mg IV NOW STA Stop: 01/11/22 23:18 Last Admin: 01/11/22 23:38 Dose: 4 mg Documented By: JAVED Ondansetron HCl (Ondansetron Inj 2 Mg/Ml 2 Ml Vial) 4 mg IV Q4H PRN PRN Reason: Nausea Stop: 02/11/22 04:49 Last Admin: 01/13/22 10:22 Dose: 4 mg Documented By: Admin: 01/12/22 10:57 Dose: 4 mg Documented By: AMBER Pantoprazole Sodium (Pantoprazole 40 Mg Tab) 40 mg PO QA MAGDALENA Stop: 02/12/22 08:59 Last Admin: 01/13/22 08:25 Dose: 40 mg Documented By: KHOI Phytonadione (Phytonadione 5 Mg Tab) 2.5 mg PO NOW STA Stop: 01/13/22 07:45 Last Admin: 01/13/22 08:24 Dose: 2.5 mg Documented By: [facility] Imaging Data Radiologist's Impression: Abdomen/Pelvis CT 01/13/22 14:14 CT SCAN OF THE ABDOMEN AND PELVIS WITH IV CONTRAST CLINICAL HISTORY: Generalized abdominal pain. COMPARISON STUDY: Abdominal CT dated 01/11/2022. TECHNIQUE: Following the IV administration of 85 cc of Optiray 300, CT scan of the abdomen and pelvis is performed from the lung bases to the proximal femora. Images are reviewed in the axial, sagittal, and coronal planes. IV contrast was administered without complication. A dose lowering technique was utilized adhering to the principles of ALARA. CT DOSE: 551.35 mGy.cm FINDINGS: Lung bases: The heart is normal in size and without pericardial effusion. The lung bases are clear noting dependent atelectasis. Liver: The contrast-enhanced liver is normal in size, contour, and attenuation. There is no intrahepatic biliary ductal dilatation. The hepatic veins and portal veins are patent. Gallbladder: Unremarkable. Spleen: Normal in size and attenuation. Pancreas: Unremarkable. Adrenal glands: Unremarkable. Kidneys: The contrast enhanced kidneys are normal in size and without hydron ephrosis. The kidneys enhance symmetrically. Abdominal vasculature: The abdominal aorta is normal in course and caliber. Bowel: There is no bowel obstruction. There are scattered colonic diverticula without CT evidence of acute diverticulitis. The appendix is well-visualized and normal. Peritoneum: There is no intraperitoneal free air or abdominal ascites. Lymphadenopathy: None. Pelvic viscera: The bladder, prostate, and seminal vesicles are normal as visualized. Surgical clips are noted along the spermatic cord bilaterally. Skeletal structures: No lytic or blastic lesions are seen. IMPRESSION: No acute infectious or inflammatory findings are identified in the abdomen or pelvis. No change from 01/11/2022. ACT 112: Negative or not required by law. Electronically signed by: Emanuel Reece M.D. 01/13/2022 3:45 PM Blood Pressure Blood Pressure Findings: Elevated blood pressure Blood Pressure Disposition: further management by hospitalist Discharge Plan Visit Data Chief Complaint: Abdominal Pain Stated Complaint: ABDOMINAL PAIN ED Provider: Rachel Horton Discharge Problem: Intractable epigastric abdominal pain, History of acute pancreatitis Patient Disposition: Admitted As Inpatient Discharge Instructions Interventions: ED Discharge Assessment Last Done: 01/12/22 04:16
[2022-01-14] MEDS ORDERED: traMADol HCL 50 MG TABLET PO STA (01:14)
[2022-01-14 06:12] LABS: Basophils # (auto) 0.04 K/uL (0-0.2); Basophils % (auto) 0.7 %; Eosinophils # (auto) 0.05 K/uL (0-0.50); Eosinophils % (auto) 0.8 %; Hematocrit (blood only) 44.2 % (40.1-51.0); Hemoglobin 15.2 g/dl (14.0-18.0); Immature Granulocytes # (auto) 0.02 K/uL (0.00-0.02); Immature Granulocytes % (auto) 0.3 %; Lymphocytes # (auto) 1.74 K/uL (1.2-3.4); Lymphocytes % (auto) 28.6 %; Mean Corpuscular Hemoglobin 29.9 pg (25.0-34.0); Mean Corpuscular Hgb Conc 34.4 g/dL (32.0-36.0); Mean Platelet Volume 10.1 fL (9.4-12.4); Monocytes % (auto) 6.6 %; Neutrophils # (auto) 3.83 K/uL (1.4-6.5); Platelet Count 179 K/uL (130-400); RDW Coefficient of Variation 11.9 % (11.5-14.5); RDW Standard Deviation 38.3 fL (36.4-46.3); Red Blood Count 5.08 M/uL (4.63-6.08); White Blood Count 6.08 K/ul (4.8-10.8)
[2022-01-14 06:29] LABS: Albumin Globulin Ratio 1.8 (0.9-2); Albumin Level 3.8 gm/dl (3.4-5.0); Bilirubin,Total 1.4 mg/dl (0.2-1.0); Calcium 8.5 mg/dl (8.5-10.1); Creatinine Clr Calc Pharmacy 96.2 ml/min; Est GFR (African American) 89.6 ml/min; Est GFR (Non-African American) 77.3 ml/min; Globulin 2.1 gm/dl (2.5-4.0); Magnesium 1.9 mg/dl (1.7-2.4); Potassium 3.1 mmol/L (3.5-5.1); Total Protein 5.9 gm/dl (6.0-8.3)
[2022-01-14] MEDS: PANTOprazole 40 MG in SYRINGE 0 ML IV SCH ×2 (08:23→19:49)
[2022-01-14] MEDS: D5W AND LACTATED RINGERS 1,000 ML IV SCH (08:23)
[2022-01-14] MEDS ORDERED: POTASSIUM CHLORIDE / WTR 10 MEQ/100 ML PLCT IV SCH (09:00)
[2022-01-14] MEDS: METOCLOPRAMIDE HCL INJ 5 MG/ML 2 ML VIAL IV PRN (10:01)
--- NOTE | 2022-01-14 11:09 | Gastroenterology Progress Note ---
Date of Service January 14, 2022 Assessment & Plan Admission and Anticipated Discharge Date Admission Date: January 13, 2022 Subjective Patient was seen and examined today, feels much better, no abdominal pain or vomiting, tolerated regular diet which has toast, eggs and Abad. at bedside as well. Had a nice discussion with them about his illness. He thinks Reglan worked better than Zofran. Yesterday had an episode of nausea after taking liquids, this causes dry heaving for almost half an hour which then resulted in his sharp abdominal pain. Diarrhea episode yesterday but not today. On exam abdomen is soft and nontender. Labs and CT scan reviewed. Normal H/H which argues against PUD and normal Lipase which rules out pancreatitis. LFTs normal except for mild elevation of T.bili, likely due to Gilbert's. Recommend: Continue supportive care for Ecoli related gastroenteritis for now including PPI, antiemetis, fluids, diet as tolerated but bland diet only, today is day 5 of his E.coli enteritis, I suggest ABx (Ciprofloxacin) if diarrhea persists more than 7 days. Can go home with PO PPI BID and PRN antiemetic. Plan for EUS as OP in few weeks. Recall GI if needed. Results & Data ([facility]) Vital Signs (Past 12 Hours) Vital Signs Temp Pulse Resp BP Pulse Ox O2 Del Method 01/14/22 03:00 37.0 C 90 17 149/80 H 94 Room Air
[2022-01-14] MEDS: POTASSIUM CHLORIDE CRTAB 20 MEQ TABCR PO SCH ×2 (11:59→19:49)
--- NOTE | 2022-01-14 14:46 | Hospitalist Progress Note ---
Date of Service January 14, 2022 Assessment & Plan (1) Diarrhea: Plan: Epic E. coli inducedsupportive care; currently no role for antibiotics; if persists would need to consider (2) Abdominal pain, epigastric: Plan: Unclear etiology; my sense is he better after IV PPI (? with spasm) but that is purely speculativeempirically continue; later switch to twice daily oral; GI reassessment appreciated (3) GERD (gastroesophageal reflux disease): Plan: Continue PPI (4) Nausea: Plan: Severe associated with #2symptomatic treatment (5) Elevated bilirubin: Plan: Uncertain significance; could be Gilbert's Plan Replace potassium; noted tendency to bradycardia; noted minimally elevated INRconsider possibly related to poor intake; empiric vitamin K given If persists after he resumes diet might need to consider checking PT with mix- not an urgent issue Admission and Anticipated Discharge Date Admission Date: January 13, 2022 Subjective Follow-up of presentation with nausea, vomiting, diarrheawas doing well yesterday morning when recurrence of severe nausea and severe abdominal pain; doing much better this a.m.; did have some loose stools overnight Physical Exam Physical Exam: Constitutional and general: In distress with pain, looks biologic age Head and face: No puffiness, atraumatic Eyes: No scleral icterus, extraocular movements normal Neck: Supple, no JVD Musculoskeletal: No acute joint swelling, no bony abnormalities Skin/dermatologic/integument: No rash, no purpura Hematologic and lymphatic: pallor none, no petechia Gastrointestinal/abdomen: Prominent tenderness epigastrium Neurologic: Cranial nerves intact, nonfocal Psychiatry: Awake, alert, pleasant, communicative Cardiovascular: Heart rhythm regular, no rub, no murmur, no gallop Respiratory: Chest movements equal, no use of accessory muscles, no adventitious sounds Extremities: No edema, no cyanosis Results & Data Results & Data ([facility]) Vital Signs (Past 12 Hours) Vital Signs Temp Pulse Resp BP Pulse Ox O2 Del Method 01/14/22 03:00 37.0 C 90 17 149/80 H 94 Room Air Laboratory Results Laboratory Results - last 24 hr 01/13/22 01/14/22 01/14/22 14:31 05:47 05:47 WBC 6.08 RBC 5.08 Hgb 15.2 Hct 44.2 MCV 87.0 MCH 29.9 MCHC 34.4 RDW Std Deviation 38.3 RDW Coeff of Daniella 11.9 Plt Count 179 MPV 10.1 Immature Gran % (Auto) 0.3 Neut % (Auto) 63.0 Lymph % (Auto) 28.6 [place] % (Auto) 6.6 Eos % (Auto) 0.8 Baso % (Auto) 0.7 Neut # (Auto) 3.83 Lymph # (Auto) 1.74 [place] # (Auto) 0.40 Eos # (Auto) 0.05 Baso # (Auto) 0.04 Immature Gran # (Auto) 0.02 Sodium 137 Potassium 3.1 L Chloride 104 Carbon Dioxide 27 Anion Gap 6 BUN 8 Creatinine 1.10 Est Cr Clr Drug Dosing 96.2 Est GFR ( Amer) 89.6 Est GFR (Non-Af Amer) 77.3 Fasting Glucose 112 H Calcium 8.5 Phosphorus 3.0 Magnesium 1.9 Total Bilirubin 1.4 H AST 21 ALT 11 Alkaline Phosphatase 39 Total Protein 5.9 L Albumin 3.8 Globulin 2.1 L Albumin/Globulin Ratio 1.8 Lipase 10 L PG Care Time/CCT Total # of Minutes Spent Total Time Spent with Patient: Total time spent is greater than 50% in coordination of care (as documented) at patient's floor/unit and/or counseling patient: Coding Level of Care Code 34822 Subseq Hosp Care Lvl 2 Diagnoses Diarrhea R19.7 Abdominal pain, epigastric R10.13 GERD (gastroesophageal reflux disease) K21.9 Nausea R11.0 Elevated bilirubin R17
[2022-01-15] MEDS: D5W AND LACTATED RINGERS 1,000 ML IV SCH (03:33)
[2022-01-15 06:04] LABS: Basophils # (auto) 0.04 K/uL (0-0.2); Basophils % (auto) 0.8 %; Eosinophils # (auto) 0.07 K/uL (0-0.50); Eosinophils % (auto) 1.5 %; Hematocrit (blood only) 43.9 % (40.1-51.0); Hemoglobin 15.5 g/dl (14.0-18.0); Immature Granulocytes # (auto) 0.01 K/uL (0.00-0.02); Immature Granulocytes % (auto) 0.2 %; Lymphocytes # (auto) 1.35 K/uL (1.2-3.4); Lymphocytes % (auto) 28.4 %; Mean Corpuscular Hemoglobin 30.3 pg (25.0-34.0); Mean Corpuscular Hgb Conc 35.3 g/dL (32.0-36.0); Mean Corpuscular Volume 85.9 fL (80.0-100.0); Mean Platelet Volume 10.1 fL (9.4-12.4); Monocytes # (auto) 0.32 K/uL (0.24-0.82); Monocytes % (auto) 6.7 %; Neutrophils # (auto) 2.97 K/uL (1.4-6.5); Neutrophils % (auto) 62.4 %; Platelet Count 169 K/uL (130-400); RDW Coefficient of Variation 11.9 % (11.5-14.5); RDW Standard Deviation 37.5 fL (36.4-46.3); Red Blood Count 5.11 M/uL (4.63-6.08); White Blood Count 4.76 K/ul (4.8-10.8)
[2022-01-15 06:15] LABS: INR 1.2 (0.9-1.1); Prothrombin Time 12.2 Seconds (9.0-12.0)
[2022-01-15 06:25] LABS: Albumin Globulin Ratio 1.7 (0.9-2); Albumin Level 3.8 gm/dl (3.4-5.0); Bilirubin,Total 1.5 mg/dl (0.2-1.0); Calcium 8.6 mg/dl (8.5-10.1); Creatinine Clr Calc Pharmacy 94.5 ml/min; Est GFR (African American) 87.7 ml/min; Est GFR (Non-African American) 75.7 ml/min; Globulin 2.2 gm/dl (2.5-4.0); Magnesium 1.9 mg/dl (1.7-2.4); Potassium 3.1 mmol/L (3.5-5.1)
[2022-01-15] MEDS ORDERED: POTASSIUM CHLORIDE CRTAB 20 MEQ TABCR PO STA (08:20)
[2022-01-15] MEDS ORDERED: POTASSIUM CHLORIDE CRTAB 20 MEQ TABCR PO ONE (09:15)
[2022-01-15] MEDS: PANTOprazole 40 MG in SYRINGE 0 ML IV SCH (10:50)
--- NOTE | 2022-01-15 13:40 | Discharge Summary ---
Date of Service January 15, 2022 Admission HPI Per Admitting Provider 51yo male with a history of GERD and pancreatitis presents with a one-day history of abdominal pain, nausea, and vomiting. Symptoms began late on 01/10. At that time he took a dose of mylanta but his pain continued to worsen. Patient has been nauseous and vomited once prior to arrival and once in ED triage. Patient reports his episode of vomiting in ED triage was greenish in color. Last BM was on 01/10 prior to symptom onset.Patient drinks alcohol about twice a month, one to two drinks per occasion. Patient is a never-smoker and denies other recreational substance use. Patient Denies fever, chills, CP, SOB, palp itations, diarrhea, hematochezia, melena, dysuria, numbness, tingling, weakness, or other complaints. Upon arrival, vitals were notable for elevated BP (150-180s/90-110s) and bradycardia (high 40s/low 50s). No tachypnea, patient afebrile, spO2 adequate on room air. Initial labs were notable for hyperbilirubinemia (1.7). No leukocytosis, no anemia, platelets wnl, no electrolyte abnormalities, AST/ALT/alk phos wnl. In the ED, patient was given zofran 4mg IV (x2), NSS 1L bolus, and fentanyl 100mcg IV (x1). Surrogate decision-maker in case of an emergency: Melinda Durand (cell: [phone]) Principal Diagnosis 1. E. coli induced enteritis 2. Hypokalemia - replaced/resolved Discharge Exam GENERAL: Well-developed, well-nourished. NAD. LUNGS: Clear to auscultation bilaterally. CARDIOVASCULAR: Regular rate and rhythm. ABDOMEN: Soft, non-tender and non-distended. BS normoactive x 4 quad. EXTREMITIES: No edema. Non-tender. Peripheral pulses +2/4. NEUROLOGIC: A&O x3. Nonfocal PSYCHIATRIC: Cooperative. Appropriate mood and affect. SKIN: Warm, dry, intact. No rashes or lesions. Discharge Data Allergies Allergy/AdvReac Type Severity Reaction Status Date / Time ciprofloxacin Allergy Severe SEVERLY ILL Verified 01/12/22 11:00 morphine Allergy Severe Redness of Verified 01/12/22 11:00 Skin Quinolones Allergy Unknown Unknown Verified 01/12/22 02:26 hydromorphone [From Dilaudid] AdvReac Intermediate Difficulty Verified 01/12/22 11:01 Breathing dexamethasone AdvReac Unknown Verified 01/12/22 11:00 Consultations 01/12/22 14:22 Consult Gastroenterology Routine Ordered Studies KUB X-Ray 01/12/22 02:54 KUB HISTORY: Acute generalized abdominal pain abdominal pain COMPARISON: CT abdomen and pelvis 01/11/2022 FINDINGS: Nonobstructive bowel gas pattern. Air-filled nondilated loops of large and small bowel are likely physiologic. Surgical clips of the upper scrotum. No renal calculi. No ureteral calculi. No pneumoperitoneum or pneumatosis. Degenerative changes of the lower lumbar spine. No fracture. IMPRESSION: Nonobstructive bowel gas pattern. ACT 112: Negative or not required by law. The above report was generated using voice recognition software. It may contain grammatical, syntax or spelling errors. Electronically signed by: Conner Mcclure M.D. 01/12/2022 6:59 AM Abdomen Ultrasound 01/12/22 02:57 US abdomen limited HISTORY: 51 years-old Male epigastric pain acute epigastric abdominal pain COMPARISON: CT abdomen and pelvis 01/11/2022 TECHNIQUE: Multiple real-time sonographic images of the right upper quadrant abdomen were obtained assessing grayscale appearance and color flow FINDINGS: The pancreas is mostly obscured by bowel gas. The liver is also partially obscured by bowel gas with the imaged portions appearing unremarkable. No hepatic mass identified. The liver measures up to 18.4 cm in length. Gallbladder sludge without cholelithiasis, wall thickening or pericholecystic fluid. Negative sonographic Mancuso's sign. The imaged right kidney is unremarkable without hydronephrosis. Normal common bile duct, 3 mm. IMPRESSION: 1. Mild layering gallbladder sludge. No cholelithiasis or sonographic evidence of acute cholecystitis. 2. No biliary ductal dilation. ACT 112: Negative or not required by law. The above report was generated using voice recognition software. It may contain grammatical, syntax or spelling errors. Electronically signed by: Conner Mcclure M.D. 01/12/2022 6:52 AM Abdomen/Pelvis CT 01/13/22 14:14 CT SCAN OF THE ABDOMEN AND PELVIS WITH IV CONTRAST CLINICAL HISTORY: Generalized abdominal pain. COMPARISON STUDY: Abdominal CT dated 01/11/2022. TECHNIQUE: Following the IV administration of 85 cc of Optiray 300, CT scan of the abdomen and pelvis is performed from the lung bases to the proximal femora. Images are reviewed in the axial, sagittal, and coronal planes. IV contrast was administered without complication. A dose lowering technique was utilized adhering to the principles of ALARA. CT DOSE: 551.35 mGy.cm FINDINGS: Lung bases: The heart is normal in size and without pericardial effusion. The lung bases are clear noting dependent atelectasis. Liver: The contrast-enhanced liver is normal in size, contour, and attenuation. There is no intrahepatic biliary ductal dilatation. The hepatic veins and portal veins are patent. Gallbladder: Unremarkable. Spleen: Normal in size and attenuation. Pancreas: Unremarkable. Adrenal glands: Unremarkable. Kidneys: The contrast enhanced kidneys are normal in size and without hydronephrosis. The kidneys enhance symmetrically. Abdominal vasculature: The abdominal aorta is normal in course and caliber. Bowel: There is no bowel obstruction. There are scattered colonic diverticula without CT evidence of acute diverticulitis. The appendix is well-visualized and normal. Peritoneum: There is no intraperitoneal free air or abdominal ascites. Lymphadenopathy: None. Pelvic viscera: The bladder, prostate, and seminal vesicles are normal as visualized. Surgical clips are noted along the spermatic cord bilaterally. Skeletal structures: No lytic or blastic lesions are seen. IMPRESSION: No acute infectious or inflammatory findings are identified in the abdomen or pelvis. No change from 01/11/2022. ACT 112: Negative or not required by law. Electronically signed by: Emanuel Reece M.D. 01/13/2022 3:45 PM Hospital Course (1) Diarrhea: Enteropathogenic E. coli inducedsupportive care - Treated with IVF, pain medications, PPI, and antiemetics - Seen by GI, appreciate assistance, advised no antibiotics unless diarrhea persists >7 days - Pt currently w/o diarrhea x 2 days - Can f/u for EUS with GI to be done as outpatient in a few weeks - Tolerating diet, no pain, n/v - Plan for d/c today (2) Abdominal pain, epigastric: Unclear etiology ?GERD/spasm - Seem better on PPI therapy, continue Protonix 40mg BID - Will d/c home Omeprazole (was only taking 10mg daily) - New rx sent for Protonix 40mg BID (3) GERD (gastroesophageal reflux disease): Continue PPI as above (4) Nausea: - Severe associated with #2symptomatic treatment - Reglan 10mg q6h prn n/v - No vomiting yesterday or today, tolerating oral intake - [place] that he got better relief with Reglan, therefore rx has been sent to pharmacy for this (5) Elevated bilirubin: - Uncertain significance, ?Gilbert's Plan Potassium replacement ordered. Advise that he consume diet rich in potassium (this is likely secondary to decreased oral intake and diarrhea). Follow up with GI as scheduled for EUS in a few weeks. NO need for antibiotics for his EPEC E. coli infection as per GI. Follow up with PCP within 1 week of discharge. Keep up with fluids to prevent dehydration. Plan has been d/w Dr. Franklin Pete who has also seen and evaluated this patient prior to discharge and is in agreement with the aforementioned. Total Time Total Time Spent Total Time Spent (In Minutes): >30 minutes Discharge Plan Discharge Items Patient Disposition: Home - Self-Care Reason For Visit: ABDOMINAL PAIN, NAUSEA Discharge Diagnosis: Inflammation of small intestines due to bacteria Activity: Resume your previous activity Non-emergency contact: Primary Care Provider Call non-emergency contact if: you have any medication questions and your symptoms worsen Follow-up/Referrals: Arslan Prince CRNP [Primary Care Provider] - Simi Prasad MD [Physician] - (follow up as scheduled ) Diet: Regular Addtl Attending Provider Instructions: You were hospitalized due to abdominal pain and diarrhea. You were found to have a bacteria in your stool which was causing inflammation. You have been treated with IV fluids, pain medications, anti-nausea medications and medications to reduce stomach acid. You are being discharged home on a different medication to suppress stomach acid called Protonix. The dose will be 40mg, one tablet in the morning before eating or drinking and one tablet before bed. The prescription has been sent to your pharmacy. You are also being prescribed anti-nausea medication. Reglan has been sent to your pharmacy. Keep up with your fluid intake to prevent dehydration. Eat foods that are rich in potassium. Follow up with gastroenterology as scheduled. Follow up with your family doctor within 1 week of discharge. If you have questions following your discharge, call the nonemergency number listed on your paperwork. In the event of a medical emergency, call 911. Pending Studies at Discharge: No Stand-Alone Forms: My [facility], Smoking Cessation Medications and DC Order Prescriptions: New pantoprazole [Protonix] 40 mg tablet,delayed release (DR/EC) 40 mg PO BID Qty: 60 0RF metoclopramide HCl [Reglan] 10 mg tablet 10 mg PO Q6H PRN (Reason: nausea and vomiting) Qty: 20 0RF Continued acetaminophen 500 mg Tablet 500 mg PO Q6H PRN (Reason: Pain, Moderate) Discontinued ondansetron 4 mg tablet,disintegrating 4 mg PO Q8H PRN (Reason: nausea and vomiting) 5 Days Qty: 15 0RF omeprazole 20 mg Tablet,Delayed Release (Dr/Ec) 10 mg PO DAILY Discharge Orders: Discharge Order (Routine); Ordered 01/15/22 Ordered By: Johana Gonzalez Admission Data Admit Date/Time: 01/13/22 15:41 Attending Provider: Franklin Pete Admit Provider: Evgeny Gentile Primary Care Provider: Arslan Prince Other Providers: Cesario Workman ; Simi Prasad Other Interventions: Discharge Summary Assessment (RN) Last Done: 01/15/22 13:50 Supervising Physician Co-Signing Physician Notes I supervised Johana Gonzalez PA-C on the care of this patient. I interviewed and examined the patient independently of her. The plan is as written in her note except for any following changes/exceptions: None No distress today. Feels a "switch has flipped" and not having any GI symptoms today. Ready for discharge. Coding Level of Care Code D/C DAY MANAGEMENT >30 MINS Diagnoses Diarrhea R19.7 Abdominal pain, epigastric R10.13 GERD (gastroesophageal reflux disease) K21.9 Nausea R11.0 Elevated bilirubin R17
== END 2022-01-15 14:32 | disposition home or self-care (01) ==
LOC: 3W 20:51 → ED 20:51 → SUATTDRO 01-12 02:46 → 3W 01-12 04:16 → 1E 01-12 12:08 → SUATTDRO 01-13 15:41 → 4W 01-13 18:15

== ENCOUNTER 2022-01-15 20:12 | Observation (INO) ==
[2022-01-15 20:49] LABS: Basophils # (auto) 0.02 K/uL (0-0.2); Basophils % (auto) 0.3 %; Eosinophils # (auto) 0.02 K/uL (0-0.50); Eosinophils % (auto) 0.3 %; Hematocrit (blood only) 47.3 % (40.1-51.0); Hemoglobin 16.9 g/dl (14.0-18.0); Immature Granulocytes # (auto) 0.01 K/uL (0.00-0.02); Immature Granulocytes % (auto) 0.1 %; Lymphocytes # (auto) 1.18 K/uL (1.2-3.4); Lymphocytes % (auto) 17.5 %; Mean Corpuscular Hemoglobin 30.1 pg (25.0-34.0); Mean Corpuscular Hgb Conc 35.7 g/dL (32.0-36.0); Mean Corpuscular Volume 84.3 fL (80.0-100.0); Monocytes # (auto) 0.38 K/uL (0.24-0.82); Monocytes % (auto) 5.6 %; Neutrophils # (auto) 5.15 K/uL (1.4-6.5); Neutrophils % (auto) 76.2 %; Platelet Count 214 K/uL (130-400); RDW Coefficient of Variation 11.9 % (11.5-14.5); RDW Standard Deviation 36.1 fL (36.4-46.3); Red Blood Count 5.61 M/uL (4.63-6.08); White Blood Count 6.76 K/ul (4.8-10.8)
[2022-01-15 21:11] LABS: Albumin Globulin Ratio 1.8 (0.9-2); Albumin Level 4.6 gm/dl (3.4-5.0); BUN Creatinine Ratio 9.3 (10-20); Bilirubin,Total 1.7 mg/dl (0.2-1.0); Calcium 9.6 mg/dl (8.5-10.1); Creatinine Clr Calc Pharmacy 81.6 ml/min; Est GFR (African American) 73.9 ml/min; Est GFR (Non-African American) 63.8 ml/min; Globulin 2.6 gm/dl (2.5-4.0); Potassium 3.6 mmol/L (3.5-5.1); Total Protein 7.2 gm/dl (6.0-8.3)
[2022-01-15] MEDS ORDERED: KETOROLAC TROMETHAMINE 15 MG/ML VIAL IV STA (21:52)
[2022-01-15] MEDS ORDERED: SODIUM CHLORIDE 0.9% 1000ML 1,000 ML IV SCH ×2 (22:00→22:15)
[2022-01-15] MEDS ORDERED: ONDANSETRON INJ 2 MG/ML 2 ML VIAL IV STA (22:05)
[2022-01-15] MEDS ORDERED: fentaNYL citrate 100 MCG/2 ML VIAL IV STA (22:51)
--- NOTE | 2022-01-15 23:16 | History & Physical Report ---
Date of Service January 15, 2022 Assessment & Plan (1) Abdominal pain: Plan: 51yo male with history of GERD, prior pancreatitis, admitted to [facility] 01/12/22 - 01/15/22 with acute abdominal pain and nausea found to be secondary to E. Coli induced enteritis. Patient was discharged home earlier today and returns with recurrence of abdominal pain and nausea. Pain is epigastric, severe with associated nausea and dry heaving. Pain is similar to presenting pain. No leukocytosis. LFTs and Lipase are WNL with exception of Tbili of 1.7 ?Persistent symptoms from enteritis vs GERD vs slowed motility in recovering infection -Admit to PCU (for purposes of IV Fentanyl - patient with allergy to Morphine and Dilaudid) -Check KUB - assess bowel gas pattern, ?perforation unlikely -Fentanyl 25mcg IV q 4 hours PRN -Protonix 40mg IV daily -Zofran 4mg IV q 6 hours PRN -Reglan 5mg IV q 6 hours PRN -Full liquid diet - advance to regular as tolerated (bland diet appreciated) -Repeat CBC, BMP, LFT in AM (2) GERD (gastroesophageal reflux disease): Plan: Chronic. -Protonix 40mg IV BID (3) E coli enteritis: Plan: Patient with EPEC enteritis. Source is unclear - possibly frozen chicken that he consumed prior to symptoms beginning. No ill family members. Patient has well water as does his family. His diarrhea has resolved - no BM today. Patient is passing flatus. -Continue symptomatic management with pain medications, anti-emetics, pro- motility and PPI -IVF and electrolyte repletion -Cautious advancement of diet F/E/N - LR at 125mL/hr, monitor electrolytes and replete as needed, full liquid advance as tolerated Ppx - Protonix BID, low risk for DVT Code - Full per discussion with patient Dispo - Obs to PCU History of Present Illness Chief Complaint: abdominal pain, nausea Primary Care Provider: SCOTT Hayes Reno Rojas is a 51yo male with history of GERD and prior pancreatitis. Patient was admitted to [facility] from 01/12/22 - 01/15/22 with E. coli induced enteritis. He was treated with IVF, pain medications, antiemetics and Protonix. He was evaluated by GI during his stay. Patient tolerated PO intake and had improved diarrhea and nausea and therefore was discharged to home earlier today (01/15/22) with PO Reglan, Zofran and Protonix. He was instructed to followup with GI in several weeks for an outpatient EUS. When patient got home he developed severe epigastric abdominal pain with nausea and dry heaving. He did not vomit. He denies abdominal bloating or distention, denies fever, chills, chest pain, cough or SOB. Diarrhea has resolved - no BM today but he is passing flatus without difficulty. Patient took his Zofran and Reglan with no improvement in symptoms therefore he returned to the ER. In the ER he is afebrile, hypertensive, otherwise HD stable. He is in discomfort but NAD. ER Course: NSS at 125mL/hr, Toradol 15mg IV, Zofran 4mg IV, Fentanyl 25mcg IV Allergies Allergy/AdvReac Type Severity Reaction Status Date / Time ciprofloxacin Allergy Severe SEVERLY ILL Verified 01/12/22 11:00 morphine Allergy Severe Redness of Verified 01/12/22 11:00 Skin Quinolones Allergy Unknown Unknown Verified 01/12/22 02:26 hydromorphone [From Dilaudid] AdvReac Intermediate Difficulty Verified 01/12/22 11:01 Breathing dexamethasone AdvReac Unknown Verified 01/12/22 11:00 Home Medications Medication Instructions Recorded Confirmed Type acetaminophen 500 mg tablet 500 mg PO Q6H PRN Pain, Moderate 05/04/21 01/12/22 History metoclopramide HCl 10 mg tablet 10 mg PO Q6H PRN nausea and 01/15/22 Rx (Reglan) vomiting #20 tabs pantoprazole 40 mg tablet,delayed 40 mg PO BID #60 tabs 01/15/22 Rx release (Protonix) Past Med/Surg History Medical History Cervical stenosis of spinal canal (06/09/14) COVID-19 GERD (gastroesophageal reflux disease) Pancreatitis Surgical History H/O arthroscopy H/O nasal septoplasty H/O sinus surgery History of neck surgery Family History Other Breast cancer Diabetes Denies family history of Coronary heart disease Colorectal cancer Social History Smoking Status: Never smoker Second Hand Exposure: No; Hx Alcohol Use: No Hx Substance Use: No Preferred Language: Cypriot Communication Ability: Effective Visual Impairment: No Limitations Hearing Ability: Normal Food Critic Required: No Beliefs That Will Affect Care: None marital status: Current Living Situation: Spouse Current Living Situation Comment: current occupational status: employed current occupation: [employer] How many Children do You have: 1 Feels Safe at Home: Yes Assistive Devices: None Review of Systems Review of Systems: All systems reviewed & are unremarkable except as noted in HPI & below Physical Exam Physical Exam: General: patient resting, in mild distress secondary to epigastric abdominal discomfort, AA&O x 4 Skin: warm, dry, intact, no rashes or lesions HEENT: NC/AT, PERRL, EOMI, anicteric sclera, conjunctiva without injection, external ear normal to inspection and nontender, nares patent, moist mucus membranes, dentition intact, no oropharyngeal lesions, neck supple, trachea midline, no LAD, no thyromegaly, no JVD Heart: +S1/S2, regular, no m/r/g Lungs: equal air entry bilaterally, no rales/rhonchi/wheezes Abd: +BS, soft, ND, tender in epigastric region with voluntary guarding, no masses/organomegaly/ascites Ext: warm, 2+ pulses in UE/LE bilaterally, no clubbing/cyanosis or edema Neuro: nonfocal, patient AA&O x 4, speech intact, no facial droop, moving all extremities on command with equal strength 5/5 Results & Data Results & Data ([facility]) Vital Signs (Past 12 Hours) Vital Signs Temp Pulse Resp BP Pulse Ox O2 Del Method 01/15/22 20:21 37.4 C 74 20 160/86 H 100 Room Air Laboratory Results Laboratory Results WBC 6.76 K/ul (4.8-10.8) 01/15/22 20:38 RBC 5.61 M/uL (4.63-6.08) 01/15/22 20:38 Hgb 16.9 g/dl (14.0-18.0) 01/15/22 20:38 Hct 47.3 % (40.1-51.0) 01/15/22 20:38 MCV 84.3 fL (80.0-100.0) 01/15/22: MCH 30.1 pg (25.0-34.0) 01/15/22: MCHC 35.7 g/dL (32.0-36.0) 01/15/22: RDW Std Deviation 36.1 fL (36.4-46.3) L 01/15/22: RDW Coeff of Daniella 11.9 % (11.5-14.5) 01/15/22: Plt Count 214 K/uL (130-400) 01/15/22: MPV 10.0 fL (9.4-12.4) 01/15/22: Immature Gran % (Auto) 0.1 % 01/15/22: Neut % (Auto) 76.2 % 01/15/22: Lymph % (Auto) 17.5 % 01/15/22: Burnett % (Auto) 5.6 % 01/15/22: Eos % (Auto) 0.3 % 01/15/22 20: Baso % (Auto) 0.3 % 01/15/22: Neut # (Auto) 5.15 K/uL (1.4-6.5) 01/15/22: Lymph # (Auto) 1.18 K/uL (1.2-3.4) L 01/15/22 20: Burnett # (Auto) 0.38 K/uL (0.24-0.82) 01/15/22: Eos # (Auto) 0.02 K/uL (0-0.50) 01/15/22: Baso # (Auto) 0.02 K/uL (0-0.2) 01/15/22: Immature Gran # (Auto) 0.01 K/uL (0.00-0.02) 01/15/22 20: Sodium 138 mmol/L (136-145) 01/15/22: Potassium 3.6 mmol/L (3.5-5.1) 01/15/22: Chloride 100 mmol/L (98-107) 01/15/22:38 Carbon Dioxide 27 mmol/L (21-32) 01/15/22 20:38 Anion Gap 11 (3-11) 01/15/22 20:38 BUN 12 mg/dl (6-23) 01/15/22 20:38 Creatinine 1.29 mg/dl (0.6-1.4) 01/15/22 20:38 Est Cr Clr Drug Dosing 81.6 ml/min 01/15/22 20:38 Est GFR ( Amer) 73.9 ml/min 01/15/22 20:38 Est GFR (Non-Af Amer) 63.8 ml/min 01/15/22 20:38 BUN/Creatinine Ratio 9.3 (10-20) L 01/15/22 20:38 Glucose 112 mg/dl (70-99(Fasting)) H 01/15/22 20:38 Calcium 9.6 mg/dl (8.5-10.1) 01/15/22 20:38 Total Bilirubin 1.7 mg/dl (0.2-1.0) H 01/15/22 20:38 AST 20 U/L (13-39) 01/15/22 20:38 ALT 13 U/L (7-52) 01/15/22 20:38 Alkaline Phosphatase 52 U/L (34-104) 01/15/22 20:38 Total Protein 7.2 gm/dl (6.0-8.3) 01/15/22 20:38 Albumin 4.6 gm/dl (3.4-5.0) 01/15/22 20:38 Globulin 2.6 gm/dl (2.5-4.0) 01/15/22 20:38 Albumin/Globulin Ratio 1.8 (0.9-2) 01/15/22 20:38 Lipase 17 U/L (11-82) 01/15/22 20:38 PG Care Time/CCT Total # of Minutes Spent Total Time Spent with Patient: Total time spent is greater than 50% in coordination of care (as documented) at patient's floor/unit and/or counseling patient: Coding Level of Care Code INT OBSERVATION CARE 50M LVL 2 Diagnoses Abdominal pain R10.9 GERD (gastroesophageal reflux disease) K21.9 E coli enteritis A04.4
[2022-01-15] MEDS ORDERED: METOCLOPRAMIDE HCL INJ 5 MG/ML 2 ML VIAL IV PRN (23:59)
[2022-01-15] MEDS ORDERED: fentaNYL citrate 100 MCG/2 ML VIAL IV PRN (23:59)
[2022-01-15] MEDS ORDERED: ONDANSETRON INJ 2 MG/ML 2 ML VIAL IV PRN (23:59)
[2022-01-16] MEDS: LACTATED RINGER'S 1,000 ML IV SCH ×2 (00:15→07:44)
[2022-01-16 00:53] LABS: Magnesium 1.8 mg/dl (1.7-2.4)
--- NOTE | 2022-01-16 01:13 | Emergency Department Note ---
History of Present Illness General Chief Complaint: Abdominal Pain Stated Complaint: ABDOMINAL PAIN Time Seen by Provider: 01/15/22 21:50 History of Present Illness Provider Complaint: abdominal pain Onset (ago): 1 week(s) Pain Consistency: constant Location: diffuse Maximum Pain Intensity: 0 Quality: + aching Relieved By: + nothing Exacerbated By: + nothing Context: no foreign travel, no sick contacts, no recent surgery/procedure or no recent injury Associated Symptoms: + nausea, + vomiting and + diarrhea; no fever, no chills, no dysuria, no hematemesis, no hematochezia, no melena, no hematuria, no syncope, no headache, no chest pain and no breathing difficulty Home Medications Medication Instructions Recorded Confirmed Type acetaminophen 500 mg tablet 500 mg PO Q6H PRN Pain, Moderate 05/04/21 01/12/22 History metoclopramide HCl 10 mg tablet 10 mg PO Q6H PRN nausea and 01/15/22 Rx (Reglan) vomiting #20 tabs pantoprazole 40 mg tablet,delayed 40 mg PO BID #60 tabs 01/15/22 Rx release (Protonix) Allergies Allergy/AdvReac Type Severity Reaction Status Date / Time ciprofloxacin Allergy Severe SEVERLY ILL Verified 01/12/22 11:00 morphine Allergy Severe Redness of Verified 01/12/22 11:00 Skin Quinolones Allergy Unknown Unknown Verified 01/12/22 02:26 hydromorphone [From Dilaudid] AdvReac Intermediate Difficulty Verified 01/12/22 11:01 Breathing dexamethasone AdvReac Unknown Verified 01/12/22 11:00 Past Med/Surg History Medical History Cervical stenosis of spinal canal (06/09/14) COVID-19 GERD (gastroesophageal reflux disease) Pancreatitis Surgical History H/O arthroscopy H/O nasal septoplasty H/O sinus surgery History of neck surgery Family History Other Breast cancer Diabetes Denies family history of Coronary heart disease Colorectal cancer Social History Smoking Status: Never smoker Second Hand Exposure: No; Hx Alcohol Use: No Hx Substance Use: No Preferred Language: Kuwaiti Communication Ability: Effective Visual Impairment: No Limitations Hearing Ability: Normal Forming Roll Operator Required: No Beliefs That Will Affect Care: None marital status: Current Living Situation: Spouse Current Living Situation Comment: current occupational status: employed current occupation: [employer] How many Children do You have: 1 Other Information That Helps Us Care for You: No Feels Safe at Home: Yes Safety Concerns: Feels Safe At This Time Assistive Devices: None Review of Systems A total of 10 systems reviewed and were otherwise negative Physical Exam Vital Signs: Vital Signs - 24 hr 01/15/22 20:21 Temperature 37.4 C Temperature Source Temporal Artery Sc an Pulse Rate 74 Respiratory Rate 20 Respiratory Effort / Characteristics Non-Labored Sponta neous Respiratory Depth Normal Blood Pressure 160/86 H Blood Pressure Oksana n 110 Blood Pressure Pos ition Sitting Pulse Oximetry 100 Oxygen Delivery Me thod Room Air Sepsis Recent Feve r Within 48 Hours No Sepsis New/Unexpla ined Change in Men jimmy Status N/A Sepsis Action Take n by Nursing No Action Required Physical Exam: Physical Exam GENERAL: He is oriented to person, place, and time. He appears well-developed and well-nourished. He does not appear distressed. HENT: Exam performed. - Head: Normocephalic and atraumatic. - Right Ear: External ear normal. No mastoid tenderness. - Left Ear: External ear normal. No mastoid tenderness. - Mouth/Throat: The oropharynx is clear and moist. No trismus in the jaw. No dental abscesses or uvula swelling. No oropharyngeal exudate or tonsillar absce sses. EYES: Conjunctivae and EOM are normal. Pupils are equal, round, and reactive to light. Right eye exhibits no discharge. Left eye exhibits no discharge. No scleral icterus. NECK: Normal range of motion. Neck supple. No JVD present. No spinous process tenderness present. No carotid bruit present. No rigidity. No tracheal deviation and normal range of motion present. No Brudzinski's sign and no Kernig's sign noted. CV: Normal rate, regular rhythm, normal heart sounds and intact distal pulses. There is no peripheral edema. Palpable radial pulses bue. PULM/CHEST: Effort normal and breath sounds normal. No respiratory distress. No stridor. He has no wheezes. He has no rales. - Chest Wall: He exhibits no tenderness. ABD: The abdomen is soft. Bowel sounds are normal. He has no distension. No mass is present. There is no tenderness. There is no rebound, no guarding, no Mancuso's sign and no tenderness at McBurney's point. Rovsig negative. MUSC/SKEL: Normal range of motion. There is no peripheral edema, tenderness or deformity. LYMPH: No cervical adenopathy. NEURO: He is alert and oriented to person, place, and time. He has normal strength. No cranial nerve deficit or sensory deficit. Coordination and gait normal. GCS eye subscore is 4. GCS verbal subscore is 5. GCS motor subscore is 6. Cerebellar tests wnl. SKIN: Skin is warm and dry. He is not diaphoretic. PSYCH: He has a normal mood and affect. Behavior is normal. Judgment and thought content normal. Course Course 2149: The patient was evaluated in room C2. A complete history and physical exam was performed Administered Medications Lactated Ringer's (Lr) 1,000 mls @ 125 mls/hr IV .Q8H MAGDALENA Stop: 01/16/22 15:58 Last Admin: 01/16/22 00:15 Dose: 125 mls/hr Documented By: SJ Discontinued Medications Fentanyl Citrate (Fentanyl Citrate 100 Mcg/2 Ml Vial) 25 mcg IV NOW STA Stop: 01/15/22 22:52 Last Admin: 01/15/22 22:56 Dose: 25 mcg Documented By: BRUCE Sodium Chloride (Nss 1000ml) 1,000 mls @ 125 mls/hr IV .Q8H MAGDALENA Stop: 02/14/22 21:59 Last Infusion: 01/16/22 00:01 Dose: 0 mls/hr Documented By: Admin: 01/15/22 21:58 Dose: 125 mls/hr Documented By: BRUCE Sodium Chloride (Nss 1000ml) 1,000 mls @ 125 mls/hr IV .Q8H MAGDALENA Stop: 02/14/22 22:14 Last Admin: 01/15/22 22:07 Dose: Not Given Documented By: BRUCE Ketorolac Tromethamine (Ketorolac Tromethamine 15 Mg/Ml Vial) 15 mg IV NOW STA Stop: 01/15/22 21:53 Last Admin: 01/15/22 21:58 Dose: 15 mg Documented By: BRUCE Ondansetron HCl (Ondansetron Inj 2 Mg/Ml 2 Ml Vial) 4 mg IV NOW STA Stop: 01/15/22 22:06 Last Admin: 01/15/22 22:15 Dose: 4 mg Documented By: BRUCE Medical Decision Making Laboratory Data Result diagrams: 01/15/22 20:38 01/15/22 20:38 Lab Results 01/15/22 01/15/22 Range/Units 20:38 20:38 WBC 6.76 (4.8-10.8) K/ul RBC 5.61 (4.63-6.08) M/uL Hgb 16.9 (14.0-18.0) g/dl Hct 47.3 (40.1-51.0) % MCV 84.3 (80.0-100.0) fL MCH 30.1 (25.0-34.0) pg MCHC 35.7 (32.0-36.0) g/dL RDW Std Deviation 36.1 L (36.4-46.3) fL RDW Coeff of Daniella 11.9 (11.5-14.5) % Plt Count 214 (130-400) K/uL MPV 10.0 (9.4-12.4) fL Immature Gran % (Auto) 0.1 % Neut % (Auto) 76.2 % Lymph % (Auto) 17.5 % Isabella % (Auto) 5.6 % Eos % (Auto) 0.3 % Baso % (Auto) 0.3 % Neut # (Auto) 5.15 (1.4-6.5) K/uL Lymph # (Auto) 1.18 L (1.2-3.4) K/uL Isabella # (Auto) 0.38 (0.24-0.82) K/uL Eos # (Auto) 0.02 (0-0.50) K/uL Baso # (Auto) 0.02 (0-0.2) K/uL Immature Gran # (Auto) 0.01 (0.00-0.02) K/uL Sodium 138 (136-145) mmol/L Potassium 3.6 (3.5-5.1) mmol/L Chloride 100 (98-107) mmol/L Carbon Dioxide 27 (21-32) mmol/L Anion Gap 11 (3-11) BUN 12 (6-23) mg/dl Creatinine 1.29 (0.6-1.4) mg/dl Est Cr Clr Drug Dosing 81.6 ml/min Est GFR ( Amer) 73.9 ml/min Est GFR (Non-Af Amer) 63.8 ml/min BUN/Creatinine Ratio 9.3 L (10-20) Glucose 112 H (70-99(Fasting)) mg/dl Calcium 9.6 (8.5-10.1) mg/dl Magnesium 1.8 (1.7-2.4) mg/dl Total Bilirubin 1.7 H (0.2-1.0) mg/dl AST 20 (13-39) U/L ALT 13 (7-52) U/L Alkaline Phosphatase 52 (34-104) U/L Total Protein 7.2 (6.0-8.3) gm/dl Albumin 4.6 (3.4-5.0) gm/dl Globulin 2.6 (2.5-4.0) gm/dl Albumin/Globulin Ratio 1.8 (0.9-2) Lipase 17 (11-82) U/L MDM Narrative Cardiac monitoring: An order was placed for continuous cardiac monitoring. The monitor shows a rate of 60 with sinus rhythm Patient was seen during a time of extreme volume and extreme acuity in the emergency department. Nursing triage protocols were initiated and labs were drawn by protocol in the triage area. EMR reviewed. Patient was discharged from the hospital today for E. coli diarrhea. Patient has any abdominal pain. Patient was seen by GI. For discharge. Patient had a CT scan of the abdomen and x-ray of the abdomen as well as ultrasound of the abdomen which was negative during his most recent hospital admission. Labs within normal limits. Patient states he cannot take the pain and nausea at home and cannot go home and wishes to be readmitted to the hospital. [facility] hospitalist team Dr. Ward notified about the patient for admission. Impression & Plan Intractable vomiting with nausea Discharge Plan Visit Data Chief Complaint: Abdominal Pain Stated Complaint: ABDOMINAL PAIN ED Provider: Pratik Ludwig Discharge Problem: Intractable vomiting with nausea Patient Disposition: Admitted As Inpatient Discharge Instructions Interventions: ED Discharge Assessment Last Done: 01/15/22 23:43
[2022-01-16 06:43] LABS: Basophils # (auto) 0.04 K/uL (0-0.2); Basophils % (auto) 0.9 %; Eosinophils # (auto) 0.06 K/uL (0-0.50); Eosinophils % (auto) 1.3 %; Hematocrit (blood only) 42.8 % (40.1-51.0); Immature Granulocytes # (auto) 0.01 K/uL (0.00-0.02); Immature Granulocytes % (auto) 0.2 %; Lymphocytes # (auto) 1.29 K/uL (1.2-3.4); Lymphocytes % (auto) 27.7 %; Mean Corpuscular Hemoglobin 30.1 pg (25.0-34.0); Mean Corpuscular Volume 85.9 fL (80.0-100.0); Mean Platelet Volume 10.1 fL (9.4-12.4); Monocytes % (auto) 8.6 %; Neutrophils # (auto) 2.85 K/uL (1.4-6.5); Neutrophils % (auto) 61.3 %; Platelet Count 176 K/uL (130-400); RDW Coefficient of Variation 11.9 % (11.5-14.5); RDW Standard Deviation 37.1 fL (36.4-46.3); Red Blood Count 4.98 M/uL (4.63-6.08); White Blood Count 4.65 K/ul (4.8-10.8)
[2022-01-16 07:05] LABS: Albumin Level 3.7 gm/dl (3.4-5.0); BUN Creatinine Ratio 11.9 (10-20); Bilirubin Direct 0.2 mg/dl (0-0.2); Bilirubin,Total 1.5 mg/dl (0.2-1.0); Calcium 8.7 mg/dl (8.5-10.1); Est GFR (African American) 82.3 ml/min; Potassium 3.2 mmol/L (3.5-5.1); Total Protein 5.8 gm/dl (6.0-8.3)
[2022-01-16] MEDS ORDERED: POTASSIUM CHLORIDE CRTAB 20 MEQ TABCR PO STA (07:57)
[2022-01-16] MEDS ORDERED: PANTOprazole 40 MG in SYRINGE 0 ML IV SCH (09:00)
[2022-01-16] MEDS ORDERED: POTASSIUM CHLORIDE CRTAB 20 MEQ TABCR PO ONE (10:02)
--- NOTE | 2022-01-16 10:31 | XRay Report ---
KUB CLINICAL HISTORY: Generalized abdominal pain. Enteritis. Nausea. FINDINGS: 3 AP supine abdominal radiographs are correlated with abdominal CT dated 01/13/2022. There i s a nonobstructed abdominal bowel gas pattern. No evidence of intraperitoneal free air is seen on the se supine images. There are no abnormal abdominal calcifications. Phleboliths are noted in the pelvis . Surgical clips project over the scrotum. The bony structures appear intact. IMPRESSION: No acute abnormality is identified. Electronically signed by: Emanuel Reece M.D. 01/16/2022 10:29 AM
--- NOTE | 2022-01-16 10:54 | Discharge Summary ---
Date of Service January 16, 2022 Admission HPI Per Admitting Provider Reno Rojas is a 51yo male with history of GERD and prior pancreatitis. Patient was admitted to [facility] from 01/12/22 - 01/15/22 with E. coli induced enteritis. He was treated with IVF, pain medications, antiemetics and Protonix. He was evaluated by GI during his stay. Patient tolerated PO intake and had improved diarrhea and nausea and therefore was discharged to home earlier today (01/15/22) with PO Reglan, Zofran and Protonix. He was instructed to followup with GI in several weeks for an outpatient EUS. When patient got home he developed severe epigastric abdominal pain with nausea and dry heaving. He did not vomit. He denies abdominal bloating or distention, denies fever, chills, chest pain, cough or SOB. Diarrhea has resolved - no BM today but he is passing flatus without difficulty. Patient took his Zofran and Reglan with no improvement in symptoms therefore he returned to the ER. In the ER he is afebrile, hypertensive, otherwise HD stable. He is in discomfort but NAD. ER Course: NSS at 125mL/hr, Toradol 15mg IV, Zofran 4mg IV, Fentanyl 25mcg IV Principal Diagnosis Abdominal pain and nausea Discharge Exam GENERAL: 51 yo Well-developed, well-nourished WM. NAD. LUNGS: Clear to auscultation bilaterally. No accessory muscle use. No W/R/R. CARDIOVASCULAR: Regular rate and rhythm. No M/G/R. No JVD. ABDOMEN: Soft, non-tender and non-distended. No palpable masses. Bowel sounds normoactive x 4 quad. EXTREMITIES: No edema. Non-tender. Peripheral pulses +2/4. NEUROLOGIC: A&O x3. No focal neurological deficits. CN II-XII grossly intact. PSYCHIATRIC: Cooperative. Appropriate mood and affect. SKIN: Warm, dry, intact. No rashes or lesions. Discharge Data Allergies Allergy/AdvReac Type Severity Reaction Status Date / Time ciprofloxacin Allergy Severe SEVERLY ILL Verified 01/12/22 11:00 morphine Allergy Severe Redness of Verified 01/12/22 11:00 Skin Quinolones Allergy Unknown Unknown Verified 01/12/22 02:26 hydromorphone [From Dilaudid] AdvReac Intermediate Difficulty Verified 01/12/22 11:01 Breathing dexamethasone AdvReac Unknown Verified 01/12/22 11:00 Consultations 01/15/22 22:05 ED Decision to Admit Stat Ordered Studies KUB X-Ray 01/15/22 22:59 KUB CLINICAL HISTORY: Generalized abdominal pain. Enteritis. Nausea. FINDINGS: 3 AP supine abdominal radiographs are correlated with abdominal CT dated 01/13/2022. There is a nonobstructed abdominal bowel gas pattern. No evidence of intraperitoneal free air is seen on these supine images. There are no abnormal abdominal calcifications. Phleboliths are noted in the pelvis. Surgical clips project over the scrotum. The bony structures appear intact. IMPRESSION: No acute abnormality is identified. Electronically signed by: Emanuel Reece M.D. 01/16/2022 10:29 AM Hospital Course (1) Abdominal pain: 51yo male with history of GERD, prior pancreatitis, admitted to [facility] 01/12/22 - 01/15/22 with acute abdominal pain and nausea found to be secondary to E. Coli induced enteritis. Patient was discharged home earlier today and returns with recurrence of abdominal pain and nausea. Pain is epigastric, severe with associated nausea and dry heaving. Pain is similar to presenting pain. No leukocytosis. LFTs and Lipase are WNL with exception of Tbili of 1.7 ?Persistent symptoms from enteritis vs GERD vs slowed motility in recovering infection -Admitted to PCU (for purposes of IV Fentanyl - patient with allergy to Morphine and Dilaudid) -KUB obtained, no acute abnormality noted -Fentanyl 25mcg IV q 4 hours PRN -Protonix 40mg IV daily -Zofran 4mg IV q 6 hours PRN -Reglan 5mg IV q 6 hours PRN -Full liquid diet - advance to regular as tolerated (bland diet appreciated) -BMP this AM noted hypokalemia of 3.2, replacement ordered -TB stable at 1.5 (suspect gilbert's) -Abd pain and nausea has completely resolved, tolerating diet (2) GERD (gastroesophageal reflux disease): Chronic. -Protonix 40mg IV BID, can resume home Protonix 40mg po BID (3) E coli enteritis: Patient with EPEC enteritis. Source is unclear - possibly frozen chicken that he consumed prior to symptoms beginning. No ill family members. Patient has well water as does his family. His diarrhea has resolved - no BM today. Patient is passing flatus. -Continue symptomatic management with pain medications, anti-emetics, pro- motility and PPI -IVF and electrolyte repletion-IVF stopped, tolerating oral intake -Cautious advancement of diet Plan At this point, again, pt is medically stable for discharge. Instructed pt to continue with bland foods as tolerated. Small meals frequently throughout the day and keep up with fluids to maintain hydration. Follow up with GI for EUS as scheduled. F/u with PCP within 1 week. I would consider anti-inflammatories +/- IV APAP as opposed to use of Fentanyl if this pt should return to the ED again. Plan has been d/w Dr. Dory Pete. Total Time Total Time Spent Total Time Spent (In Minutes): <30 minutes Discharge Plan Discharge Items Patient Disposition: Home - Self-Care Reason For Visit: ABDOMINAL PAIN, NAUSEA Discharge Diagnosis: abdominal pain and nausea Activity: Resume your previous activity Non-emergency contact: Primary Care Provider and Principal Accounts Clerk Call non-emergency contact if: you have any medication questions and your symptoms worsen Follow-up/Referrals: Arslan Prince CRNP [Primary Care Provider] - Diet: Full liquid Addtl Attending Provider Instructions: Please follow all discharge instructions provided from your discharge on 01/15. Follow up with pcp within 1 week and health teacher as scheduled for endoscopic ultrasound. Stick with a bland diet for now. Call nonemergency number if any questions following your discharge. Pending Studies at Discharge: No Stand-Alone Forms: [employer], Smoking Cessation Medications and DC Order Prescriptions: Continued pantoprazole [Protonix] 40 mg tablet,delayed release (DR/EC) 40 mg PO BID Qty: 60 0RF metoclopramide HCl [Reglan] 10 mg tablet 10 mg PO Q6H PRN (Reason: nausea and vomiting) Qty: 20 0RF acetaminophen 500 mg Tablet 500 mg PO Q6H PRN (Reason: Pain, Moderate) Discharge Orders: Discharge Order (Routine); Ordered 01/16/22 Ordered By: Johana Gonzalez Admission Data Admit Date/Time: 01/15/22 22:57 Attending Provider: Franklin Pete Admit Provider: Blanquita Ward Primary Care Provider: Arslan Prince Other Providers: Ed,Blanquita M Coding Level of Care Code 78161 OBS Care - Discharge Diagnoses Abdominal pain R10.9 GERD (gastroesophageal reflux disease) K21.9 E coli enteritis A04.4
== END 2022-01-16 13:30 | disposition home or self-care (01) ==
LOC: ED 20:12 → 4W 20:12 → SUATTDRO 22:57 → 4W 23:43